=== PATIENT | female | born 1965 | race Caucasian/White ===

== ENCOUNTER → 2017-11-06 | Outpatient (CLI) | payer OTHER ==
[~2017-11-06] MED LIST: ASPI325 PO; ATOR10 PO; Aspirin EC325 MG PO; BASAGLAR K100 UNIT/1 SQ; BAYER CHEWABLE81 MG PO; BISA10S PR; BUSP10 PO; BUSP5 PO; Bactrim Ds Tab1 EACH PO; CARV3.125 PO; CLOP75 PO; CYCL10 PO; DOCU100 PO; DULO60; GABA600 PO; GLIP5 PO; HYDACE5 PO; IBUP800 PO; INSU100I6 SC; LEVSOD50 PO; LIDO5TO TOP; LISI20 PO; LISI5 PO; METF500 PO; METF500C PO; MIRALAX17 GM PO; Milk Of Ma400 MG/5 M PO; NAPR500 PO; Norco 5-325 Ta1 EACH PO; Novolog Fl100 UNIT/1 SC; Novolog100 UNIT/2; PANT40 PO; Plavix75 MG PO; Prinivil10 MG PO; Roxicodone15 MG PO; SIMV10 PO; SIMV40 PO; TOPI25 PO; TRAZ100 PO; TRAZ50 PO; Ventolin5 MG/1 ML INH
[2017-11-06 13:20] LABS: Source, Urine Catheter
[2017-11-06 13:55] LABS: Bilirubin, Urine Neg (Neg); Blood, Urine Neg (Neg); Glucose Qualitative, Urine Neg (Neg); Ketones, Urine Neg (Neg); Leukocyte Esterase, Urine 2+ (Neg); Nitrite, Urine Neg (Neg); Protein, Urine Neg (Neg); Specific Gravity, Urine 1.015 (1.003-1.022); Urobilinogen, Urine NORM (Normal)
[2017-11-06 13:57] LABS: Appearance, Urine Clear (Clear); Color, Urine Yellow (P-Yellow)
[2017-11-06 13:58] LABS: Bacteria Mod /hpf; Red Blood Cells, Urine 0-2 /hpf (0-2); Squamous Epithelial Cells Not Seen /hpf (Few)
== END | disposition home or self-care (01) ==
LOC: LAB UVN 13:19
PROVIDERS: Family Medicine
DX: N39.0 Urinary tract infection, site not specified (principal)
CPT/HCPCS: 81001; 87077; 87086; 87186

== ENCOUNTER 2018-07-02 18:00 | Emergency (ER) | payer OTHER ==
[~2018-07-02] VITALS: Ht 170.2 cm; Wt 99.0 kg
[~2018-07-02 18:00] MED LIST changes: -ATOR10 PO; -DULO60; -LEVSOD50 PO; -TOPI25 PO
[2018-07-02 18:35] LABS: Source, Urine Clean Catch
[2018-07-02 18:37] LABS: Appearance, Urine Clear (Clear); Bilirubin, Urine Neg (Neg); Blood, Urine 1+ (Neg); Color, Urine Yellow (P-Yellow); Glucose Qualitative, Urine 4+ (Neg); Ketones, Urine 3+ (Neg); Leukocyte Esterase, Urine 2+ (Neg); Nitrite, Urine Neg (Neg); Protein, Urine 2+ (Neg); Urobilinogen, Urine 1+ (Normal)
[2018-07-02 18:43] LABS: Bacteria Few /hpf; Squamous Epithelial Cells Few /hpf (Few)
[2018-07-02 18:47] LABS: U Amphetamine Screen Not Detected; U Barbituate Screen Not Detected; U Benzodiazapine Screen Not Detected; U Buprenorphine Screen Not Detected; U Cannabinoids Screen DETECTED; U Cocaine Screen Not Detected; U Methadone Screen Not Detected; U Methamphetamine Screen Not Detected; U Opiates Screen Not Detected; U Oxycodone Screen Not Detected; U Phencyclidine Screen Not Detected; U Propoxyphene Screen Not Detected
[2018-07-02 18:55] LABS: BASOPHILS ABSOLUTE AUTO 0.15 K/mm3 (0.00-0.23); BASOPHILS PERCENT AUTO 1 % (0-2); EOSINOPHILS ABSOLUTE AUTO 0.55 K/mm3 (0.00-0.68); EOSINOPHILS PERCENT AUTO 3 % (0-6); Hematocrit 48.9 % (33.0-51.0); Hemoglobin 17.1 g/dL (11.5-16.0); IMMATURE GRAN ABSOLUTE AUTO 0.09 K/mm3 (0.00-0.10); IMMATURE GRAN PERCENT AUTO 1 % (0-1); LYMPHOCYTES ABSOLUTE AUTO 2.88 K/mm3 (0.84-5.20); LYMPHOCYTES PERCENT AUTO 18 % (21-46); MONOCYTES ABSOLUTE AUTO 0.81 K/mm3 (0.16-1.47); MONOCYTES PERCENT AUTO 5 % (4-13); Mean Corpuscular HGB 27.9 pg (26.0-34.0); Mean Corpuscular Volume 80 fL (80-100); Mean Platelet Volume 10.3 fL (9.1-12.4); NEUTROPHILS ABSOLUTE AUTO 11.65 K/mm3 (1.96-9.15); NEUTROPHILS PERCENT AUTO 72 % (41-73); Platelet Count 268 K/mm3 (150-400); RDW Coefficient Variation 13.7 % (11.7-14.2); Red Blood Cell Count 6.13 M/mm3 (3.80-5.20); White Blood Cell Count 16.13 K/mm3 (4.00-11.30)
[2018-07-02 19:21] LABS: Alanine Aminotransfer (ALT/SGP 22 U/L (12-78); Albumin, Blood 3.7 g/dL (3.4-5.0); Albumin/Globulin Ratio 0.9 (0.8-1.8); Alk Phos 159 U/L (50-136); Anion Gap 10 mmol/L (6-16); Aspartate Aminotrans (AST/SGOT 22 U/L (12-37); Bilirubin, Total 0.5 mg/dL (0.1-1.0); Blood Urea Nitrogen 14 mg/dL (8-24); Bun/Creatinine Ratio 28.3 (12.0-20.0); CO2, Blood 23 mmol/L (21-32); Calcium, Blood 9.2 mg/dL (8.5-10.1); Chloride, Blood 98 mmol/L (98-108); Creatinine, Blood 0.49 mg/dL (0.40-1.00); Globulin, Blood 3.9 g/dL (2.2-4.0); Glomerular Filtration Rate >60 (60-); Glucose, Blood 364 mg/dL (70-99); Potassium, Blood 4.7 mmol/L (3.5-5.5); Sodium, Blood 131 mmol/L (136-145); Total Protein, Blood 7.6 g/dL (6.4-8.2)
[2018-07-02 23:17] LABS: International Normalized Ratio 0.95; Prothrombin Time Results 9.8 Sec (9.7-11.5)
== END 2018-07-03 00:04 | disposition short-term general hospital (02) ==
LOC: ER 18:00
PROVIDERS: Emergency Medicine
DX: I63.232 Cerebral infarction due to unspecified occlusion or stenosis of left carotid arteries (principal); E11.9 Type 2 diabetes mellitus without complications; I10 Essential (primary) hypertension; I25.2 Old myocardial infarction; Z79.899 Other long term (current) drug therapy; Z79.4 Long term (current) use of insulin; Z79.82 Long term (current) use of aspirin; Z87.891 Personal history of nicotine dependence
CPT/HCPCS: 70450; 70496; 70498; 80053; 81001; 85025; 85610; 85730; 87077; 87086; 87186; 93005; 93010; 96361; 96365; 96367; 96375; 96376; 99285-25; J0696; J1170; J1644; J1885; J2060; J3010; J7030; Q3014; Q9967

== ENCOUNTER 2018-10-21 14:03 | Inpatient (IN) | payer OTHER ==
[~2018-10-21] VITALS: Ht 170.2 cm; Wt 96.2 kg
[~2018-10-21 14:03] MED LIST changes: -BASAGLAR K100 UNIT/1 SQ; -CLOP75 PO; +DULO60; -GABA600 PO
[2018-10-21 15:12] LABS: BASOPHILS PERCENT AUTO 1 % (0-2); EOSINOPHILS ABSOLUTE AUTO 0.49 K/mm3 (0.00-0.68); EOSINOPHILS PERCENT AUTO 4 % (0-6); Hematocrit 46.5 % (33.0-51.0); Hemoglobin 14.8 g/dL (11.5-16.0); IMMATURE GRAN PERCENT AUTO 1 % (0-1); LYMPHOCYTES ABSOLUTE AUTO 3.15 K/mm3 (0.84-5.20); LYMPHOCYTES PERCENT AUTO 27 % (21-46); MONOCYTES ABSOLUTE AUTO 0.75 K/mm3 (0.16-1.47); MONOCYTES PERCENT AUTO 6 % (4-13); Mean Corpuscular HGB 25.5 pg (26.0-34.0); Mean Corpuscular HGB Conc 31.8 g/dL (31.5-36.5); NEUTROPHILS ABSOLUTE AUTO 7.11 K/mm3 (1.96-9.15); NEUTROPHILS PERCENT AUTO 61 % (41-73); Platelet Count 228 K/mm3 (150-400); RDW Coefficient Variation 15.6 % (11.7-14.2)
[2018-10-21 15:15] LABS: Mean Corpuscular Volume 80 fL (80-100)
[2018-10-21 15:30] LABS: Anion Gap 7 mmol/L (6-16); Blood Urea Nitrogen 21 mg/dL (8-24); Bun/Creatinine Ratio 30.6 (12.0-20.0); CO2, Blood 27 mmol/L (21-32); Calcium, Blood 8.8 mg/dL (8.5-10.1); Chloride, Blood 101 mmol/L (98-108); Creatinine, Blood 0.69 mg/dL (0.40-1.00); Glomerular Filtration Rate >60 (60-); Glucose, Blood 298 mg/dL (70-99); Potassium, Blood 4.5 mmol/L (3.5-5.5); Sodium, Blood 135 mmol/L (136-145)
[2018-10-21] MEDS ORDERED: FENTANYL1 EAC1 TD (15:43)
[2018-10-22 05:49] LABS: Hematocrit 43.9 % (33.0-51.0); Hemoglobin 13.7 g/dL (11.5-16.0); Mean Corpuscular HGB 25.3 pg (26.0-34.0); Mean Corpuscular HGB Conc 31.2 g/dL (31.5-36.5); Mean Corpuscular Volume 81 fL (80-100); Platelet Count 188 K/mm3 (150-400); RDW Coefficient Variation 15.8 % (11.7-14.2); RDW Standard Deviation 46.1 fL (35.1-46.3); Red Blood Cell Count 5.42 M/mm3 (3.80-5.20); White Blood Cell Count 9.77 K/mm3 (4.00-11.30)
[2018-10-22 06:09] LABS: Anion Gap 6 mmol/L (6-16); Blood Urea Nitrogen 24 mg/dL (8-24); Bun/Creatinine Ratio 35.6 (12.0-20.0); CO2, Blood 26 mmol/L (21-32); Calcium, Blood 8.4 mg/dL (8.5-10.1); Chloride, Blood 104 mmol/L (98-108); Creatinine, Blood 0.68 mg/dL (0.40-1.00); Glomerular Filtration Rate >60 (60-); Glucose, Blood 305 mg/dL (70-99); Potassium, Blood 4.3 mmol/L (3.5-5.5); Sodium, Blood 136 mmol/L (136-145)
== END 2018-10-24 12:21 | DRG 908 ==
LOC: ER 14:03 → SURS 16:55
PROVIDERS: Emergency Medicine; Nurse Practitioner Acute Care; Podiatrist; ADMIT Hospitalist
PROC: 0KBW0ZZ Excision of Left Foot Muscle, Open Approach (ICD-10-PCS; principal; 2018-10-23 13:45)
DX: T81.89XA Other complications of procedures, not elsewhere classified, initial encounter (principal); E11.52 Type 2 diabetes mellitus with diabetic peripheral angiopathy with gangrene; I96 Gangrene, not elsewhere classified; E11.621 Type 2 diabetes mellitus with foot ulcer; E03.9 Hypothyroidism, unspecified; Z95.5 Presence of coronary angioplasty implant and graft; Z86.73 Personal history of transient ischemic attack (TIA), and cerebral infarction without residual deficits; I25.10 Atherosclerotic heart disease of native coronary artery without angina pectoris; I10 Essential (primary) hypertension; E11.42 Type 2 diabetes mellitus with diabetic polyneuropathy; Z79.4 Long term (current) use of insulin; Z85.42 Personal history of malignant neoplasm of other parts of uterus; L97.523 Non-pressure chronic ulcer of other part of left foot with necrosis of muscle; F17.210 Nicotine dependence, cigarettes, uncomplicated; Z66 Do not resuscitate; E11.65 Type 2 diabetes mellitus with hyperglycemia
CPT/HCPCS: 36415; 73620; 80048; 82947; 83605; 85025; 85027; 85651; 87040; 87071; 87075; 87077; 87186; 87205; 93922; 96365; 96366; 96375; 99285-25; J1100; J1170; J2250; J2370; J2405; J3010; J3370; J7030; J7050; J7120; V2790

== ENCOUNTER 2018-11-24 14:34 | Inpatient (IN) | payer OTHER ==
[~2018-11-24] VITALS: Ht 170.2 cm; Wt 96.6 kg
[~2018-11-24 14:34] MED LIST changes: +FENTANYL1 EAC1 TD
[2018-11-24 15:02] LABS: BASOPHILS ABSOLUTE AUTO 0.05 K/mm3 (0.00-0.23); BASOPHILS PERCENT AUTO 1 % (0-2); EOSINOPHILS ABSOLUTE AUTO 0.32 K/mm3 (0.00-0.68); EOSINOPHILS PERCENT AUTO 4 % (0-6); Hematocrit 45.6 % (33.0-51.0); Hemoglobin 14.6 g/dL (11.5-16.0); IMMATURE GRAN ABSOLUTE AUTO 0.08 K/mm3 (0.00-0.10); IMMATURE GRAN PERCENT AUTO 1 % (0-1); LYMPHOCYTES ABSOLUTE AUTO 2.49 K/mm3 (0.84-5.20); LYMPHOCYTES PERCENT AUTO 34 % (21-46); MONOCYTES ABSOLUTE AUTO 0.47 K/mm3 (0.16-1.47); MONOCYTES PERCENT AUTO 6 % (4-13); Mean Corpuscular Volume 81 fL (80-100); Mean Platelet Volume 10.9 fL (9.1-12.4); NEUTROPHILS ABSOLUTE AUTO 3.97 K/mm3 (1.96-9.15); NEUTROPHILS PERCENT AUTO 54 % (41-73); Platelet Count 160 K/mm3 (150-400); RDW Coefficient Variation 15.4 % (11.7-14.2); RDW Standard Deviation 45.1 fL (35.1-46.3); Red Blood Cell Count 5.62 M/mm3 (3.80-5.20); White Blood Cell Count 7.38 K/mm3 (4.00-11.30)
[2018-11-24 15:30] LABS: Alanine Aminotransfer (ALT/SGP 121 U/L (12-78); Albumin/Globulin Ratio 0.8 (0.8-1.8); Alk Phos 480 U/L (50-136); Anion Gap 9 mmol/L (6-16); Aspartate Aminotrans (AST/SGOT 84 U/L (12-37); Bilirubin, Total 0.2 mg/dL (0.1-1.0); Blood Urea Nitrogen 10 mg/dL (8-24); Bun/Creatinine Ratio 15.4 (12.0-20.0); CO2, Blood 25 mmol/L (21-32); Calcium, Blood 8.3 mg/dL (8.5-10.1); Chloride, Blood 103 mmol/L (98-108); Creatinine, Blood 0.65 mg/dL (0.40-1.00); Globulin, Blood 3.8 g/dL (2.2-4.0); Glomerular Filtration Rate >60 (60-); Glucose, Blood 359 mg/dL (70-99); Potassium, Blood 4.1 mmol/L (3.5-5.5); Sodium, Blood 137 mmol/L (136-145); Total Protein, Blood 6.8 g/dL (6.4-8.2)
[2018-11-24] MEDS ORDERED: **INCOMPLETE MED REC (17:24)
[2018-11-24] MEDS ORDERED: LEVSOD50 PO (17:39)
[2018-11-24] MEDS ORDERED: ATOR80 PO (17:39)
[2018-11-24] MEDS ORDERED: CLOP75 PO (17:42)
[2018-11-24] MEDS ORDERED: TOPI50 PO (17:43)
[2018-11-24] MEDS ORDERED: TRAZ100 PO (17:44)
[2018-11-24] MEDS ORDERED: CARV3.125 PO (17:44)
[2018-11-24] MEDS ORDERED: GABA600 PO (17:46)
[2018-11-24] MEDS ORDERED: OXYCODONE HCL E10 MG PO (17:46)
[2018-11-24] MEDS ORDERED: PREVNAR 13 SYR0.5 ML IM (17:48)
[2018-11-24] MEDS ORDERED: Humalog100 UNIT/3 SC (17:49)
[2018-11-24] MEDS ORDERED: BASAGLAR K100 UNIT/1 SQ (17:51)
[2018-11-24] MEDS ORDERED: OXYC5 PO (17:52)
[2018-11-24] MEDS ORDERED: IBUP600 PO (17:54)
[2018-11-24] MEDS ORDERED: LACT10SY PO (17:55)
[2018-11-24] MEDS ORDERED: Milk Of Ma400 MG/5 M PO (17:56)
[2018-11-24] MEDS ORDERED: Enema133 M1 PR (17:58)
[2018-11-24] MEDS ORDERED: CVS DISPOSABLE399 ML PR (17:58)
[2018-11-24] MEDS ORDERED: GLYCPS PR (17:59)
[2018-11-25 04:21] LABS: Hematocrit 43.2 % (33.0-51.0); Hemoglobin 13.5 g/dL (11.5-16.0); Mean Corpuscular HGB 25.5 pg (26.0-34.0); Mean Corpuscular HGB Conc 31.3 g/dL (31.5-36.5); Mean Corpuscular Volume 82 fL (80-100); Mean Platelet Volume 10.9 fL (9.1-12.4); Platelet Count 136 K/mm3 (150-400); RDW Coefficient Variation 15.7 % (11.7-14.2); RDW Standard Deviation 46.1 fL (35.1-46.3); White Blood Cell Count 8.03 K/mm3 (4.00-11.30)
[2018-11-25 04:30] LABS: International Normalized Ratio 0.94
[2018-11-25 04:50] LABS: Alanine Aminotransfer (ALT/SGP 100 U/L (12-78); Albumin, Blood 2.6 g/dL (3.4-5.0); Albumin/Globulin Ratio 0.8 (0.8-1.8); Alk Phos 397 U/L (50-136); Anion Gap 6 mmol/L (6-16); Aspartate Aminotrans (AST/SGOT 57 U/L (12-37); Bilirubin, Total 0.5 mg/dL (0.1-1.0); Blood Urea Nitrogen 12 mg/dL (8-24); CO2, Blood 26 mmol/L (21-32); Calcium, Blood 8.2 mg/dL (8.5-10.1); Chloride, Blood 108 mmol/L (98-108); Creatinine, Blood 0.71 mg/dL (0.40-1.00); Globulin, Blood 3.3 g/dL (2.2-4.0); Glomerular Filtration Rate >60 (60-); Glucose, Blood 228 mg/dL (70-99); Potassium, Blood 4.3 mmol/L (3.5-5.5); Sodium, Blood 140 mmol/L (136-145); Total Protein, Blood 5.9 g/dL (6.4-8.2)
--- NOTE | 2018-11-25 07:47 | NUR ---
SHIFT SUMMARY PT A&O X4 T/O SHIFT. ADMITTED FROM ER; SEE PHOTOS OF WOUND D/T L GREAT TOE AMPUTAION SITE. GAUZE AND LOOSE PHILL WRAP FOR LIGHT SEROUS WEEPING AND PER PT REQUEST. LLE ELEVATED. PAIN IN LLE MANAGED PER EMAR. IV GTT PER EMAR. BLOOD SUGAR MANGED PER ORDERS AND PROTOCOL. RA; PT DENIES SOB AND CP. PT STAND PIVOT TO BSC X1 WITH ASSIT. PT BED MOBILE, ENCOURAGED TO REPOSITION WHEN AWAKE ON CARE ROUNDING AND WHEN PT AWAKE FOR OTHER CARE. CALL LIGHT IN REACH; PT DEMONSTRATES USE. SCD'S TO BLE'S. REPORT GIVEN TO DAY SHIFT RN; PT DECLINED BED SIDE REPORT IF SLEEPING.
[2018-11-25 15:32] LABS: Vancomycin, Trough 21.3 ug/mL (5.0-10.0)
--- NOTE | 2018-11-25 18:00 | NUR ---
SHIFT SUMMARY PT ANXIOUS FOR SURGERY TOMORROW. OUT TO SMOKE VIA W/C TWICE DURING MY SHIFT. C/O HIGH PAIN IN L FOOT. TOLERATING DIET, VOIDING, DISCUSSED BOWEL CARE.
--- NOTE | 2018-11-26 02:30 | NUR ---
PENDING OR TODAY.PT TO BE NPO AFTER 0300 AND REPORTS LONG ACTING OXYCONTIN INEFFECTIVE FOR PAIN.ALSO REPORTS FENTANYL MINIMALLY EFFECTIVE. PT REPORTS UNABLE TO SLEEP.I HAVE NOTED PT SLEEPING INTERMITTENTLY, BUT NOT SOLID AND AWAKENS EASILY. PT WISHES PO MEDS FOR PAIN OR SLEEP. I HAVE CALL OUT TO DR LOPEZ. WAITING RETURNED CALL..
[2018-11-26 04:12] LABS: BASOPHILS ABSOLUTE AUTO 0.04 K/mm3 (0.00-0.23); BASOPHILS PERCENT AUTO 1 % (0-2); EOSINOPHILS ABSOLUTE AUTO 0.38 K/mm3 (0.00-0.68); EOSINOPHILS PERCENT AUTO 5 % (0-6); Hematocrit 42.2 % (33.0-51.0); Hemoglobin 13.5 g/dL (11.5-16.0); IMMATURE GRAN ABSOLUTE AUTO 0.05 K/mm3 (0.00-0.10); IMMATURE GRAN PERCENT AUTO 1 % (0-1); LYMPHOCYTES PERCENT AUTO 28 % (21-46); MONOCYTES ABSOLUTE AUTO 0.43 K/mm3 (0.16-1.47); MONOCYTES PERCENT AUTO 6 % (4-13); Mean Corpuscular HGB 25.4 pg (26.0-34.0); Mean Platelet Volume 10.5 fL (9.1-12.4); NEUTROPHILS ABSOLUTE AUTO 4.48 K/mm3 (1.96-9.15); NEUTROPHILS PERCENT AUTO 60 % (41-73); Platelet Count 135 K/mm3 (150-400); RDW Coefficient Variation 15.6 % (11.7-14.2); RDW Standard Deviation 44.2 fL (35.1-46.3); Red Blood Cell Count 5.32 M/mm3 (3.80-5.20); White Blood Cell Count 7.48 K/mm3 (4.00-11.30)
[2018-11-26 04:17] LABS: Mean Corpuscular Volume 79 fL (80-100)
[2018-11-26 04:41] LABS: C-REACTIVE PROTEIN, EXT RANGE 0.618 mg/dL (0.000-0.300)
[2018-11-26 04:42] LABS: Alanine Aminotransfer (ALT/SGP 92 U/L (12-78); Albumin, Blood 2.6 g/dL (3.4-5.0); Albumin/Globulin Ratio 0.8 (0.8-1.8); Alk Phos 388 U/L (50-136); Anion Gap 9 mmol/L (6-16); Aspartate Aminotrans (AST/SGOT 48 U/L (12-37); Bilirubin, Total 0.5 mg/dL (0.1-1.0); Blood Urea Nitrogen 13 mg/dL (8-24); Bun/Creatinine Ratio 18.4 (12.0-20.0); CO2, Blood 25 mmol/L (21-32); Calcium, Blood 8.4 mg/dL (8.5-10.1); Chloride, Blood 104 mmol/L (98-108); Creatinine, Blood 0.71 mg/dL (0.40-1.00); Globulin, Blood 3.4 g/dL (2.2-4.0); Glomerular Filtration Rate >60 (60-); Glucose, Blood 299 mg/dL (70-99); Potassium, Blood 4.2 mmol/L (3.5-5.5); Sodium, Blood 138 mmol/L (136-145)
--- NOTE | 2018-11-26 06:10 | NUR ---
SUMMARY PT SLEEPING POST ATIVAN DOSE. REMAINS NPO PENDING POSSIBLE OR TODAY.
--- NOTE | 2018-11-26 09:10 | NUR ---
PT REFUSED PART OF ASSESSMENT. PT RIGHT FOOT PULSE PALPABLE, REFUSED ASSESSING L FOOT AT THIS TIME. PT REPORTS DOES NOT WANT TO MOVE AT THIS TIME FOR RN TO COMPLETE FULL ASSESSMENT. PT REPORTS "COCCYX IS SORE FROM LYING ON IT BUT I DO NOT HAVE ANY SORES ON IT." PT ALSO WISHES FOR RN TO NOT ASSESS OTHER SKIN, REPORTS NOT HAVING ANY REDNESS ANYWHERE (UNDER BREAST, GROIN, SKIN FOLDS). PT HAS DRESSING WITH PHILL WRAP TO LEFT FOOT. PT A/O. PT MEDS DISCUSSED WITH CLINICAL COORDINATOR PT IS NPO. SOME OF PO MEDS GIVEN WITH SIP OF WATER WITHOUT DIFFICULTY WITH HOB ELEVATED.
--- NOTE | 2018-11-26 10:58 | NUR ---
ISTRATE HERE TO SEE PT.
--- NOTE | 2018-11-26 17:00 | NUR ---
PT RECENTLY TO HAVE PROCEDURE WITH OTHER STAFF, DISCUSSED PT'S MEDS AND CBG LAST CHECKED AROUND NOON. PT WENT ON GURNEY. PT VOIDED BEFORE GOING TO HAVE PROCEDURE.
--- NOTE | 2018-11-26 17:22 | NUR ---
SHIFT SUMMARY PT BEEN NPO FOR PROCEDURE. PT BEEN ASSISTED WITH ADL'S PRN. PT BEEN MED PRN FOR PAIN. PT VOIDING. PT NOW OUT OF ROOM FOR PROCEDURE. PT BEEN EDUCATED ON SMOKING CESSATION.
--- NOTE | 2018-11-26 17:28 | NUR ---
1700- TO PACU FOR OR WAITING. C/O SEVERE PAIN IN BOTH FEET. PT UP TO VOID LARGE AMT.
--- NOTE | 2018-11-26 20:20 | NUR ---
PT RETURNED FROM PACU. REPORT FROM CHUN JIMENEZ. PT DROWSY, COOPERATIVE. SHE C/O PAIN AND DRY MOUTH. GIVEN WATER AND A YOGURT, MEDICATED FOR PAIN, MEDICATED WITH SCHEDULED MEDS PER EMAR.
[2018-11-26 21:01] LABS: Vancomycin, Trough 16.5 ug/mL (5.0-10.0)
--- NOTE | 2018-11-27 00:35 | NUR ---
CALLED DR. LOPEZ TO ASK FOR PAIN MEDICATION. PT STATES THE FENTANYL DOES NOT HELP THE PAIN. ORDERED DILAUDID 1-2 Q6H. WILL MEDICATE PT PER EMAR.
[2018-11-27 05:49] LABS: BASOPHILS ABSOLUTE AUTO 0.06 K/mm3 (0.00-0.23); BASOPHILS PERCENT AUTO 1 % (0-2); EOSINOPHILS PERCENT AUTO 4 % (0-6); Hematocrit 44.8 % (33.0-51.0); Hemoglobin 14.1 g/dL (11.5-16.0); IMMATURE GRAN ABSOLUTE AUTO 0.03 K/mm3 (0.00-0.10); IMMATURE GRAN PERCENT AUTO 0 % (0-1); LYMPHOCYTES ABSOLUTE AUTO 2.04 K/mm3 (0.84-5.20); LYMPHOCYTES PERCENT AUTO 20 % (21-46); MONOCYTES ABSOLUTE AUTO 0.55 K/mm3 (0.16-1.47); MONOCYTES PERCENT AUTO 5 % (4-13); Mean Corpuscular HGB 25.8 pg (26.0-34.0); Mean Corpuscular HGB Conc 31.5 g/dL (31.5-36.5); Mean Platelet Volume 10.9 fL (9.1-12.4); NEUTROPHILS ABSOLUTE AUTO 7.31 K/mm3 (1.96-9.15); NEUTROPHILS PERCENT AUTO 70 % (41-73); Platelet Count 148 K/mm3 (150-400); RDW Coefficient Variation 15.7 % (11.7-14.2); RDW Standard Deviation 46.8 fL (35.1-46.3); Red Blood Cell Count 5.46 M/mm3 (3.80-5.20); White Blood Cell Count 10.39 K/mm3 (4.00-11.30)
[2018-11-27 06:00] LABS: Mean Corpuscular Volume 82 fL (80-100)
[2018-11-27 06:10] LABS: Alanine Aminotransfer (ALT/SGP 88 U/L (12-78); Albumin, Blood 2.8 g/dL (3.4-5.0); Albumin/Globulin Ratio 0.8 (0.8-1.8); Alk Phos 377 U/L (50-136); Anion Gap 7 mmol/L (6-16); Aspartate Aminotrans (AST/SGOT 53 U/L (12-37); Bilirubin, Total 0.5 mg/dL (0.1-1.0); Blood Urea Nitrogen 13 mg/dL (8-24); Bun/Creatinine Ratio 17.6 (12.0-20.0); CO2, Blood 29 mmol/L (21-32); Calcium, Blood 8.6 mg/dL (8.5-10.1); Chloride, Blood 105 mmol/L (98-108); Creatinine, Blood 0.74 mg/dL (0.40-1.00); Globulin, Blood 3.3 g/dL (2.2-4.0); Glomerular Filtration Rate >60 (60-); Glucose, Blood 181 mg/dL (70-99); Potassium, Blood 4.1 mmol/L (3.5-5.5); Sodium, Blood 141 mmol/L (136-145); Total Protein, Blood 6.1 g/dL (6.4-8.2)
--- NOTE | 2018-11-27 07:31 | NUR ---
SHIFT SUMMARY PT IS POD 1 TRANSMETATARSAL AMPUTATION OF THE LEFT FOOT. SHE HAS HX OF CHRONIC PAIN, NONHEALING ULCERS, DIABETIC NEUROPATHY, AND DIFFICULT TO MANAGE PAIN. WE DID GET HER ADDITIONAL IV PAIN MEDICATION ORDERED LAST NIGHT SHE REPORTED THE FENTANYL WAS INEFFECTIVE AT MANAGING HER PAIN, BUT THE IV DILAUDID WAS NOT ESPECIALLY EFFECTIVE EITHER ACCORDING TO THE PATIENT. SHE IS 50% WT BEARING TO THE LLE BUT REFUSED TO GET UP LAST NIGHT. SHE USED THE BEDPAN. PT CRIES AND CUSSES R/T PAIN CONSTANTLY. REPORT PASSED TO ONCOMING SHIFT.
--- NOTE | 2018-11-27 18:15 | NUR ---
SUMMARY PATIENT DOZES AT TIME AND WHEN STAFF ENTERS ROOM MOANS AND THRASHES IN BEDS, PATIENT REQUESTS PAIN MEDICATION EACH TIME SHE IS AWAKENED AND TELLS ME THE LOWEST HER PAIN HAS BEEN THIS SHIFT IS 8. PATIENT REPORTS PAIN IN BILATERAL FEET WHICH IS WORSE IN SIRGICAL SITE. PATIENT REPOSITIONS SELF IN BED
--- NOTE | 2018-11-28 04:49 | NUR ---
SHIFT SUMMARY: PT S/P FOR PARTIAL L FOOT AMPUTATION. CONSISTANTLY RATING PAIN 8-9/10 DESPITE BEING MEDICATED. GETTING OXCONTIN BID, FENT PATCH AND DILAUDID 2-4 MG PRN FOR BREAKTHROUGH PAIN. GIVEN 3 MG OF DILAUDID AT APPROX 2150 LAST NIGHT- DECREASE IN BP AND HR AT APPROX 0000. BP AT 85/54 AND HR AT 50. FLUIDS INCREASED TO 125. BP INCREASED TO 98/66 AND HR TO 64 AN HOUR LATER. MORNING VS WNL. USING BEDPAN PRN. MEPILIX PLACED TO COCCYX.
[2018-11-28 05:10] LABS: BASOPHILS ABSOLUTE AUTO 0.05 K/mm3 (0.00-0.23); BASOPHILS PERCENT AUTO 1 % (0-2); EOSINOPHILS ABSOLUTE AUTO 0.43 K/mm3 (0.00-0.68); EOSINOPHILS PERCENT AUTO 4 % (0-6); Hematocrit 39.3 % (33.0-51.0); Hemoglobin 12.3 g/dL (11.5-16.0); IMMATURE GRAN ABSOLUTE AUTO 0.06 K/mm3 (0.00-0.10); IMMATURE GRAN PERCENT AUTO 1 % (0-1); LYMPHOCYTES ABSOLUTE AUTO 2.73 K/mm3 (0.84-5.20); LYMPHOCYTES PERCENT AUTO 25 % (21-46); MONOCYTES ABSOLUTE AUTO 0.97 K/mm3 (0.16-1.47); MONOCYTES PERCENT AUTO 9 % (4-13); Mean Corpuscular HGB 25.7 pg (26.0-34.0); Mean Corpuscular HGB Conc 31.3 g/dL (31.5-36.5); Mean Corpuscular Volume 82 fL (80-100); Mean Platelet Volume 10.3 fL (9.1-12.4); NEUTROPHILS ABSOLUTE AUTO 6.87 K/mm3 (1.96-9.15); NEUTROPHILS PERCENT AUTO 62 % (41-73); Platelet Count 130 K/mm3 (150-400); RDW Coefficient Variation 15.9 % (11.7-14.2); RDW Standard Deviation 47.1 fL (35.1-46.3); Red Blood Cell Count 4.78 M/mm3 (3.80-5.20); White Blood Cell Count 11.11 K/mm3 (4.00-11.30)
[2018-11-28 05:26] LABS: Anion Gap 8 mmol/L (6-16); Blood Urea Nitrogen 18 mg/dL (8-24); Bun/Creatinine Ratio 22.6 (12.0-20.0); CO2, Blood 25 mmol/L (21-32); Calcium, Blood 8.1 mg/dL (8.5-10.1); Chloride, Blood 102 mmol/L (98-108); Glomerular Filtration Rate >60 (60-); Glucose, Blood 207 mg/dL (70-99); Potassium, Blood 4.8 mmol/L (3.5-5.5); Sodium, Blood 135 mmol/L (136-145)
--- NOTE | 2018-11-28 18:17 | NUR ---
SHIFT SUMMARY PT HAS DONE WELL THIS SHIFT. C/O PAIN IN LLE R/T AMPUTATION. MEDICATED WITH 2MG DILAUDID Q4 AND SCHEDUALED OXYCONTIN. SBA TO BEDSIDE COMODE, PT TOLERATED WELL. PHILL WRAP ON LEFT FOOT C/D/I.
--- NOTE | 2018-11-29 04:34 | NUR ---
SHIFT SUMMARY: PT HAS DONE WELL THIS SHIFT. CONTINUES TO RATE PAIN 7-8/10 HOWEVER REPORTS DOING BETTER TODAY. MEDICATED WITH SCHED OXY 10 MG AND 2MG DILAUDID Q4 PER EMAR. OOB TO BSC WITH ONE SBA. 50% WB TO LL. PT REPORTS INCREASED PAIN DURING TRANFERS. CONTINUE TO ENCOURAGE GETTING OUT OF BED. MEPILEX DRESSING ON COCCYX FOR REDDENED AREA. PT EDUCATED AND ENCOURAGED TO USE IS, HOWEVER PT REFUSED. FLUIDS INFUSING WITH ABX. VOIDING AND PIPPA REG DIET.
[2018-11-29 09:06] LABS: BASOPHILS ABSOLUTE AUTO 0.08 K/mm3 (0.00-0.23); BASOPHILS PERCENT AUTO 1 % (0-2); EOSINOPHILS ABSOLUTE AUTO 0.33 K/mm3 (0.00-0.68); EOSINOPHILS PERCENT AUTO 4 % (0-6); Hematocrit 41.7 % (33.0-51.0); Hemoglobin 13.2 g/dL (11.5-16.0); IMMATURE GRAN ABSOLUTE AUTO 0.08 K/mm3 (0.00-0.10); IMMATURE GRAN PERCENT AUTO 1 % (0-1); LYMPHOCYTES PERCENT AUTO 17 % (21-46); MONOCYTES ABSOLUTE AUTO 0.62 K/mm3 (0.16-1.47); MONOCYTES PERCENT AUTO 7 % (4-13); Mean Corpuscular HGB 25.9 pg (26.0-34.0); Mean Corpuscular HGB Conc 31.7 g/dL (31.5-36.5); Mean Corpuscular Volume 82 fL (80-100); Mean Platelet Volume 10.1 fL (9.1-12.4); NEUTROPHILS PERCENT AUTO 71 % (41-73); Platelet Count 138 K/mm3 (150-400); RDW Coefficient Variation 15.8 % (11.7-14.2); RDW Standard Deviation 46.7 fL (35.1-46.3); Red Blood Cell Count 5.09 M/mm3 (3.80-5.20); White Blood Cell Count 8.91 K/mm3 (4.00-11.30)
[2018-11-29 09:17] LABS: Alanine Aminotransfer (ALT/SGP 88 U/L (12-78); Albumin, Blood 2.5 g/dL (3.4-5.0); Albumin/Globulin Ratio 0.7 (0.8-1.8); Alk Phos 486 U/L (50-136); Anion Gap 6 mmol/L (6-16); Aspartate Aminotrans (AST/SGOT 76 U/L (12-37); Bilirubin, Total 0.6 mg/dL (0.1-1.0); Blood Urea Nitrogen 17 mg/dL (8-24); Bun/Creatinine Ratio 24.1 (12.0-20.0); CO2, Blood 28 mmol/L (21-32); Calcium, Blood 8.4 mg/dL (8.5-10.1); Chloride, Blood 101 mmol/L (98-108); Creatinine, Blood 0.71 mg/dL (0.40-1.00); Globulin, Blood 3.7 g/dL (2.2-4.0); Glomerular Filtration Rate >60 (60-); Glucose, Blood 257 mg/dL (70-99); Potassium, Blood 4.5 mmol/L (3.5-5.5); Sodium, Blood 135 mmol/L (136-145); Total Protein, Blood 6.2 g/dL (6.4-8.2)
[2018-11-29 09:32] LABS: Vancomycin, Trough 22.5 ug/mL (5.0-10.0)
[2018-11-29 15:23] LABS: Vancomycin, Random 17.3 ug/mL
--- NOTE | 2018-11-29 18:00 | NUR ---
SUMMARY PATIENT WITH FREQUENT REQUESTS FOR PAIN MEDICATION, DOZING AND WATCHING MOVIES ON HER IPAD THROUGHOUT SHIFT. OOB TO COMMODE WITH STANDBY ASSIST. LEFT FOOT DRESSING DRY AND INTACT
[2018-11-30 04:41] LABS: BASOPHILS ABSOLUTE AUTO 0.06 K/mm3 (0.00-0.23); BASOPHILS PERCENT AUTO 1 % (0-2); EOSINOPHILS ABSOLUTE AUTO 0.39 K/mm3 (0.00-0.68); EOSINOPHILS PERCENT AUTO 5 % (0-6); Hematocrit 39.8 % (33.0-51.0); Hemoglobin 12.6 g/dL (11.5-16.0); IMMATURE GRAN ABSOLUTE AUTO 0.05 K/mm3 (0.00-0.10); IMMATURE GRAN PERCENT AUTO 1 % (0-1); LYMPHOCYTES ABSOLUTE AUTO 1.81 K/mm3 (0.84-5.20); LYMPHOCYTES PERCENT AUTO 23 % (21-46); MONOCYTES ABSOLUTE AUTO 0.56 K/mm3 (0.16-1.47); MONOCYTES PERCENT AUTO 7 % (4-13); Mean Corpuscular HGB 25.8 pg (26.0-34.0); Mean Corpuscular HGB Conc 31.7 g/dL (31.5-36.5); Mean Corpuscular Volume 82 fL (80-100); Mean Platelet Volume 10.4 fL (9.1-12.4); NEUTROPHILS ABSOLUTE AUTO 4.96 K/mm3 (1.96-9.15); NEUTROPHILS PERCENT AUTO 63 % (41-73); Platelet Count 158 K/mm3 (150-400); RDW Coefficient Variation 15.5 % (11.7-14.2); RDW Standard Deviation 45.9 fL (35.1-46.3); Red Blood Cell Count 4.88 M/mm3 (3.80-5.20); White Blood Cell Count 7.83 K/mm3 (4.00-11.30)
--- NOTE | 2018-11-30 04:54 | NUR ---
SHIFT SUMMARY: NO ACUTE CHANGES THIS SHIFT. MEDICATING WITH SCHED OXYCONTIN 10MG AND 2MG DILAUDID PRN. PT SHOWING SOME IMPROVEMENT WITH PAIN MANAGEMENT. RESTING MOST OF SHIFT. PIVOTING TO BSC WITH ONE SBA. PLAN FOR ULTRASOUND OF ABD THIS AM R/T ELEVATED LFT'S.
[2018-11-30 04:59] LABS: Alanine Aminotransfer (ALT/SGP 105 U/L (12-78); Albumin, Blood 2.5 g/dL (3.4-5.0); Albumin/Globulin Ratio 0.7 (0.8-1.8); Alk Phos 544 U/L (50-136); Anion Gap 8 mmol/L (6-16); Aspartate Aminotrans (AST/SGOT 94 U/L (12-37); Bilirubin, Total 0.3 mg/dL (0.1-1.0); Blood Urea Nitrogen 17 mg/dL (8-24); CO2, Blood 27 mmol/L (21-32); Calcium, Blood 8.6 mg/dL (8.5-10.1); Chloride, Blood 102 mmol/L (98-108); Creatinine, Blood 0.63 mg/dL (0.40-1.00); Globulin, Blood 3.7 g/dL (2.2-4.0); Glomerular Filtration Rate >60 (60-); Glucose, Blood 201 mg/dL (70-99); Potassium, Blood 4.2 mmol/L (3.5-5.5); Sodium, Blood 137 mmol/L (136-145); Total Protein, Blood 6.2 g/dL (6.4-8.2)
--- NOTE | 2018-11-30 08:10 | NUR ---
PT ASLEEP WAKES TO VERBAL STIMULI PT REPORTS PAIN 7/10 DRESSING CDI STUMP ELEV PT ALSO REPORTING ABD PAIN TO L LOWER SIDE NO NAUSEA BUT OFF AND ON DIARRHEA
[2018-11-30 09:47] LABS: Vancomycin, Trough 16.7 ug/mL (5.0-10.0)
--- NOTE | 2018-11-30 14:32 | NUR ---
pt visiting with family npo for us of abd
--- NOTE | 2018-11-30 16:13 | NUR ---
Initial Visit: Consult received for pain/symptom managment. Pt is well known to Palliative Care. She is alert, oriented, anxious at this time. She reports pain 10/10 to nursing, she does not share where the pain is. She is moaning and irritable, she seems afraid. Pt declines therapeutic hand massage. She declines scalp or hindu therapeutic massage. She does accept a lavender patch. She reports that she has used lavander in the past, denies sensitivity/allergy. Instructions were reviewed with pt and nurse. Patch to be removed at 8 hours. Pt and nursing verbalize understanding. Pt does not agree to guided imagery exercise. Instructed that she is declining therapies that are meant to promote overall wellness. She states that she does not want them at this time. Will remain available.
--- NOTE | 2018-11-30 17:31 | NUR ---
pt eating dinner meds given as sched
--- NOTE | 2018-11-30 18:51 | NUR ---
pt wanting to know if she can have pain meds next dose is due at 2000 for iv pain meds 2100 for oral pain meds
--- NOTE | 2018-12-01 06:46 | NUR ---
SUMMARY PT SLEPT OFF AND ON. NO ACUTE CHANGES. RATES PAIN LEVEL 7-8 WITH GOAL LEVEL BEING 6. PT APPEARS TO FALL SLEEP AFTER DILAUDID.
--- NOTE | 2018-12-01 08:00 | NUR ---
PT SITTING UP IN BED REPORTS PAIN / PAIN STATED SHE FEELS LIKE SHE MIGHT BE GETTING CONSTIPATED REQ MIRALAX ASSISTED PT TO BSC TO VOID ALSO TALKED WITH PT ABOUT STARTING PHYSICAL THEARPY PT DID HAVE ANXIETY RE THIS
--- NOTE | 2018-12-01 08:25 | NUR ---
MES GIVEN SCHED PT REQ A ICE PACK FOR HER FOOT AND SOME LOTION
[2018-12-01 09:04] LABS: Alanine Aminotransfer (ALT/SGP 110 U/L (12-78); Albumin, Blood 2.5 g/dL (3.4-5.0); Albumin/Globulin Ratio 0.6 (0.8-1.8); Alk Phos 570 U/L (50-136); Anion Gap 5 mmol/L (6-16); Aspartate Aminotrans (AST/SGOT 104 U/L (12-37); Bilirubin, Total 0.6 mg/dL (0.1-1.0); Blood Urea Nitrogen 19 mg/dL (8-24); CO2, Blood 29 mmol/L (21-32); Calcium, Blood 8.7 mg/dL (8.5-10.1); Chloride, Blood 101 mmol/L (98-108); Creatinine, Blood 0.83 mg/dL (0.40-1.00); Globulin, Blood 4.2 g/dL (2.2-4.0); Glomerular Filtration Rate >60 (60-); Glucose, Blood 153 mg/dL (70-99); Sodium, Blood 135 mmol/L (136-145); Total Protein, Blood 6.7 g/dL (6.4-8.2)
--- NOTE | 2018-12-01 09:22 | NUR ---
Pt gave consent for care to student nurse Shannon Barrera for 12/01/18.
--- NOTE | 2018-12-01 11:07 | NUR ---
DR BARRAGAN CALLED FOR GI CONSULT HEP PANEL ORDERED ALSO
--- NOTE | 2018-12-01 14:29 | NUR ---
NEW ICE PACK PLACED AND SCHED MEDS GIVEN PT ASKED WHEN PAIN MEDS ASR DUE NEXT 1600
--- NOTE | 2018-12-01 17:11 | NUR ---
miralax given with prune juice and butter heated given with sched meds pt stated still hving trouble going to the bathroom
--- NOTE | 2018-12-02 04:52 | NUR ---
CONTINUES TO IMPROVE, ABLE TO AMBULATE TO BSC WITHOUT SOB ON ROOM AIR. HAS ONLY REQUIRED PRN PAIN MED ONCE THIS SHIFT. DENIES PAIN, DISCOMFORT, OR FURTHER NEEDS AT THIS TIME. SAFETY MEASURES IN PLACE. WILL GIVE HAND OFF TO ONCOMING SHIFT USING SBAR DURING BEDSIDE REPORT.
[2018-12-02 06:15] LABS: HBSAG SCREEN Negative (Negative); HEP A AB, IGM Negative (Negative); HEP B CORE AB, IGM Negative (Negative); HEP C VIRUS AB <0.1 (0.0-0.9)
[2018-12-02 08:07] LABS: Alanine Aminotransfer (ALT/SGP 127 U/L (12-78); Albumin, Blood 2.7 g/dL (3.4-5.0); Albumin/Globulin Ratio 0.7 (0.8-1.8); Alk Phos 625 U/L (50-136); Anion Gap 6 mmol/L (6-16); Aspartate Aminotrans (AST/SGOT 114 U/L (12-37); Bilirubin, Total 0.4 mg/dL (0.1-1.0); Blood Urea Nitrogen 20 mg/dL (8-24); Bun/Creatinine Ratio 25.2 (12.0-20.0); CO2, Blood 30 mmol/L (21-32); Calcium, Blood 9.1 mg/dL (8.5-10.1); Chloride, Blood 102 mmol/L (98-108); Glomerular Filtration Rate >60 (60-); Glucose, Blood 178 mg/dL (70-99); Potassium, Blood 4.6 mmol/L (3.5-5.5); Sodium, Blood 138 mmol/L (136-145); Total Protein, Blood 6.7 g/dL (6.4-8.2)
--- NOTE | 2018-12-02 08:40 | NUR ---
PT PHILIP COOP. STATES PAIN IN NEW L STUMP ON FOOT. MOSTLY ON TOP. STATES HAS NERVE PAIN ALSO. A/O. SITTING UP IN BED. STATES PAIN WORSE SINCE SURG. H/R REG, NO MURMER NOTED. NO TELE. LUNGS CLEAR, RESP IS LABORED. STATES FROM PAIN. WILL MED PER EMAR. BT X4 LAST BM YEST. ABD LARGE. LOOSE SKIN. PT STATES NORM FOR HER. VOIDS PER BSC. 1 ASST. BED IN LOW POSITION, CALL LITE IN REACH, CALLS APPROP. WILL ASK DR MAYBERRY PAIN IN PROPORTION.
--- NOTE | 2018-12-02 09:29 | NUR ---
Spiritual care visit attempted. Patient declined having a spiritual care visit.
--- NOTE | 2018-12-02 11:21 | NUR ---
1000 PT IS MOANING IN PAIN. HAS BEEN RECEIVING 2 MG DILAUDID Q4. HS MORE AVAILABLE. GAVE 2MG 1030 PT STILL MOANING. IS AT 7 AND WANTING TO 6. IS MOANING, RESP HARD. WRITHING. GAVE ADDL 1 MG PER ORDER. 1130 PT STILL AWAKE TALKING, STATES PAIN NOW AT 6. IS TOLERABLE. NOT WRITHING . ABLE TO TALK SENTENCES. EYES HEAVY, PRESENTLY USING COMPUTER NOTEPAD.
--- NOTE | 2018-12-02 13:09 | NUR ---
SPOKE TO DR SENIOR, SHE STATES NOT SURE IF PAIN IS NORMAL. WILL ATTEMPT TO SEE FOOT SURGEON WHEN IN TODAY.
--- NOTE | 2018-12-02 14:16 | NUR ---
PT RESTING WATCHING COMP TABLET. RESP EASY UNLABORED FROM OUT SIDE DOOR. WENT TO ROOM. SHE STATES NEEDS PAIN MEDS. PAIN BACK TO AT LEAST 7. MED PER EMAR.
--- NOTE | 2018-12-02 14:43 | NUR ---
PT STATES FENTANYL DOES NEXT TO NOTHING. DILAUDID WORKS WELL FOR SHORT TIME. PAIN ALWAYS AT 7-8. PO MEDS DO OKAY, BUT NOT ENOUGH. PT REQUEST DROP FENTANYL AND CALL SANTANA GOOD DR, D.C FENTANYL AND DILAUDID. MOVE TO OXYCODONE AND OXYCONTIN. WILL WRITE ORDERS.
--- NOTE | 2018-12-02 14:48 | NUR ---
REMOVED FENTANYL PATCH. [id number]
--- NOTE | 2018-12-02 15:08 | NUR ---
CALLED DR NGUYEN, PT BP 181/105 P 91. ORDERS FOR HYDRAL Q6P 10MG IV. NYDIA UPSET, ORDERS FOR MAALOX ALSO.
--- NOTE | 2018-12-02 16:09 | NUR ---
PT 181/105, HYDRALAZINE ADMIN. NOW AT 155/88
--- NOTE | 2018-12-02 16:49 | NUR ---
PT C/O FENTANYL PATCH NOT HELLPFUL AND DILAUDID IV STOPS TOO SOON. SPOKE TO AND WAS ABLE TO GET MED CHANGES TO MORE PO AND OTHERS D/C'D. NO OTHER CONCERNS AT THIS TIME. BED IN LOW POSITION,C ALL LITE IN REACH, CALLS APROP
--- NOTE | 2018-12-02 18:42 | NUR ---
WRAP FOOT PER DR GEENA MELGOZA OIL EMULSION DRESSING OVER STITCHES. 1 ROLL GAUZE. LIGHT WRAP PHILL WRAP. DONE/
--- NOTE | 2018-12-03 06:46 | NUR ---
SUMMARY: PT IS POD6 FOR L TRANSMETATARSAL AMPUTATION. NO ACUTE CHANGE TONIGHT, VSS. SURGICAL SITE WNL. MEDICATED WITH SCHEDULED OXYCOTIN AND GIVEN ROXICODONE FOR BREAKTHROUGH PAIN X1, 5MG. PAIN SEEMS TO BE MANAGED, PT ABLE TO SLEEP. NO SAFETY CONCERNS AT THIS TIME.
[2018-12-03 08:03] LABS: Alanine Aminotransfer (ALT/SGP 114 U/L (12-78); Albumin, Blood 2.5 g/dL (3.4-5.0); Albumin/Globulin Ratio 0.6 (0.8-1.8); Alk Phos 519 U/L (50-136); Aspartate Aminotrans (AST/SGOT 101 U/L (12-37); Bilirubin, Direct <0.1 mg/dL (0.0-0.3); Bilirubin, Indirect Unable to Calculate mg/dL (0.1-0.7); Bilirubin, Total 0.6 mg/dL (0.1-1.0); Globulin, Blood 3.9 g/dL (2.2-4.0); Total Protein, Blood 6.4 g/dL (6.4-8.2)
[2018-12-03 08:22] LABS: International Normalized Ratio 0.98; Prothrombin Time Results 10.4 Sec (9.7-11.5)
== END 2018-12-03 16:40 | DRG 475 ==
LOC: ER 14:34 → SURS 17:54
PROVIDERS: Emergency Medicine; Internal Medicine; Nurse Practitioner Acute Care; Pharmacist; Podiatrist; ADMIT Family Medicine
PROC: 0Y6N0ZB Detachment at Left Foot, Partial 2nd Ray, Open Approach (ICD-10-PCS; 2018-11-26)
PROC: 0Y6N0ZC Detachment at Left Foot, Partial 3rd Ray, Open Approach (ICD-10-PCS; 2018-11-26)
PROC: 0Y6N0ZD Detachment at Left Foot, Partial 4th Ray, Open Approach (ICD-10-PCS; 2018-11-26)
PROC: 0Y6N0ZF Detachment at Left Foot, Partial 5th Ray, Open Approach (ICD-10-PCS; 2018-11-26)
PROC: 0Y6N0Z9 Detachment at Left Foot, Partial 1st Ray, Open Approach (ICD-10-PCS; principal; 2018-11-26 11:15)
DX: M86.9 Osteomyelitis, unspecified (principal); E11.52 Type 2 diabetes mellitus with diabetic peripheral angiopathy with gangrene; L03.90 Cellulitis, unspecified; E11.621 Type 2 diabetes mellitus with foot ulcer; F17.210 Nicotine dependence, cigarettes, uncomplicated; Z79.4 Long term (current) use of insulin; I25.10 Atherosclerotic heart disease of native coronary artery without angina pectoris; E11.42 Type 2 diabetes mellitus with diabetic polyneuropathy; E03.9 Hypothyroidism, unspecified; Z89.431 Acquired absence of right foot; R74.0 Nonspecific elevation of levels of transaminase and lactic acid dehydrogenase [LDH]; I10 Essential (primary) hypertension; E11.65 Type 2 diabetes mellitus with hyperglycemia; F41.9 Anxiety disorder, unspecified; L97.524 Non-pressure chronic ulcer of other part of left foot with necrosis of bone; S37.019D Minor contusion of unspecified kidney, subsequent encounter; G43.909 Migraine, unspecified, not intractable, without status migrainosus; I25.2 Old myocardial infarction; B95.61 Methicillin susceptible Staphylococcus aureus infection as the cause of diseases classified elsewhere; Z95.5 Presence of coronary angioplasty implant and graft
CPT/HCPCS: 36415; 76705; 80048; 80053; 80074; 80076; 80202; 82947; 85025; 85027; 85610; 85651; 86140; 87040; 87071; 87075; 87077; 87147; 87186; 88307; 88311; 96365; 96366; 96368; 96375; 99284-25; J0360; J0696; J1170; J2185; J2250; J2370; J2405; J3010; J3370; J7030; J7120

== ENCOUNTER 2019-04-26 11:49 | Day surgery (SDC) | payer OTHER ==
[~2019-04-26 11:49] MED LIST changes: +**INCOMPLETE MED REC; +ATOR80 PO; +BASAGLAR K100 UNIT/1 SQ; +CLOP75 PO; +CVS DISPOSABLE399 ML PR; +Enema133 M1 PR; +GABA600 PO; +GLYCPS PR; +Humalog100 UNIT/3 SC; +IBUP600 PO; +LACT10SY PO; +LEVSOD50 PO; +OXYC5 PO; +OXYCODONE HCL E10 MG PO; +PREVNAR 13 SYR0.5 ML IM; +TOPI50 PO
== END 2019-04-26 22:45 | disposition home or self-care (01) ==
LOC: WOUND 11:49
DX: E11.621 Type 2 diabetes mellitus with foot ulcer (principal); L97.522 Non-pressure chronic ulcer of other part of left foot with fat layer exposed; E11.51 Type 2 diabetes mellitus with diabetic peripheral angiopathy without gangrene; I73.9 Peripheral vascular disease, unspecified; I10 Essential (primary) hypertension; I25.10 Atherosclerotic heart disease of native coronary artery without angina pectoris; I25.2 Old myocardial infarction; G47.30 Sleep apnea, unspecified; F17.210 Nicotine dependence, cigarettes, uncomplicated; Z86.73 Personal history of transient ischemic attack (TIA), and cerebral infarction without residual deficits; Z95.5 Presence of coronary angioplasty implant and graft; Z89.422 Acquired absence of other left toe(s); Z89.412 Acquired absence of left great toe; Z88.0 Allergy status to penicillin

== ENCOUNTER 2019-05-10 13:32 | Day surgery (SDC) | payer OTHER | END 2019-05-10 23:03 | disposition home or self-care (01) | LOC: WOUND 13:32 | DX: E11.621 Type 2 diabetes mellitus with foot ulcer (principal); L97.512 Non-pressure chronic ulcer of other part of right foot with fat layer exposed | CPT/HCPCS: 36415; 83036; G0463 ==

== ENCOUNTER 2019-05-17 00:33 | Day surgery (SDC) | payer OTHER | END 2019-05-17 23:15 | disposition home or self-care (01) | LOC: WOUND | DX: T87.89 Other complications of amputation stump (principal); E11.621 Type 2 diabetes mellitus with foot ulcer; L97.521 Non-pressure chronic ulcer of other part of left foot limited to breakdown of skin; E11.51 Type 2 diabetes mellitus with diabetic peripheral angiopathy without gangrene; I73.9 Peripheral vascular disease, unspecified; I10 Essential (primary) hypertension; I25.10 Atherosclerotic heart disease of native coronary artery without angina pectoris; I25.2 Old myocardial infarction; Z86.73 Personal history of transient ischemic attack (TIA), and cerebral infarction without residual deficits; Z89.432 Acquired absence of left foot ==

== ENCOUNTER 2019-05-24 00:20 | Day surgery (SDC) | payer OTHER | END 2019-05-24 22:52 | disposition home or self-care (01) | LOC: WOUND 00:20 | DX: T87.89 Other complications of amputation stump (principal); E11.621 Type 2 diabetes mellitus with foot ulcer; L97.512 Non-pressure chronic ulcer of other part of right foot with fat layer exposed; I10 Essential (primary) hypertension; I25.2 Old myocardial infarction; I25.10 Atherosclerotic heart disease of native coronary artery without angina pectoris; Z95.5 Presence of coronary angioplasty implant and graft; Z86.73 Personal history of transient ischemic attack (TIA), and cerebral infarction without residual deficits; Z89.432 Acquired absence of left foot | CPT/HCPCS: 87070; 87075; 87077; 87147; 87186; 87205; G0463 ==

== ENCOUNTER 2019-05-31 00:28 | Day surgery (SDC) | payer OTHER | END 2019-05-31 22:54 | disposition home or self-care (01) | LOC: WOUND 00:28 | DX: T87.89 Other complications of amputation stump (principal); E11.621 Type 2 diabetes mellitus with foot ulcer; L97.512 Non-pressure chronic ulcer of other part of right foot with fat layer exposed; I10 Essential (primary) hypertension; Z86.73 Personal history of transient ischemic attack (TIA), and cerebral infarction without residual deficits; I25.10 Atherosclerotic heart disease of native coronary artery without angina pectoris; Z95.5 Presence of coronary angioplasty implant and graft | CPT/HCPCS: G0463 ==

== ENCOUNTER 2019-06-07 00:29 | Day surgery (SDC) | payer OTHER | END 2019-06-07 22:48 | disposition home or self-care (01) | LOC: WOUND 00:29 | DX: T87.89 Other complications of amputation stump (principal); E11.621 Type 2 diabetes mellitus with foot ulcer; L97.521 Non-pressure chronic ulcer of other part of left foot limited to breakdown of skin; E11.51 Type 2 diabetes mellitus with diabetic peripheral angiopathy without gangrene; I73.9 Peripheral vascular disease, unspecified; I10 Essential (primary) hypertension; I25.10 Atherosclerotic heart disease of native coronary artery without angina pectoris; Z86.73 Personal history of transient ischemic attack (TIA), and cerebral infarction without residual deficits; Z89.432 Acquired absence of left foot ==

== ENCOUNTER 2019-06-28 00:21 | Day surgery (SDC) | payer OTHER | END 2019-06-28 22:57 | disposition home or self-care (01) | LOC: WOUND 00:21 | DX: T87.89 Other complications of amputation stump (principal); E11.621 Type 2 diabetes mellitus with foot ulcer; L97.522 Non-pressure chronic ulcer of other part of left foot with fat layer exposed; L97.525 Non-pressure chronic ulcer of other part of left foot with muscle involvement without evidence of necrosis; L97.512 Non-pressure chronic ulcer of other part of right foot with fat layer exposed; I10 Essential (primary) hypertension; I25.10 Atherosclerotic heart disease of native coronary artery without angina pectoris; Z95.5 Presence of coronary angioplasty implant and graft; I25.2 Old myocardial infarction; Z86.73 Personal history of transient ischemic attack (TIA), and cerebral infarction without residual deficits | CPT/HCPCS: G0463 ==

== ENCOUNTER 2019-07-05 13:32 | Day surgery (SDC) | payer OTHER | END 2019-07-05 23:10 | disposition home or self-care (01) | LOC: WOUND 13:32 | DX: T87.89 Other complications of amputation stump (principal); E11.621 Type 2 diabetes mellitus with foot ulcer; L97.512 Non-pressure chronic ulcer of other part of right foot with fat layer exposed; L97.529 Non-pressure chronic ulcer of other part of left foot with unspecified severity; E11.51 Type 2 diabetes mellitus with diabetic peripheral angiopathy without gangrene; I73.9 Peripheral vascular disease, unspecified; I10 Essential (primary) hypertension; I25.10 Atherosclerotic heart disease of native coronary artery without angina pectoris; Z89.432 Acquired absence of left foot | CPT/HCPCS: G0463 ==

== ENCOUNTER 2019-07-12 00:30 | Day surgery (SDC) | payer OTHER | END 2019-07-12 23:08 | disposition home or self-care (01) | LOC: WOUND 00:30 | DX: T87.89 Other complications of amputation stump (principal); E11.621 Type 2 diabetes mellitus with foot ulcer; L97.522 Non-pressure chronic ulcer of other part of left foot with fat layer exposed; I10 Essential (primary) hypertension; G47.30 Sleep apnea, unspecified; I25.10 Atherosclerotic heart disease of native coronary artery without angina pectoris; E11.51 Type 2 diabetes mellitus with diabetic peripheral angiopathy without gangrene; Z86.73 Personal history of transient ischemic attack (TIA), and cerebral infarction without residual deficits | CPT/HCPCS: 82947; G0463 ==

== ENCOUNTER 2019-07-19 00:25 | Day surgery (SDC) | payer OTHER | END 2019-07-19 22:54 | disposition home or self-care (01) | LOC: WOUND 00:25 | DX: T81.89XA Other complications of procedures, not elsewhere classified, initial encounter (principal); E11.621 Type 2 diabetes mellitus with foot ulcer; L97.512 Non-pressure chronic ulcer of other part of right foot with fat layer exposed; E11.649 Type 2 diabetes mellitus with hypoglycemia without coma; I10 Essential (primary) hypertension; I25.2 Old myocardial infarction; I25.10 Atherosclerotic heart disease of native coronary artery without angina pectoris; Z95.5 Presence of coronary angioplasty implant and graft; Z86.73 Personal history of transient ischemic attack (TIA), and cerebral infarction without residual deficits | CPT/HCPCS: G0463 ==

== ENCOUNTER 2019-07-26 00:35 | Day surgery (SDC) | payer OTHER | END 2019-07-26 23:26 | disposition home or self-care (01) | LOC: WOUND 00:35 | DX: E11.621 Type 2 diabetes mellitus with foot ulcer (principal); L97.512 Non-pressure chronic ulcer of other part of right foot with fat layer exposed; E11.649 Type 2 diabetes mellitus with hypoglycemia without coma; E11.51 Type 2 diabetes mellitus with diabetic peripheral angiopathy without gangrene; I73.9 Peripheral vascular disease, unspecified; I10 Essential (primary) hypertension; Z89.422 Acquired absence of other left toe(s) | CPT/HCPCS: G0463 ==

== ENCOUNTER 2019-08-09 00:30 | Day surgery (SDC) | payer OTHER | END 2019-08-09 22:49 | disposition home or self-care (01) | LOC: WOUND 00:30 | DX: E11.621 Type 2 diabetes mellitus with foot ulcer (principal); E11.51 Type 2 diabetes mellitus with diabetic peripheral angiopathy without gangrene; E11.622 Type 2 diabetes mellitus with other skin ulcer; L97.529 Non-pressure chronic ulcer of other part of left foot with unspecified severity; E11.649 Type 2 diabetes mellitus with hypoglycemia without coma; L97.512 Non-pressure chronic ulcer of other part of right foot with fat layer exposed; I10 Essential (primary) hypertension; I25.10 Atherosclerotic heart disease of native coronary artery without angina pectoris; I25.2 Old myocardial infarction; Z86.73 Personal history of transient ischemic attack (TIA), and cerebral infarction without residual deficits; Z95.5 Presence of coronary angioplasty implant and graft; Z89.422 Acquired absence of other left toe(s); Z79.4 Long term (current) use of insulin; Z79.899 Other long term (current) drug therapy; Z79.02 Long term (current) use of antithrombotics/antiplatelets | CPT/HCPCS: G0463 ==

== ENCOUNTER 2019-08-23 13:36 | Day surgery (SDC) | payer OTHER | END 2019-08-23 22:43 | disposition home or self-care (01) | LOC: WOUND 13:36 | DX: E11.622 Type 2 diabetes mellitus with other skin ulcer (principal); L97.512 Non-pressure chronic ulcer of other part of right foot with fat layer exposed; E11.51 Type 2 diabetes mellitus with diabetic peripheral angiopathy without gangrene; E11.649 Type 2 diabetes mellitus with hypoglycemia without coma; I10 Essential (primary) hypertension; I25.10 Atherosclerotic heart disease of native coronary artery without angina pectoris; I25.2 Old myocardial infarction; Z95.5 Presence of coronary angioplasty implant and graft; Z79.4 Long term (current) use of insulin; Z79.899 Other long term (current) drug therapy | CPT/HCPCS: G0463 ==

== ENCOUNTER 2019-08-30 00:29 | Day surgery (SDC) | payer OTHER | END 2019-08-30 22:57 | disposition home or self-care (01) | LOC: WOUND 00:29 | DX: E11.621 Type 2 diabetes mellitus with foot ulcer (principal); L97.512 Non-pressure chronic ulcer of other part of right foot with fat layer exposed; I10 Essential (primary) hypertension; E11.649 Type 2 diabetes mellitus with hypoglycemia without coma; I25.2 Old myocardial infarction; Z86.73 Personal history of transient ischemic attack (TIA), and cerebral infarction without residual deficits; Z79.02 Long term (current) use of antithrombotics/antiplatelets; Z79.4 Long term (current) use of insulin ==

== ENCOUNTER 2019-10-26 00:10 | Day surgery (SDC) | payer OTHER | END 2019-10-26 23:02 | disposition home or self-care (01) | LOC: WOUND 00:10 | DX: E11.621 Type 2 diabetes mellitus with foot ulcer (principal); L97.522 Non-pressure chronic ulcer of other part of left foot with fat layer exposed; E11.51 Type 2 diabetes mellitus with diabetic peripheral angiopathy without gangrene; I10 Essential (primary) hypertension; I25.10 Atherosclerotic heart disease of native coronary artery without angina pectoris; I25.2 Old myocardial infarction; F17.210 Nicotine dependence, cigarettes, uncomplicated; G43.909 Migraine, unspecified, not intractable, without status migrainosus; E78.5 Hyperlipidemia, unspecified; E03.9 Hypothyroidism, unspecified; Z86.73 Personal history of transient ischemic attack (TIA), and cerebral infarction without residual deficits; Z95.5 Presence of coronary angioplasty implant and graft; Z88.1 Allergy status to other antibiotic agents; Z88.6 Allergy status to analgesic agent; Z79.4 Long term (current) use of insulin; Z79.899 Other long term (current) drug therapy | CPT/HCPCS: 87070; 87075; 87077; 87147; 87186; 87205; G0463 ==

== ENCOUNTER 2019-11-08 13:40 | Day surgery (SDC) | payer OTHER | END 2019-11-08 23:12 | disposition home or self-care (01) | LOC: WOUND 13:40 | DX: E11.621 Type 2 diabetes mellitus with foot ulcer (principal); L97.522 Non-pressure chronic ulcer of other part of left foot with fat layer exposed; I25.10 Atherosclerotic heart disease of native coronary artery without angina pectoris; F17.200 Nicotine dependence, unspecified, uncomplicated; I10 Essential (primary) hypertension; Z86.73 Personal history of transient ischemic attack (TIA), and cerebral infarction without residual deficits; Z95.5 Presence of coronary angioplasty implant and graft; Z79.4 Long term (current) use of insulin; Z79.02 Long term (current) use of antithrombotics/antiplatelets; Z79.899 Other long term (current) drug therapy ==

== ENCOUNTER 2019-11-16 00:20 | Day surgery (SDC) | payer OTHER | END 2019-11-16 22:58 | disposition home or self-care (01) | LOC: WOUND 00:20 | DX: E11.621 Type 2 diabetes mellitus with foot ulcer (principal); L97.522 Non-pressure chronic ulcer of other part of left foot with fat layer exposed; F17.200 Nicotine dependence, unspecified, uncomplicated; Z79.899 Other long term (current) drug therapy; Z79.02 Long term (current) use of antithrombotics/antiplatelets; Z79.4 Long term (current) use of insulin | CPT/HCPCS: G0463 ==

== ENCOUNTER → 2019-11-29 | Day surgery (SDC) | payer OTHER | LOC: WOUND 00:19 | DX: E11.621 Type 2 diabetes mellitus with foot ulcer (principal); L97.512 Non-pressure chronic ulcer of other part of right foot with fat layer exposed; L97.522 Non-pressure chronic ulcer of other part of left foot with fat layer exposed; E11.51 Type 2 diabetes mellitus with diabetic peripheral angiopathy without gangrene; I10 Essential (primary) hypertension; I25.10 Atherosclerotic heart disease of native coronary artery without angina pectoris; F17.200 Nicotine dependence, unspecified, uncomplicated; I25.2 Old myocardial infarction; Z95.5 Presence of coronary angioplasty implant and graft; Z79.899 Other long term (current) drug therapy; Z79.02 Long term (current) use of antithrombotics/antiplatelets; Z79.4 Long term (current) use of insulin ==

== ENCOUNTER 2019-12-08 17:40 | Emergency (ER) | payer OTHER ==
[~2019-12-08] VITALS: Ht 167.6 cm; Wt 99.8 kg
== END 2019-12-08 19:23 | disposition home or self-care (01) ==
LOC: ER 17:40
DX: E11.621 Type 2 diabetes mellitus with foot ulcer (principal); R58 Hemorrhage, not elsewhere classified; E11.51 Type 2 diabetes mellitus with diabetic peripheral angiopathy without gangrene; E11.42 Type 2 diabetes mellitus with diabetic polyneuropathy; I10 Essential (primary) hypertension; I25.10 Atherosclerotic heart disease of native coronary artery without angina pectoris; E03.9 Hypothyroidism, unspecified; Z86.73 Personal history of transient ischemic attack (TIA), and cerebral infarction without residual deficits; Z88.0 Allergy status to penicillin; Z88.8 Allergy status to other drugs, medicaments and biological substances; Z79.4 Long term (current) use of insulin; Z79.899 Other long term (current) drug therapy

== ENCOUNTER 2019-12-13 00:32 | Day surgery (SDC) | payer OTHER | END 2019-12-13 22:50 | disposition home or self-care (01) | LOC: WOUND 00:32 | DX: E11.621 Type 2 diabetes mellitus with foot ulcer (principal); L97.512 Non-pressure chronic ulcer of other part of right foot with fat layer exposed; L97.522 Non-pressure chronic ulcer of other part of left foot with fat layer exposed; I10 Essential (primary) hypertension; E11.51 Type 2 diabetes mellitus with diabetic peripheral angiopathy without gangrene; F17.200 Nicotine dependence, unspecified, uncomplicated; Z79.4 Long term (current) use of insulin; Z79.899 Other long term (current) drug therapy; Z79.02 Long term (current) use of antithrombotics/antiplatelets ==

== ENCOUNTER 2019-12-20 00:14 | Day surgery (SDC) | payer OTHER | END 2019-12-20 12:00 | disposition home or self-care (01) | LOC: WOUND 00:14 | DX: E11.621 Type 2 diabetes mellitus with foot ulcer (principal); E11.51 Type 2 diabetes mellitus with diabetic peripheral angiopathy without gangrene; L97.522 Non-pressure chronic ulcer of other part of left foot with fat layer exposed; L97.512 Non-pressure chronic ulcer of other part of right foot with fat layer exposed; F17.200 Nicotine dependence, unspecified, uncomplicated; I10 Essential (primary) hypertension; I25.10 Atherosclerotic heart disease of native coronary artery without angina pectoris; I25.2 Old myocardial infarction; Z95.5 Presence of coronary angioplasty implant and graft; Z86.73 Personal history of transient ischemic attack (TIA), and cerebral infarction without residual deficits; Z79.02 Long term (current) use of antithrombotics/antiplatelets; Z79.4 Long term (current) use of insulin ==

== ENCOUNTER 2019-12-27 00:20 | Day surgery (SDC) | payer OTHER | END 2019-12-27 23:04 | disposition home or self-care (01) | LOC: WOUND 00:20 | DX: E11.621 Type 2 diabetes mellitus with foot ulcer (principal); L97.525 Non-pressure chronic ulcer of other part of left foot with muscle involvement without evidence of necrosis; L97.512 Non-pressure chronic ulcer of other part of right foot with fat layer exposed; I10 Essential (primary) hypertension; I25.10 Atherosclerotic heart disease of native coronary artery without angina pectoris; Z95.5 Presence of coronary angioplasty implant and graft; Z72.0 Tobacco use ==

== ENCOUNTER 2020-01-03 01:30 | Day surgery (SDC) | payer OTHER ==
[~2020-01-03 01:30] MED LIST changes: -Humalog100 UNIT/3 SC; +NOVOLOG FL100 UNIT/1 SC
[2020-01-03] MEDS ORDERED: GLIP5 PO ×2 (17:19)
[2020-01-03] MEDS ORDERED: BUSP5 PO ×2 (17:20)
== END 2020-01-03 22:39 | disposition home or self-care (01) ==
LOC: WOUND 01:30
DX: E11.621 Type 2 diabetes mellitus with foot ulcer (principal); L97.522 Non-pressure chronic ulcer of other part of left foot with fat layer exposed; L97.512 Non-pressure chronic ulcer of other part of right foot with fat layer exposed; E11.51 Type 2 diabetes mellitus with diabetic peripheral angiopathy without gangrene; F17.200 Nicotine dependence, unspecified, uncomplicated; I10 Essential (primary) hypertension; Z89.432 Acquired absence of left foot; Z79.899 Other long term (current) drug therapy; Z79.4 Long term (current) use of insulin; Z79.02 Long term (current) use of antithrombotics/antiplatelets
CPT/HCPCS: 82947

== ENCOUNTER 2020-01-03 14:53 | Inpatient (IN) | payer OTHER ==
[~2020-01-03] VITALS: Ht 170.2 cm; Wt 103.0 kg
[2020-01-03 15:27] LABS: BASOPHILS PERCENT AUTO 1 % (0-2); EOSINOPHILS ABSOLUTE AUTO 0.23 K/mm3 (0.00-0.68); EOSINOPHILS PERCENT AUTO 2 % (0-6); Hematocrit 51.5 % (33.0-51.0); IMMATURE GRAN ABSOLUTE AUTO 0.12 K/mm3 (0.00-0.10); IMMATURE GRAN PERCENT AUTO 1 % (0-1); LYMPHOCYTES ABSOLUTE AUTO 1.32 K/mm3 (0.84-5.20); LYMPHOCYTES PERCENT AUTO 11 % (21-46); MONOCYTES ABSOLUTE AUTO 0.61 K/mm3 (0.16-1.47); MONOCYTES PERCENT AUTO 5 % (4-13); Mean Corpuscular HGB 27.6 pg (26.0-34.0); Mean Corpuscular Volume 84 fL (80-100); Mean Platelet Volume 9.5 fL (9.1-12.4); NEUTROPHILS ABSOLUTE AUTO 9.53 K/mm3 (1.96-9.15); NEUTROPHILS PERCENT AUTO 80 % (41-73); Platelet Count 206 K/mm3 (150-400); RDW Coefficient Variation 14.8 % (11.7-14.2); RDW Standard Deviation 44.4 fL (35.1-46.3); Red Blood Cell Count 6.17 M/mm3 (3.80-5.20); White Blood Cell Count 11.91 K/mm3 (4.00-11.30)
[2020-01-03 15:55] LABS: Alanine Aminotransfer (ALT/SGP 28 U/L (12-78); Albumin, Blood 3.5 g/dL (3.4-5.0); Albumin/Globulin Ratio 0.8 (0.8-1.8); Alk Phos 161 U/L (50-136); Anion Gap 7 mmol/L (6-16); Aspartate Aminotrans (AST/SGOT 15 U/L (12-37); Bilirubin, Total 0.2 mg/dL (0.1-1.0); Blood Urea Nitrogen 11 mg/dL (8-24); Bun/Creatinine Ratio 14.7 (12.0-20.0); CO2, Blood 29 mmol/L (21-32); Chloride, Blood 98 mmol/L (98-108); Creatinine, Blood 0.75 mg/dL (0.40-1.00); Globulin, Blood 4.3 g/dL (2.2-4.0); Glomerular Filtration Rate >60 (60-); Glucose, Blood 231 mg/dL (70-99); Potassium, Blood 4.4 mmol/L (3.5-5.5); Sodium, Blood 134 mmol/L (136-145); Total Protein, Blood 7.8 g/dL (6.4-8.2)
[2020-01-03 16:06] LABS: International Normalized Ratio 0.91; Prothrombin Time Results 9.8 Sec (9.7-11.5)
[2020-01-03] MEDS ORDERED: GLIP5 PO ×2 (17:19)
[2020-01-03] MEDS ORDERED: BUSP5 PO ×2 (17:20)
--- NOTE | 2020-01-04 04:04 | NUR ---
SHIFT SUMMARY ADMITTED FOR VASCULAR ULCER ON LEFT FOOT. FULL CODE. PLAN IS FOR CONSULT DR BROWN TO PERFORM AN INTERVENTION. PT HAS BEEN NPO SINCE MIDNIGHT. PT'S PAIN IS UNCONTROLLED. CONTACT PRECAUTIONS FOR ESBL IN WOUND, URINE, AND RECTAL. AC CHEMSTICKS - MED SS, RA, A&O X4, ALLERGIC TO TYLENOL & AMOXICILLIN. ALL TOES ARE MISSING ON BOTH FEET. SHE REFUSED TO ALLOW ME TO ASSESS HER FEET. HX: MT, STENTS, DM2, PVD.
[2020-01-04 05:10] LABS: BASOPHILS ABSOLUTE AUTO 0.05 K/mm3 (0.00-0.23); BASOPHILS PERCENT AUTO 1 % (0-2); EOSINOPHILS ABSOLUTE AUTO 0.19 K/mm3 (0.00-0.68); EOSINOPHILS PERCENT AUTO 2 % (0-6); Hematocrit 43.7 % (33.0-51.0); Hemoglobin 14.3 g/dL (11.5-16.0); IMMATURE GRAN PERCENT AUTO 1 % (0-1); LYMPHOCYTES ABSOLUTE AUTO 1.09 K/mm3 (0.84-5.20); LYMPHOCYTES PERCENT AUTO 12 % (21-46); MONOCYTES ABSOLUTE AUTO 0.63 K/mm3 (0.16-1.47); MONOCYTES PERCENT AUTO 7 % (4-13); Mean Corpuscular HGB 27.6 pg (26.0-34.0); Mean Corpuscular HGB Conc 32.7 g/dL (31.5-36.5); Mean Corpuscular Volume 84 fL (80-100); Mean Platelet Volume 9.9 fL (9.1-12.4); NEUTROPHILS ABSOLUTE AUTO 7.09 K/mm3 (1.96-9.15); NEUTROPHILS PERCENT AUTO 78 % (41-73); Platelet Count 152 K/mm3 (150-400); RDW Coefficient Variation 14.7 % (11.7-14.2); RDW Standard Deviation 45.1 fL (35.1-46.3); Red Blood Cell Count 5.18 M/mm3 (3.80-5.20); White Blood Cell Count 9.15 K/mm3 (4.00-11.30)
[2020-01-04 05:26] LABS: Anion Gap 5 mmol/L (6-16); Blood Urea Nitrogen 12 mg/dL (8-24); Bun/Creatinine Ratio 16.2 (12.0-20.0); CO2, Blood 29 mmol/L (21-32); Calcium, Blood 8.4 mg/dL (8.5-10.1); Chloride, Blood 100 mmol/L (98-108); Creatinine, Blood 0.74 mg/dL (0.40-1.00); Glomerular Filtration Rate >60 (60-); Glucose, Blood 217 mg/dL (70-99); Potassium, Blood 4.3 mmol/L (3.5-5.5); Sodium, Blood 134 mmol/L (136-145)
--- NOTE | 2020-01-04 13:19 | NUR ---
Spiritual care visit conducted. Patient is sitting on the bed and crying. I ask patient what is happening with her and she explains about the upcoming surgery and how maddening it is to try to stay psyched up for an amputation when you have no idea how long you will have to wait. Patient also tells about her smoking addiction, her anxiety issues and the difficulty in not being able to have family come and support her. Patient's RN comes in and brings meds for anxiety and nausea. Patient then asks if she can roam around the halls to get get out of the confined space of her room (which is code for sneaking outside for a cigarette). I listen empathically, normalize patient's experience and provide a calming presence, companionship and prayer. Patient responds well and displays eviednce of reduced stress. I will continue to remain available to patient and family.
--- NOTE | 2020-01-04 18:16 | NUR ---
PT ARRIVED FROM [facility] TEARFUL AND C/O PAIN. PT MEDICATED MULTIPLE TIMES BY DUAL RATE SUPERVISOR RN PRIOR TO ARRIVAL TO PCU. DR LEDEZMA NOTIFIED, ATTEMPTED CURRENT ORDERED PT REGIME FOR PAIN CONTROL AND PT HAS HAD NO RELIEF. MIRTA FROM PALLITIVE CARE ROUNDED ON PT AND WAS REACHING OUT TO DR LEDEZMA FOR POSSIBLE PHYSICAL AERODYNAMICIST. INSTRUCTED PT MULTIPLE TIMES TO MAINTAIN LYING FLAT. PT HAS BEEN FOUND SITTING UPRIGHT OR KEEPING LEGS BENT. RIGHT FEMORAL SITE HAS ANGIOSEAL IN PLACE, CURRENTLY IS SOFT/NONTENDER/NO SWELLING, SLIGHT BLOOD SPOT ON DRESSING. PT REFUSED PULSE ASSESSMENT R/T PAIN AND SENSITIVITY TO FEET.
--- NOTE | 2020-01-04 20:24 | NUR ---
review of prn meds with phsycian and nursing. Review of positioning after off immobilzation for post procedure care. pt risk for compartment symdrome.
--- NOTE | 2020-01-05 04:45 | NUR ---
SHIFT SUMMARY: PATIENT CRYING LOUDLY FOR FIRST 2 HOURS OF SHIFT, ADMINISTRATIVE UNDERWRITER INITIATED PER MD ORDERS AT APPROX 2000. AT APPROX 2200 PATIENT FELL ASLEEP. APPROX 2330 PATIENT O2 SATURATION STARTED EXIBITING SHARP DROPS FROM 90 TO 70% SATURATION. PATIENT HAD LONG PAUSES IN HER BREATHING AND VERY LETHARGIC/DIFFICULT TO ARROUSE. O2 NC PLACED AT 5L/MIN AND ADMINISTRATIVE UNDERWRITER DECREASED TO 1MG/HR FROM 1.4/HR. PATIENT O2 APPEARED TO STABALIZE AND STAYED ABOVE 90% SATURATION. ELIZABETH LAMBERT MADE AWARE AND ORDERS RECIEVED TO CHANGE CONTINUOUS RATE TO 0.7MG/HR. PATIENT MAINTAINED GOOD O2 SATURATION THE REST OF THE SHIFT WITH O2 ON. PATIENT ALSO NOW WAKING EASILY TO SPEECH. PATIENT VERY ACTIVE IN BED, TURNING FREQUENTLY. BED LOW AND LOCKED WITH EXIT AND TAB ALARM ON, ALL OTHER VSS STABLE, CALL LIGHT WITHIN REACH.
--- NOTE | 2020-01-05 07:39 | NUR ---
ASSUMED PATIENT CARE. PATIENT RESTING COMFORTABLY IN BED, NO NEW DISCHARGE NOTED AT GROIN SITE. CASE MANAGEMENT RN PUMP VERIFIED. NO SIGNS OF ACUTE DISTRESS, WCTM.
[2020-01-05 08:10] LABS: Hematocrit 45.6 % (33.0-51.0); Hemoglobin 14.9 g/dL (11.5-16.0); Mean Corpuscular HGB 27.6 pg (26.0-34.0); Mean Corpuscular HGB Conc 32.7 g/dL (31.5-36.5); Mean Corpuscular Volume 85 fL (80-100); Mean Platelet Volume 9.6 fL (9.1-12.4); Platelet Count 176 K/mm3 (150-400); RDW Coefficient Variation 14.9 % (11.7-14.2); RDW Standard Deviation 45.1 fL (35.1-46.3); Red Blood Cell Count 5.39 M/mm3 (3.80-5.20); White Blood Cell Count 11.03 K/mm3 (4.00-11.30)
[2020-01-05 08:26] LABS: Anion Gap 6 mmol/L (6-16); Blood Urea Nitrogen 12 mg/dL (8-24); Bun/Creatinine Ratio 16.3 (12.0-20.0); CO2, Blood 28 mmol/L (21-32); Calcium, Blood 8.8 mg/dL (8.5-10.1); Chloride, Blood 99 mmol/L (98-108); Creatinine, Blood 0.73 mg/dL (0.40-1.00); Glomerular Filtration Rate >60 (60-); Glucose, Blood 255 mg/dL (70-99); Potassium, Blood 4.9 mmol/L (3.5-5.5); Sodium, Blood 133 mmol/L (136-145)
--- NOTE | 2020-01-05 08:37 | NUR ---
Spoke with Marybeth Yañez regarding isolation
--- NOTE | 2020-01-05 09:40 | NUR ---
The pt's tack maker pump patient control wire was sheared clean off of its connection. Frayed wire completely disconnected from the machine. Pt states she didn't do it. States it must have been caught in the bed or something. [employer] called to report equipment in need of repair. Currently searching the hospital for another MERCHANDISER RETAIL REPRESENTATIVE pump. Pt is currently recieving the continuous infusion, but obviously unable to give herself the programmed self dosing. Phenergan given at this time, with good relief. She is watching TV, dozing on and off. NO groaning, moaning, restlessness nor agitation at this time. States she is in pain.
--- NOTE | 2020-01-05 12:17 | NUR ---
Spiritual care visit conducted. Patient tells me that she had a procedure yesterday and will have another today. She is quiet and pleasant. Patient tells me personal issues and fears. I listen empathically and provide companionship and prayer. Patient responds well and shows signs of an elevated mood. I will continue to remain available to patient and family.
--- NOTE | 2020-01-05 18:09 | NUR ---
PATIENT RETURNED FROM BEVERAGE SALES CONSULTANT. NO DISCHARGE NOTED AT GROIN SITE. HOUSEKEEPING/LAUNDRY PUMPED RESTARTED. WCTM.
--- NOTE | 2020-01-05 18:18 | NUR ---
PATIENT EXPERIENCED SEVERAL VOMITING EPISODES THIS MORNING, ZOFRAN AND PHENERGAN WERE EFFECTIVE. STEAM AND POWER SUPERVISOR PUMP RAN T/O SHIFT. ANGIO WAS PERFORMED THIS AFTERNOON ON RLE WITH ENTRY THROUGH L. GROIN SITE. NO DISCHARGE NOTED ON L. GROIN SITE, PATIENT STATES GROIN SITES ARE NON-TENDER. NO NEW DRAINAGE NOTED ON R. GROIN SITE FROM PREVIOUS ANGIO. CONSULT WITH ORTHO, POSSIBLE AMPUTATION OF LLE.
[2020-01-06 04:28] LABS: Hemoglobin 13.1 g/dL (11.5-16.0); Mean Corpuscular HGB 27.8 pg (26.0-34.0); Mean Corpuscular HGB Conc 32.8 g/dL (31.5-36.5); Mean Corpuscular Volume 85 fL (80-100); Mean Platelet Volume 9.9 fL (9.1-12.4); Platelet Count 160 K/mm3 (150-400); RDW Coefficient Variation 14.6 % (11.7-14.2); RDW Standard Deviation 45.4 fL (35.1-46.3); Red Blood Cell Count 4.71 M/mm3 (3.80-5.20); White Blood Cell Count 8.65 K/mm3 (4.00-11.30)
[2020-01-06 04:54] LABS: Anion Gap 5 mmol/L (6-16); Blood Urea Nitrogen 10 mg/dL (8-24); Bun/Creatinine Ratio 16.1 (12.0-20.0); CO2, Blood 29 mmol/L (21-32); Calcium, Blood 8.5 mg/dL (8.5-10.1); Chloride, Blood 99 mmol/L (98-108); Creatinine, Blood 0.62 mg/dL (0.40-1.00); Glomerular Filtration Rate >60 (60-); Glucose, Blood 133 mg/dL (70-99); Potassium, Blood 4.4 mmol/L (3.5-5.5); Sodium, Blood 133 mmol/L (136-145)
--- NOTE | 2020-01-06 05:23 | NUR ---
SHIFT SUMMARY PT SLEEPING IN ROOM COMFORTABLY AT THIS TIME. NO ACUTE CHANGES T/O NIGHT. PT HAS SLEPT ON AND OFF DURING SHIFT, OCCASIOALLY MOANS OUT IN PAIN. REPORTS PAIN TO BLE. DILAUDID MACHINE STAPLER PUMP IN PLACE INFUSING AT CONTINUOUS RATE, PT ALSO HAS CONTTROL FOR LOCKOUT RATE. RESP EVEN UNLABORED ON 4L NC D/T DESATING WHILE SLEEPING. W/ NC IN PLACE PT SATS >95%. PT FREQUENTLY TOOK O2 OUT OF NOSE T/O NIGHT, NC WAS PLACED IN MULTIPLE DIFFERENT WAYS TO MAKE PT COMFORTABLE. PT WAS EDUCATED ON NEED FOR O2 TO REMAIN IN PLACE FREQUENTLY. PT REPORTS "IT FALLS OFF". PER PT REQUEST NC WAS TAPED TO CHEEKS TO ASSIST IN KEEPING IN PLACE. TAPE WAS NOTED TO BE PULLED OFF AND THROWN ON GROUND WITH NC TWICE DURING SHIFT. PT CONTINUOUSLY REMINDED TO KEEP O2 IN PLACE. PT WAS MADE NPO AT MIDNIGHT FOR POSSIBLE PROCEDURE THIS AM W/ ORTHO. CALL LIGHT IN REACH.
--- NOTE | 2020-01-06 07:38 | NUR ---
ASSUMED PATIENT CARE. PATIENT RESTING COMFORTABLY IN BED, CONVERSING WITH NURSING STAFF WHEN PROMPTED. NO SIGNS OF ACUTE DISTRESS. ANGIO GROIN SITES NON-TENDER AND NO NEW DISCHARGE NOTED. WCTM.
--- NOTE | 2020-01-06 12:00 | NUR ---
NEW BRUISING NOTED ON PANNUS AND SURROUNDING L. GROIN SITE. NO BRUISING NOTED NEAR L. GROIN SITE ITSELF. PATIENT DENIES PAIN/TENDERNESS IN AREA. WCTM.
--- NOTE | 2020-01-06 16:50 | NUR ---
PATIENT TAKEN TO SURGERY FOR L. FOOT AMPUTATION. FREELANCE DISPLAYER PUMP PAUSED AND DISCONNECTED.
--- NOTE | 2020-01-06 17:52 | NUR ---
PATIENT ON SENIOR SQL SERVER DBA PUMP THIS SHIFT, UTILIZING BOLUS DOSES FOR BREAK THROUGH PAIN CONTROL. DR. PADILLA EVALUATED PATIENT'S LLE THIS MORNING, AGREED WITH DR. BROWN AND DR. WATKINS FOR PLAN TO AMPUTATE LLE BELOW THE KNEE. PATIENT TAKEN TO SURGERY THIS EVENING.
--- NOTE | 2020-01-06 18:38 | NUR ---
01/06/201837 Audrey Linares NO PAS ON DURING SURGERY, JOSEPH OK'D DUE TO PREVIOUS RECENT REVASCULARIZATION SURGERY
--- NOTE | 2020-01-07 00:15 | NUR ---
HIGH BP NOTED ON VITALS DONE BY MANAGER LOGISTIC. PT WAS THRASHING IN BED AT TIME OF VITALS D/T PAIN. WILL REEVALUATE VITALS AFTER PT HAS SETTLED IN AND RESTED.
--- NOTE | 2020-01-07 06:03 | NUR ---
SHIFT SUMARY PT RESTING IN ROOM COMFORTABLY AT THIS TIME. NO ACUTE CHANGES IN STATUS SINCE ARRIVAL FROM PACU. PT HAD L BKA THIS EVENING AND HAS RECOVERED WELL. PT WAS VERY PAINFUL UPON ARRIVAL. WAS MEDICATED FOR PAIN PRIOR TO LEAVING RECOVERY. PT WAS RECONNECTED TO DILAUDID AUTOMATIC MACHINE ATTENDANT UPON RETURNING TO ROOM. STUMP DRESSING IN PLACE C/D/I. STUMP ELEVATED ON PILLOW FOR COMFORT. RESP EVEN UNLABORED ON 2L NC W/ SATS >92%. PT DENIED CP, REPORTED ALL PAIN WAS IN L STUMP. PT VERY AGGITATED AND ANXIOUS AT TIMES IN ROOM. DENIED OTHER NEEDS. CALL LIGHT IN REACH OF PT.
[2020-01-07 08:54] LABS: Hematocrit 42.6 % (33.0-51.0); Hemoglobin 14.3 g/dL (11.5-16.0); Mean Corpuscular HGB 27.5 pg (26.0-34.0); Mean Corpuscular HGB Conc 33.6 g/dL (31.5-36.5); Platelet Count 182 K/mm3 (150-400); RDW Coefficient Variation 14.3 % (11.7-14.2); RDW Standard Deviation 41.7 fL (35.1-46.3)
[2020-01-07 08:55] LABS: Mean Corpuscular Volume 82 fL (80-100)
[2020-01-07 09:12] LABS: Anion Gap 9 mmol/L (6-16); Blood Urea Nitrogen 11 mg/dL (8-24); CO2, Blood 26 mmol/L (21-32); Calcium, Blood 8.8 mg/dL (8.5-10.1); Chloride, Blood 93 mmol/L (98-108); Creatinine, Blood 0.48 mg/dL (0.40-1.00); Glomerular Filtration Rate >60 (60-); Glucose, Blood 256 mg/dL (70-99); Potassium, Blood 4.4 mmol/L (3.5-5.5); Sodium, Blood 128 mmol/L (136-145)
--- NOTE | 2020-01-07 10:10 | NUR ---
PT WORKED W/ OCCUPATIONAL THERAPY EARLIER & WAS ASSISTED OOB TO CHAIR. ENTERED ROOM SHORTLY AFTER & FOUND THAT LEFT STUMP DRESSING & COMPRESSION SOCK WERE COMPLETELY OFF. PT STATES THAT SHE TOOK IF OFF BECAUSE SHE URINATED IN CHAIR & DRESSING WAS "SATURATED" WITH URINE. DR. PADILLA WAS NOTIFIED VIA TELEPHONE; RECEIVED ORDER TO REDRESS WOUND & DISCUSSED THAT HE WOULD BE IN LATER TO SEE PT. SCANT SEROSANGUINOUS DRAINAGE NOTED FROM LEFT BKA SITE, SUTURES INTACT. SURGICAL SITE CLEANSED W/ HYDROGEN PEROXIDE, DRESSED W/ GAUZE, ABD PAD, KERLEX, & COMPRESSION STUMP SOCK; STUMP ELEVATED ON PILLOW. EDUCATED PT ON IMPORTANCE OF KEEPING DRESSING ON & EMPHASIZED NOT TO REMOVE IT. PT VERY FRUSTRATED/EMOTIONAL & STATES "YEAH, YEAH." WILL CONTINUE TO REINFORCE EDUCATION W/ PT.
--- NOTE | 2020-01-07 17:30 | NUR ---
SHIFT SUMMARY/TRANSFER NOTE NO ACUTE CHANGES THROUGHOUT SHIFT SINCE PRIOR NOTE. PT REMAINED AWAKE & ALERT, ANXIOUS/FRUSTRATED ON & OFF DUE TO PAIN, MULTIPLE TUBES/WIRES, & CONDITION; EMOTIONAL SUPPORT RENDERED FREQUENTLY. PT POD #1 LEFT BKA, DRESSING WAS CHANGED ONCE BY THIS RN, THEN AGAIN BY DR. PADILLA; DRESSING TO BE CHANGED EVERY OTHER DAY & PRN; ORTHO SIGNED OFF FOR PT DISCHARGE. PT STILL W/ HTN AT BEGINNING OF SHIFT; SBP CAME DOWN TO BASELINE 150-160S. PT STILL W/ CONSTANT PAIN TO LEFT STUMP; AFTER SCHOOL COUNSELOR REMAINS IN PLACE. PER DR. LEDEZMA PLAN IS TO DISCHARGE PT ONCE PAIN IS BETTER CONTROLLED & PT ABLE TO COME OFF AFTER SCHOOL COUNSELOR PUMP/IV MEDS. PT WAS CHANGED TO SURGICAL STATUS W/ NO TELE. REPORT WAS CALLED TO CHUN BENDER. PT TRANSPORTED OFF UNIT IN STABLE CONDITION TO RM 210. ALL BELONGINGS SENT W/ PT. AFTER SCHOOL COUNSELOR PUMP WAS CLEARED PRIOR TO TRANSFER, VERIFIED W/ CHUN MONTIEL.
--- NOTE | 2020-01-07 17:38 | NUR ---
PT ARRIVED TO UNIT FROM PCU SITTING UP IN BED, DRINKING COFEE. CHORUS DANCER BUTTON IN REACH, PT DEMONSTRATED USE. CALL LIGHT IN REACH. DENIES ANY OTHER NEEDS AT THIS TIME.
--- NOTE | 2020-01-08 04:18 | NUR ---
SHIFT SUMMARY PT IS A/O X4. REPOSITIONS SELF IN BED AND HAS BEEN ASSISTED WITH REPOSITIONING PRN. PAIN MANAGED WITH PO PAIN MEDS AND SEARCH ENGINE OPTIMIZATION CONSULTANT DEMAND BOLUS PRN. PAIN MANAGEMENT HAS BEEN AN ISSUE WHILE PT IS AWAKE; HOSPITALIST WAS CALLED DURING THE SHIFT - FLEXERIL ORDERED & GIVEN. TOLERATING PO INTAKE. USES BEDPAN. ASSISTED WITH ADL'S PRN.
[2020-01-08 05:11] LABS: Anion Gap 8 mmol/L (6-16); Blood Urea Nitrogen 11 mg/dL (8-24); Bun/Creatinine Ratio 18.3 (12.0-20.0); CO2, Blood 27 mmol/L (21-32); Calcium, Blood 8.7 mg/dL (8.5-10.1); Chloride, Blood 95 mmol/L (98-108); Glomerular Filtration Rate >60 (60-); Glucose, Blood 194 mg/dL (70-99); Sodium, Blood 130 mmol/L (136-145)
--- NOTE | 2020-01-08 17:04 | NUR ---
SHIFT SUMMARY PT A&OX4, VSS, CBGS TX'D PER EMAR, BEDREST. POD2 L BKA, SUTURES CLEAN/DRY/INTACT, STUMP SOCK ON, NWB. REPOSITIONS SELF WELL. PAIN MANAGED PER EMAR AND TV HOST. NICOTINE PATCH L SHOULDER. PIPPA PO; LOW PO INTAKE; ENC'D T/O SHIFT. VOIDING USING BEDPAIN. WILL REPORT TO ONCOMING GRIS RN.
--- NOTE | 2020-01-09 03:57 | NUR ---
SHIFT SUMMARY PT A/O X4. NO ACUTE CHANGES OVERNIGHT. PT REPOSITIONS SELF IN BED AND HAS BEEN ASSISTED WITH REPOSITIONING PRN. TOLERATING PO INTAKE AND VOIDING. USES BEDPAN. PAIN MANAGED WITH PO PAIN MEDS AND OCCASIONAL IAP DISPLAYS ANALYST USE PER ORDERS. PT WAS ABLE TO GET REST DURING THE NIGHT. ASSISTED WITH ADL'S PRN.
[2020-01-09 05:11] LABS: BASOPHILS ABSOLUTE AUTO 0.05 K/mm3 (0.00-0.23); BASOPHILS PERCENT AUTO 1 % (0-2); EOSINOPHILS ABSOLUTE AUTO 0.16 K/mm3 (0.00-0.68); EOSINOPHILS PERCENT AUTO 2 % (0-6); Hematocrit 43.2 % (33.0-51.0); Hemoglobin 14.4 g/dL (11.5-16.0); IMMATURE GRAN ABSOLUTE AUTO 0.17 K/mm3 (0.00-0.10); IMMATURE GRAN PERCENT AUTO 2 % (0-1); LYMPHOCYTES ABSOLUTE AUTO 0.73 K/mm3 (0.84-5.20); LYMPHOCYTES PERCENT AUTO 9 % (21-46); MONOCYTES ABSOLUTE AUTO 0.61 K/mm3 (0.16-1.47); MONOCYTES PERCENT AUTO 8 % (4-13); Mean Corpuscular HGB 27.8 pg (26.0-34.0); Mean Corpuscular HGB Conc 33.3 g/dL (31.5-36.5); Mean Corpuscular Volume 83 fL (80-100); Mean Platelet Volume 9.8 fL (9.1-12.4); NEUTROPHILS ABSOLUTE AUTO 6.42 K/mm3 (1.96-9.15); NEUTROPHILS PERCENT AUTO 79 % (41-73); Platelet Count 192 K/mm3 (150-400); RDW Coefficient Variation 14.7 % (11.7-14.2); RDW Standard Deviation 44.4 fL (35.1-46.3); Red Blood Cell Count 5.18 M/mm3 (3.80-5.20); White Blood Cell Count 8.14 K/mm3 (4.00-11.30)
[2020-01-09 05:37] LABS: Anion Gap 5 mmol/L (6-16); Blood Urea Nitrogen 14 mg/dL (8-24); CO2, Blood 32 mmol/L (21-32); Calcium, Blood 9.1 mg/dL (8.5-10.1); Chloride, Blood 93 mmol/L (98-108); Creatinine, Blood 0.87 mg/dL (0.40-1.00); Glomerular Filtration Rate >60 (60-); Glucose, Blood 196 mg/dL (70-99); Potassium, Blood 4.5 mmol/L (3.5-5.5); Sodium, Blood 130 mmol/L (136-145)
--- NOTE | 2020-01-09 16:50 | NUR ---
SHIFT SUMMARY PT A&OX4, VSS, CBGS COVERED PER EMAR, POD2 L BKA, SUTURES & STUMP SOCK CDI, ELEVATED ON PILLOWS, NWB. PAIN MANAGED WITH ORAL PAIN MEDS. PIPPA PO; DENIES N&V. VOIDING WELL ON BEDPAIN. REPOSITIONS SELF WELL. NICOTINE PATCH R SHOULDER. PT'S WHEELCHAIR IN ROOM. WILL REPORT TO ONCOMING GRIS MCCOLLUM.
--- NOTE | 2020-01-10 04:25 | NUR ---
SHIFT SUMMARY PT IS A/O X4. REPOSITIONS SELF WELL IN BED. PAIN MANAGED WITH PO PAIN MEDS PER ORDERS. PT HAS BEEN RESTING QUIETLY WITH EYES CLOSED MOST OF THE NIGHT. NO ACUTE CHANGES OVERNIGHT. ASSISTED WTIH ADL'S PRN.
[2020-01-10] MEDS ORDERED: Prinivil10 MG PO ×2 (10:56)
[2020-01-10] MEDS ORDERED: NICO21TP TD ×2 (10:57)
[2020-01-10] MEDS ORDERED: MIRALAX17 GM PO ×2 (10:58)
[2020-01-10] MEDS ORDERED: OXYC30ER PO ×2 (10:58)
[2020-01-10] MEDS ORDERED: SENN187 PO ×2 (10:59)
[2020-01-10] MEDS ORDERED: OXYC10ER PO ×2 (11:01)
--- NOTE | 2020-01-10 14:35 | NUR ---
DISCHARGE PT DC'D VIA [facility] LIMJONES. REPORT CALLED. SCRIPTS SENT.
== END 2020-01-10 14:30 | disposition home or self-care (01) | DRG 617 ==
LOC: ER 14:53 → MEDS 14:54 → PCU 14:54 → MEDS 14:55 → ER 16:54 → MEDS 18:48 → PCU 01-04 15:51 → SURS 01-07 17:27
PROVIDERS: Emergency Medicine; Hospitalist; Orthopaedic Surgery; ADMIT Internal Medicine
PROC: B41G1ZZ Fluoroscopy of Left Lower Extremity Arteries using Low Osmolar Contrast (ICD-10-PCS; 2020-01-04)
PROC: 0Y6J0Z3 Detachment at Left Lower Leg, Low, Open Approach (ICD-10-PCS; principal; 2020-01-06 17:30)
DX: E11.69 Type 2 diabetes mellitus with other specified complication (principal); M86.9 Osteomyelitis, unspecified; E87.1 Hypo-osmolality and hyponatremia; E11.51 Type 2 diabetes mellitus with diabetic peripheral angiopathy without gangrene; Z79.4 Long term (current) use of insulin; E11.621 Type 2 diabetes mellitus with foot ulcer; L97.522 Non-pressure chronic ulcer of other part of left foot with fat layer exposed; J44.9 Chronic obstructive pulmonary disease, unspecified; Z86.73 Personal history of transient ischemic attack (TIA), and cerebral infarction without residual deficits; I25.10 Atherosclerotic heart disease of native coronary artery without angina pectoris; Z95.5 Presence of coronary angioplasty implant and graft; F17.210 Nicotine dependence, cigarettes, uncomplicated
CPT/HCPCS: 36415; 37224; 37228; 37229; 37232; 37233; 75625; 75710; 75716; 75774; 80048; 80053; 82947; 85025; 85027; 85347; 85610; 85730; 93005; 93010; 94762; 96374; 96375; 96376; 97110; 97162; 97166; 97530; 97535; 99152; 99153; 99284-25; A9270-GY; C1725; C1760; C1769; C1885; C1887; C1894; C2623; G0378; J0360; J1100; J1170; J1644; J1650; J1885; J2060; J2250; J2270; J2370; J2405; J2550; J2704; J2710; J3010; J3370; J7030; J7040; J7120; Q9967

== ENCOUNTER → 2020-01-26 | Outpatient (CLI) | payer OTHER ==
[~2020-01-26] MED LIST changes: +NICO21TP TD; +OXYC10ER PO; +OXYC30ER PO; +SENN187 PO
[2020-01-26 15:54] LABS: Alanine Aminotransfer (ALT/SGP 19 U/L (12-78); Albumin/Globulin Ratio 0.8 (0.8-1.8); Alk Phos 137 U/L (50-136); Anion Gap 6 mmol/L (6-16); Aspartate Aminotrans (AST/SGOT 17 U/L (12-37); Bilirubin, Total 0.4 mg/dL (0.1-1.0); Blood Urea Nitrogen 15 mg/dL (8-24); Bun/Creatinine Ratio 17.1 (12.0-20.0); CO2, Blood 26 mmol/L (21-32); Calcium, Blood 9.1 mg/dL (8.5-10.1); Chloride, Blood 99 mmol/L (98-108); Creatinine, Blood 0.88 mg/dL (0.40-1.00); Globulin, Blood 3.9 g/dL (2.2-4.0); Glomerular Filtration Rate >60 (60-); Glucose, Blood 84 mg/dL (70-99); Potassium, Blood 4.3 mmol/L (3.5-5.5); Sodium, Blood 131 mmol/L (136-145); Total Protein, Blood 6.9 g/dL (6.4-8.2)
== END | disposition home or self-care (01) ==
LOC: EDSTATUS 12:45 → LAB RH 12:47
PROVIDERS: Family Medicine
DX: Z47.89 Encounter for other orthopedic aftercare (principal); E11.9 Type 2 diabetes mellitus without complications; I73.9 Peripheral vascular disease, unspecified
CPT/HCPCS: 80053; 83880

== ENCOUNTER → 2020-02-09 | Outpatient (CLI) | payer OTHER ==
[~2020-02-09] MED LIST changes: +ABAT250V; +BACL10; +EUTHYROX50 MCG PO; +FURO20 PO; +LACT PO; -LEVSOD50 PO; +PERIDEX15 ML MM; +PERIDEX15 ML PO; +ROXICODONE5 MG PO; +VANCOMYCIN1.25 GM/12 IV
[2020-02-09 10:42] LABS: BASOPHILS ABSOLUTE AUTO 0.05 K/mm3 (0.00-0.23); BASOPHILS PERCENT AUTO 1 % (0-2); EOSINOPHILS ABSOLUTE AUTO 0.12 K/mm3 (0.00-0.68); EOSINOPHILS PERCENT AUTO 1 % (0-6); Hematocrit 47.8 % (33.0-51.0); Hemoglobin 15.2 g/dL (11.5-16.0); IMMATURE GRAN PERCENT AUTO 1 % (0-1); LYMPHOCYTES ABSOLUTE AUTO 0.86 K/mm3 (0.84-5.20); LYMPHOCYTES PERCENT AUTO 10 % (21-46); MONOCYTES ABSOLUTE AUTO 0.46 K/mm3 (0.16-1.47); MONOCYTES PERCENT AUTO 5 % (4-13); Mean Corpuscular HGB 26.9 pg (26.0-34.0); Mean Corpuscular HGB Conc 31.8 g/dL (31.5-36.5); Mean Corpuscular Volume 85 fL (80-100); Mean Platelet Volume 10.4 fL (9.1-12.4); NEUTROPHILS ABSOLUTE AUTO 6.88 K/mm3 (1.96-9.15); NEUTROPHILS PERCENT AUTO 81 % (41-73); Platelet Count 252 K/mm3 (150-400); RDW Coefficient Variation 14.6 % (11.7-14.2); RDW Standard Deviation 44.5 fL (35.1-46.3); Red Blood Cell Count 5.65 M/mm3 (3.80-5.20); White Blood Cell Count 8.47 K/mm3 (4.00-11.30)
== END | disposition home or self-care (01) ==
LOC: EDSTATUS 09:46 → LAB RH 10:36
PROVIDERS: Family Medicine
DX: E11.51 Type 2 diabetes mellitus with diabetic peripheral angiopathy without gangrene (principal)
CPT/HCPCS: 85025; 85651; 86140

== ENCOUNTER 2020-02-10 08:40 | Inpatient (IN) | payer OTHER ==
[~2020-02-10] VITALS: Ht 172.7 cm; Wt 94.3 kg
[~2020-02-10 08:40] MED LIST changes: -ABAT250V; -BACL10; -FURO20 PO; -LACT PO; -PERIDEX15 ML MM; -PERIDEX15 ML PO; -ROXICODONE5 MG PO; -VANCOMYCIN1.25 GM/12 IV
[2020-02-10 09:29] LABS: BASOPHILS ABSOLUTE AUTO 0.04 K/mm3 (0.00-0.23); BASOPHILS PERCENT AUTO 0 % (0-2); EOSINOPHILS PERCENT AUTO 1 % (0-6); Hematocrit 47.6 % (33.0-51.0); Hemoglobin 15.2 g/dL (11.5-16.0); IMMATURE GRAN PERCENT AUTO 1 % (0-1); LYMPHOCYTES ABSOLUTE AUTO 1.02 K/mm3 (0.84-5.20); LYMPHOCYTES PERCENT AUTO 11 % (21-46); MONOCYTES ABSOLUTE AUTO 0.53 K/mm3 (0.16-1.47); MONOCYTES PERCENT AUTO 6 % (4-13); Mean Corpuscular HGB 26.7 pg (26.0-34.0); Mean Corpuscular HGB Conc 31.9 g/dL (31.5-36.5); Mean Corpuscular Volume 84 fL (80-100); Mean Platelet Volume 10.1 fL (9.1-12.4); NEUTROPHILS ABSOLUTE AUTO 7.27 K/mm3 (1.96-9.15); NEUTROPHILS PERCENT AUTO 80 % (41-73); Platelet Count 213 K/mm3 (150-400); RDW Coefficient Variation 14.5 % (11.7-14.2); RDW Standard Deviation 43.5 fL (35.1-46.3); Red Blood Cell Count 5.69 M/mm3 (3.80-5.20); White Blood Cell Count 9.06 K/mm3 (4.00-11.30)
[2020-02-10 09:55] LABS: Alanine Aminotransfer (ALT/SGP 26 U/L (12-78); Albumin, Blood 3.2 g/dL (3.4-5.0); Albumin/Globulin Ratio 0.9 (0.8-1.8); Alk Phos 154 U/L (50-136); Anion Gap 5 mmol/L (6-16); Aspartate Aminotrans (AST/SGOT 22 U/L (12-37); Bilirubin, Total 0.3 mg/dL (0.1-1.0); Blood Urea Nitrogen 13 mg/dL (8-24); CO2, Blood 28 mmol/L (21-32); Calcium, Blood 8.9 mg/dL (8.5-10.1); Chloride, Blood 99 mmol/L (98-108); Creatinine, Blood 0.82 mg/dL (0.40-1.00); Globulin, Blood 3.7 g/dL (2.2-4.0); Glomerular Filtration Rate >60 (60-); Glucose, Blood 136 mg/dL (70-99); Potassium, Blood 4.7 mmol/L (3.5-5.5); Sodium, Blood 132 mmol/L (136-145); Total Protein, Blood 6.9 g/dL (6.4-8.2)
[2020-02-10] MEDS ORDERED: PERIDEX15 ML PO (13:26)
[2020-02-10] MEDS ORDERED: ROXICODONE5 MG PO (13:30)
[2020-02-10] MEDS ORDERED: FURO20 PO (13:48)
--- NOTE | 2020-02-10 15:47 | NUR ---
SHIFT SUMMARY PT A&OX4, VSS, DNR BAND L WRIST, CBGS CNI, IV RAC. S/P L BKA X 2 WKS, ADMITTED TODAY FOR CELLULITIS. PLAN: ABX, NPO MIDNIGHT, I&D TOMORROW. REPOSITIONS SELF, TRANSFERS WELL WITH 1 MIN ASSIST, WC BOUND BASELINE. PIPPA PO, DENIES N&V. WILL REPORT TO ONCOMING NOC RN.
--- NOTE | 2020-02-11 02:02 | NUR ---
PT EDUCATION PT EDUCATED ON IMPORTANCE OF ELEVATING BKA ON PILLOW AND RESTING IN BED. SHE WAS ALSO EDUCATED ON FALL PREVENTION R/T SLEEPING IN A DANGLE POSITION. PT STRONGLY ENCOURAGED TO REST IN FOWLERS POSITION WITH ELEVATED BKA. PT REFUSED EDUCATION AND REPOSITIONING, STATING "IM FUCKING COMFORTABLE AND I DONT CARE. I WILL SLEEP IN THIS POSITION IF I FUCKING WANT TO." CHARGE NURSE INFORMED. WILL CONT TO CLOSELY MONITOR AND REINFORCE/EDUCATE FOR REPOSITIONING. PT HAS CALL LIGHT IN REACH.
--- NOTE | 2020-02-11 04:06 | NUR ---
SHIFT SUMMARY ASSUMED CARE OF PT AT 1900. PT IS A/OX4. PT IS IN 7/10 PAIN UPPON EACH ASSESSMENT, PT WRITHES AROUND IN BED AND MOANS AND CURSES. WHEN CHECKING ON THE PT T/O THE NIGHT, PT SLEPT WITH HER FACE AND BODY IN A RELAX POSITION. HEART SOUNDS REGULAR, LUNG SOUNDS DIMINISHED, DENIES CP/SOB AT THIS TIME. PT IS NPO OF MIDINIGHT FOR I&D THIS AM. L BKA WOUND IS RED AND SWOLLEN AND WARM TO TOUCH, CLEAR SCANT DISCHARGE FROM THE WOUND. PT IS A 1P SBA TO COMMODE. PT IS CONTINENT. PT SLEPT MOST OF THE NIGHT. CALL LIGHT IN REACH, BED IN LOWEST POSTION, WILL CONTINUE TO MONITOR UNTIL DAYSHIFT NURSE ARRIVES.
[2020-02-11 04:40] LABS: BASOPHILS ABSOLUTE AUTO 0.03 K/mm3 (0.00-0.23); BASOPHILS PERCENT AUTO 0 % (0-2); EOSINOPHILS ABSOLUTE AUTO 0.21 K/mm3 (0.00-0.68); EOSINOPHILS PERCENT AUTO 3 % (0-6); Hematocrit 37.9 % (33.0-51.0); Hemoglobin 12.2 g/dL (11.5-16.0); IMMATURE GRAN ABSOLUTE AUTO 0.05 K/mm3 (0.00-0.10); IMMATURE GRAN PERCENT AUTO 1 % (0-1); LYMPHOCYTES ABSOLUTE AUTO 0.99 K/mm3 (0.84-5.20); LYMPHOCYTES PERCENT AUTO 14 % (21-46); MONOCYTES PERCENT AUTO 7 % (4-13); Mean Corpuscular HGB 26.8 pg (26.0-34.0); Mean Corpuscular HGB Conc 32.2 g/dL (31.5-36.5); Mean Corpuscular Volume 83 fL (80-100); Mean Platelet Volume 10.5 fL (9.1-12.4); NEUTROPHILS ABSOLUTE AUTO 5.36 K/mm3 (1.96-9.15); NEUTROPHILS PERCENT AUTO 75 % (41-73); Platelet Count 175 K/mm3 (150-400); RDW Coefficient Variation 14.6 % (11.7-14.2); Red Blood Cell Count 4.55 M/mm3 (3.80-5.20); White Blood Cell Count 7.14 K/mm3 (4.00-11.30)
[2020-02-11 04:55] LABS: Anion Gap 7 mmol/L (6-16); Blood Urea Nitrogen 14 mg/dL (8-24); Bun/Creatinine Ratio 17.3 (12.0-20.0); CO2, Blood 28 mmol/L (21-32); Calcium, Blood 8.2 mg/dL (8.5-10.1); Chloride, Blood 101 mmol/L (98-108); Creatinine, Blood 0.81 mg/dL (0.40-1.00); Glomerular Filtration Rate >60 (60-); Glucose, Blood 91 mg/dL (70-99); Potassium, Blood 4.2 mmol/L (3.5-5.5); Sodium, Blood 136 mmol/L (136-145)
--- NOTE | 2020-02-11 15:36 | NUR ---
PATIENT HAS BEEN VERY ANXIOUS AND CRYING THE MAJORITY OF THE SHIFT. SHE IS CONTINUOUSLY COMPLAINING OF PAIN DESPITE PAIN MEDICATIONS GIVEN ATC. PATIENT HAD AN I&D TODAY ON HER L BKA SITE AND RETURNED WITH A WOUND VAC. BP WAS ELEVATED AT RETURN, LIKELY D/T PAIN. CHECKED BP A FEW TIMES TO MONITOR AND IT LOWERED. PATIENT IS NOT CONSOLABLE, INFACT WHEN GIVEN ATTENTION HER MOOD BEGINS TO WORSEN AND THE CRYING INTENSIFIES. PATIENT CONTINUES ON IV ABX WITHOUT S/SX OF ADVERSE REACTIONS NOTED OR REPORTED. WILL CONTINUE TO MONITOR AND PROVIDE CARE NEEDED.
--- NOTE | 2020-02-11 20:35 | NUR ---
WOUND VAC SPOKE WITH DR. SELF R/T BLEEDING AROUND WOUND VAC DRESSING. ORDERS TO REINFORCE DRESSING OBTAINED. WILL IMPLEMENT DRESSING CARE ORDERS.
[2020-02-12 05:16] LABS: BASOPHILS ABSOLUTE AUTO 0.03 K/mm3 (0.00-0.23); BASOPHILS PERCENT AUTO 0 % (0-2); EOSINOPHILS ABSOLUTE AUTO 0.08 K/mm3 (0.00-0.68); EOSINOPHILS PERCENT AUTO 1 % (0-6); Hematocrit 36.3 % (33.0-51.0); Hemoglobin 11.6 g/dL (11.5-16.0); IMMATURE GRAN ABSOLUTE AUTO 0.06 K/mm3 (0.00-0.10); IMMATURE GRAN PERCENT AUTO 1 % (0-1); LYMPHOCYTES ABSOLUTE AUTO 1.02 K/mm3 (0.84-5.20); LYMPHOCYTES PERCENT AUTO 12 % (21-46); MONOCYTES ABSOLUTE AUTO 0.49 K/mm3 (0.16-1.47); MONOCYTES PERCENT AUTO 6 % (4-13); Mean Corpuscular HGB 26.8 pg (26.0-34.0); Mean Corpuscular Volume 84 fL (80-100); Mean Platelet Volume 10.3 fL (9.1-12.4); NEUTROPHILS PERCENT AUTO 80 % (41-73); Platelet Count 193 K/mm3 (150-400); RDW Coefficient Variation 14.4 % (11.7-14.2); Red Blood Cell Count 4.33 M/mm3 (3.80-5.20); White Blood Cell Count 8.38 K/mm3 (4.00-11.30)
[2020-02-12 05:37] LABS: Anion Gap 5 mmol/L (6-16); Blood Urea Nitrogen 16 mg/dL (8-24); Bun/Creatinine Ratio 19.2 (12.0-20.0); CO2, Blood 28 mmol/L (21-32); Calcium, Blood 8.3 mg/dL (8.5-10.1); Chloride, Blood 100 mmol/L (98-108); Creatinine, Blood 0.83 mg/dL (0.40-1.00); Glomerular Filtration Rate >60 (60-); Glucose, Blood 154 mg/dL (70-99); Potassium, Blood 4.5 mmol/L (3.5-5.5); Sodium, Blood 133 mmol/L (136-145)
--- NOTE | 2020-02-12 06:26 | NUR ---
DR. SELF CALLED TO CHECK ON PATIENT. UPDATED PROVIDER ON PT STATUS, ONLY HAVING TO REINFORCE DRESSING 1X DURING SHIFT. NO NEW ORDERS AT THIS TIME.
--- NOTE | 2020-02-12 06:27 | NUR ---
SHIFT SUMMARY POD 1 S/P I&d OF LEFT BKA. PT A/OX4 WITH VSS. PT VERY ANXIOUS, IRRITABLE, AND TEARFUL AT TIMES T/O SHIFT; ZOE THE LONGER STAFF WAS IN ROOM. DR. SELF IN TO SEE PT, SEE PREVIOUS NOTES. DRESSING INFORCED X1 SINCE DRESSING CHANGE AND WOUND VAC REMOVAL WITH DOCTOR AROUND 2300. PT REFUSED TO ELEVATE BKA ON PILLOW AND REST IN BED; INSTISTED ON FREQUENTLY DANGLING ON SIDE OF BED DESPITE CONT EDUCATION AND ENCOURAGEMENT. PT STATES PO MEDICATION PROVIDED POOR PAIN CONTROL, ALTHOUGH PT ABLE TO SLEEP FOR HRS AFTER ADMINISTRATION W/VSS. NEW ORDER OF IV PAIN MED FOR BREAKTHROUGH OBTAINED. ABX AND IVF RUNNING PER ORDERS. PT VOIDING. TOLERATING PO INTAKE, AND DENIES N/V. IS ABLE TO ASSIST WITH REPOSITIONING SELF. APPEARS TO BE CURRENTLY SLEEPING WITH CALL LIGHT IN REACH AND BED IN LOWEST POSITION. WILL CONT TO MONITOR AND GIVE REPORT TO ONCOMING RN.
[2020-02-12 15:43] LABS: Vancomycin, Trough 14.4 ug/mL (5.0-10.0)
--- NOTE | 2020-02-12 17:24 | NUR ---
SHIFT SUMMARY. PT INTERMITTENTLY ANXIOUS AND TEARFUL THROUGHOUT SHIFT. PAIN MANAGED TILL THIS AFTERNOON, PT WAS ASSISTED TO BSC, AFTERWARDS PAIN WAS INTOLERABLE, PT REPORTS IV FENTANYL NOT EFFECTIVE IN TREATING PAIN AFTER FIRST DOSE. DR. DINH NOTIFIED RECIEVED NEW ORDERS FOR IV DILAUDID, PAIN MANAGED WELL POST ADMINISTRATION. PT REFUSED DRESSING CHANGE AFTER FIRST DOSE OF IV DILAUDID GIVEN EVEN THOUGH BLODDY DRAINAGE HAD SOAKED THROUGH POSTERIOR PROXIMAL PORTION OF BANDAGE. PT REQUESTS THAT DRESSING BE CHANGED PRIOR TO NEXT AVAILABLE DOSE OF DILAUDID. SHE REPORTED THAT IF THIS RN WAS TO CHANGE THE DRESSING AFTER THE FIRST DOSE OF IV DILAUDID IT WOULD, "TAKE THE MEDICATION AWAY AND IT WOULD JUST HURT AGAIN." PT CONTIUES WITH IV FLUIDS AND ANTIBIOTICS.
--- NOTE | 2020-02-13 05:27 | NUR ---
DIVISION MANAGER SUMMARY PT STILL VERY EMOTIONAL AND ANXIOUS AT TIMES. COMPLAINS OF PAIN TO L STUMP, MEDICATED WITH OXYCODONE ALONG WITH DILAUDID PER EMAR THROUGH THE NIGHT. DR OLSON IN TO SEE PT AT START OF SHIFT, STATED DRESSING ON L LEG LOOKED GOOD AND THAT HE WOULD CHANGE THE DRESSING LATER TODAY. PT REFUSING TO GET TO BSC SO SHE IS ASSISTED WITH USE OF THE BEDPAN. BARIATRIC BEDPAN USED BY PT REQUEST REGULAR CAVANAUGH IS TOO SMALL. CONTINUED ON IV FLUIDS AND ABX. VSS, WILL CONTINUE TO MONITOR.
--- NOTE | 2020-02-13 18:18 | NUR ---
SHIFT SUMMARY. PT STARTED ON MUSCLE RELAXER THIS MORNING, PAIN MANAGEMENT IMPROVED. PT DENIES N/V, SOB. GOOD MEAL INTAKE. DRAINAGE TO L BKA SURGICAL SITE HAS REDUCED WHEN COMPARED TO YESTERDAY. DRESSINGS CHANGED TO R FOOT, R BUTTOCK, AND R FA NO OTHER CHANGES OR CONCERNS.
--- NOTE | 2020-02-14 04:40 | NUR ---
TOWEL SEWER SUMMARY WOUND VAC REPLACED BY DR OLSON JUST BEFORE START OF SHIFT. PT RECIEVED ADDITIONAL DOSE OF IV DILAUDID 1 MG AFTER DRESSING CHANGE FOR BREAKTHROUGH PAIN. SINCE DRESSING CHANGE, PT PAIN HAS BEEN BETTER MANAGED COMPARED TO YESTERDAY. PT HAS ONLY RECIEVED SCHEDULED 30 MG OXYCONTIN AT HS AND HAS BEEN ABLE TO SLEEP THROUGH MOST OF THE NIGHT. WOUND VAC DRAINING MINIMAL AMOUNTS OF RED FLUID. VSS, WILL CONTINUE TO MONITOR.
--- NOTE | 2020-02-14 17:50 | NUR ---
02/14/20 1750 Thiago Hughes VERIFICATION:CHART STAFF
--- NOTE | 2020-02-14 18:28 | NUR ---
SHIFT SUMMARY. PT CONTINUES WITH CONSTANT PAIN TO L STUMP, PAIN MANAGED WELL WITH CURRENT ORDERS. DR. OLSON REDRESSED WOUND VAC THIS AFTERNOON, DRAINAINGE HAS BEEN MINIMAL. NO N/V, SOB. PT USING SLIDER BOARD WITH ASSIST TO TRANSFER TO PERSONAL W/C. ORDERS PLACED FOR PICC LINE PLACEMENT IN ANTICIPATION FOR D/C TO [facility] POSSIBLY TOMORROW, CN AWARE. NO OTHER CHANGES OR CONCERNS.
[2020-02-14 21:49] LABS: Creatinine, Blood 0.85 mg/dL (0.40-1.00); Vancomycin, Trough 16.2 ug/mL (5.0-10.0)
--- NOTE | 2020-02-15 05:14 | NUR ---
SUPERVISOR HEAVY EQUIPMENT SUMMARY NO ACUTE CHANGES THIS SHIFT. PT AAOX4 AND FAIRLY PLEASANT. STILL EMOTIONAL AT TIMES. MEDICATED FOR PAIN WITH SCHEDULED OXYCONTIN AND ONE DOSE OF OXYCODONE PRN PER EMAR. PT WOUND VAC HAD A LEAK THAT HAD TO BE REINFORCED WITH ADDITIONAL DRAPE. PT REQUESTED IV DILAUDID AFTER FIXING THE WOUND VAC LEAK AREA IS VERY SENSITIVE TO TOUCH. VSS, WILL CONTINUE TO MONITOR.
[2020-02-15 06:09] LABS: Anion Gap 6 mmol/L (6-16); Blood Urea Nitrogen 14 mg/dL (8-24); Bun/Creatinine Ratio 17.9 (12.0-20.0); CO2, Blood 28 mmol/L (21-32); Calcium, Blood 8.4 mg/dL (8.5-10.1); Chloride, Blood 105 mmol/L (98-108); Creatinine, Blood 0.78 mg/dL (0.40-1.00); Glomerular Filtration Rate >60 (60-); Glucose, Blood 145 mg/dL (70-99); Potassium, Blood 4.2 mmol/L (3.5-5.5); Sodium, Blood 139 mmol/L (136-145)
[2020-02-15] MEDS ORDERED: VANCOMYCIN1.25 GM/12 IV (10:11)
[2020-02-15] MEDS ORDERED: LACT PO (10:12)
[2020-02-15] MEDS ORDERED: PERIDEX15 ML MM (10:14)
[2020-02-15] MEDS ORDERED: ABAT250V (10:15)
[2020-02-15] MEDS ORDERED: BACL10 (10:27)
[2020-02-15] MEDS ORDERED: DOCU100 PO ×2 (10:27→10:28)
--- NOTE | 2020-02-15 13:08 | NUR ---
DISCHARGE PATIENT DISCHARGED BACK TO [facility]. DISCHARGE PACKET WITH PATIENT. HARD COPY PRESCRIPTIONS INSIDE. PATIENT TRANSFERED TO WHEELCHAIR TRANSPORT VAN VIA WHEELCHAIR. REPORT CALLED TO RECEIVING NURSE KAREN.
== END 2020-02-15 13:00 | DRG 465 ==
LOC: ER 08:40 → MEDS 08:41
PROVIDERS: Emergency Medicine; Internal Medicine; Orthopaedic Surgery; ADMIT Internal Medicine
PROC: 0QBH0ZZ Excision of Left Tibia, Open Approach (ICD-10-PCS; 2020-02-11)
PROC: 0HXLXZZ Transfer Left Lower Leg Skin, External Approach (ICD-10-PCS; principal; 2020-02-11 10:15)
DX: T87.44 Infection of amputation stump, left lower extremity (principal); E11.22 Type 2 diabetes mellitus with diabetic chronic kidney disease; E11.51 Type 2 diabetes mellitus with diabetic peripheral angiopathy without gangrene; I12.9 Hypertensive chronic kidney disease with stage 1 through stage 4 chronic kidney disease, or unspecified chronic kidney disease; N18.3 Chronic kidney disease, stage 3 (moderate); Z79.4 Long term (current) use of insulin; I25.10 Atherosclerotic heart disease of native coronary artery without angina pectoris; J44.9 Chronic obstructive pulmonary disease, unspecified; G89.4 Chronic pain syndrome; E78.5 Hyperlipidemia, unspecified; F41.8 Other specified anxiety disorders; M79.7 Fibromyalgia; F17.210 Nicotine dependence, cigarettes, uncomplicated
CPT/HCPCS: 36415; 36569; 73701; 80048; 80053; 80202; 82565; 82947; 83605; 85025; 87040; 87070; 87071; 87075; 87077; 87186; 87205; 96374; 96375; 97162; 97165; 97530; 99284-25; A9270-GY; C1751; J0690; J1100; J1170; J1885; J2250; J2405; J2704; J3010; J3370; J7030; J7042; J7050; J7120; Q9967

== ENCOUNTER → 2020-02-10 | Outpatient (CLI) | payer OTHER | END | disposition home or self-care (01) | LOC: LAB 09:54 → LAB SHORT 09:54 | DX: T81.31XA Disruption of external operation (surgical) wound, not elsewhere classified, initial encounter (principal) | CPT/HCPCS: 87070; 87077; 87147; 87186; 87205 ==

== ENCOUNTER → 2020-02-21 | Outpatient (CLI) | payer OTHER ==
[~2020-02-21] MED LIST changes: +ABAT250V; +BACL10; +FURO20 PO; +LACT PO; +PERIDEX15 ML MM; +PERIDEX15 ML PO; +ROXICODONE5 MG PO; +VANCOMYCIN1.25 GM/12 IV
[2020-02-21 22:45] LABS: Vancomycin, Trough 19.3 ug/mL (5.0-10.0)
== END | disposition home or self-care (01) ==
LOC: EDSTATUS 11:58 → LAB RH 22:29
PROVIDERS: Family Medicine
DX: Z51.81 Encounter for therapeutic drug level monitoring (principal); Z79.899 Other long term (current) drug therapy
CPT/HCPCS: 80202

== ENCOUNTER → 2020-02-24 | Outpatient (CLI) | payer OTHER ==
[2020-02-24 10:21] LABS: Anion Gap 4 mmol/L (6-16); Blood Urea Nitrogen 11 mg/dL (8-24); Bun/Creatinine Ratio 14.4 (12.0-20.0); CO2, Blood 29 mmol/L (21-32); Calcium, Blood 8.8 mg/dL (8.5-10.1); Chloride, Blood 102 mmol/L (98-108); Creatinine, Blood 0.76 mg/dL (0.40-1.00); Glomerular Filtration Rate >60 (60-); Glucose, Blood 112 mg/dL (70-99); Potassium, Blood 4.6 mmol/L (3.5-5.5); Sodium, Blood 135 mmol/L (136-145)
[2020-02-24 10:26] LABS: Vancomycin, Trough 25.1 ug/mL (5.0-10.0)
== END | disposition home or self-care (01) ==
LOC: LAB RH 09:12 → EDSTATUS 11:59
PROVIDERS: Family Medicine
DX: Z16.12 Extended spectrum beta lactamase (ESBL) resistance (principal); B95.62 Methicillin resistant Staphylococcus aureus infection as the cause of diseases classified elsewhere
CPT/HCPCS: 80048; 80202

== ENCOUNTER → 2020-03-11 | Outpatient (CLI) | payer OTHER ==
[2020-03-11 12:31] LABS: Anion Gap 9 mmol/L (6-16); Blood Urea Nitrogen 18 mg/dL (8-24); Bun/Creatinine Ratio 27.2 (12.0-20.0); CO2, Blood 23 mmol/L (21-32); Calcium, Blood 8.6 mg/dL (8.5-10.1); Chloride, Blood 103 mmol/L (98-108); Creatinine, Blood 0.66 mg/dL (0.40-1.00); Glomerular Filtration Rate >60 (60-); Glucose, Blood 119 mg/dL (70-99); Potassium, Blood 4.3 mmol/L (3.5-5.5); Sodium, Blood 135 mmol/L (136-145); Vancomycin, Trough 18.7 ug/mL (5.0-10.0)
== END | disposition home or self-care (01) ==
LOC: OLS 08:34 → LAB SHORT 08:34
PROVIDERS: Family Medicine
DX: L03.90 Cellulitis, unspecified (principal); B95.62 Methicillin resistant Staphylococcus aureus infection as the cause of diseases classified elsewhere; Z16.12 Extended spectrum beta lactamase (ESBL) resistance
CPT/HCPCS: 80048; 80202

== ENCOUNTER → 2020-03-15 | Outpatient (CLI) | payer OTHER | END | disposition home or self-care (01) | LOC: EDSTATUS 11:04 → LAB RH 19:40 | DX: T87.44 Infection of amputation stump, left lower extremity (principal) | CPT/HCPCS: 86140 ==

== ENCOUNTER → 2020-03-16 | Outpatient (CLI) | payer OTHER | END | disposition home or self-care (01) | LOC: EDSTATUS 11:12 → LAB RH 23:00 | DX: L03.90 Cellulitis, unspecified (principal) | CPT/HCPCS: 85651 ==

== ENCOUNTER → 2020-03-20 | Outpatient (CLI) | payer OTHER ==
[2020-03-20 09:25] LABS: Anion Gap 8 mmol/L (6-16); Blood Urea Nitrogen 16 mg/dL (8-24); Bun/Creatinine Ratio 22.4 (12.0-20.0); CO2, Blood 23 mmol/L (21-32); Calcium, Blood 8.7 mg/dL (8.5-10.1); Chloride, Blood 103 mmol/L (98-108); Creatinine, Blood 0.72 mg/dL (0.40-1.00); Glomerular Filtration Rate >60 (60-); Glucose, Blood 131 mg/dL (70-99); Potassium, Blood 4.5 mmol/L (3.5-5.5); Sodium, Blood 134 mmol/L (136-145)
[2020-03-20 09:28] LABS: Vancomycin, Trough 20.6 ug/mL (5.0-10.0)
== END | disposition home or self-care (01) ==
LOC: LAB RH 07:59 → EDSTATUS 11:13
PROVIDERS: Internal Medicine Infectious Disease
DX: Z16.12 Extended spectrum beta lactamase (ESBL) resistance (principal); B95.62 Methicillin resistant Staphylococcus aureus infection as the cause of diseases classified elsewhere
CPT/HCPCS: 80048; 80202

== ENCOUNTER → 2020-03-23 | Outpatient (CLI) | payer OTHER ==
[2020-03-23 10:26] LABS: Anion Gap 7 mmol/L (6-16); Blood Urea Nitrogen 15 mg/dL (8-24); Bun/Creatinine Ratio 22.7 (12.0-20.0); CO2, Blood 25 mmol/L (21-32); Chloride, Blood 102 mmol/L (98-108); Creatinine, Blood 0.66 mg/dL (0.40-1.00); Glomerular Filtration Rate >60 (60-); Glucose, Blood 176 mg/dL (70-99); Potassium, Blood 4.3 mmol/L (3.5-5.5); Sodium, Blood 134 mmol/L (136-145)
== END | disposition home or self-care (01) ==
LOC: LAB RH 08:54 → EDSTATUS 11:14
PROVIDERS: Internal Medicine Infectious Disease
DX: Z16.12 Extended spectrum beta lactamase (ESBL) resistance (principal); B95.62 Methicillin resistant Staphylococcus aureus infection as the cause of diseases classified elsewhere
CPT/HCPCS: 80048; 80202

== ENCOUNTER 2020-07-02 18:35 | Inpatient (IN) | payer OTHER ==
[~2020-07-02] VITALS: Ht 172.7 cm; Wt 94.8 kg
[~2020-07-02 18:35] MED LIST changes: -BACL10; +BACL10 PO; -NOVOLOG FL100 UNIT/1 SC; +NOVOLOG FL100 UNIT/3 SC
[2020-07-02 19:27] LABS: BASOPHILS ABSOLUTE AUTO 0.04 K/mm3 (0.00-0.23); BASOPHILS PERCENT AUTO 0 % (0-2); EOSINOPHILS ABSOLUTE AUTO 0.08 K/mm3 (0.00-0.68); EOSINOPHILS PERCENT AUTO 1 % (0-6); Hematocrit 50.6 % (33.0-51.0); Hemoglobin 16.5 g/dL (11.5-16.0); IMMATURE GRAN ABSOLUTE AUTO 0.18 K/mm3 (0.00-0.10); IMMATURE GRAN PERCENT AUTO 2 % (0-1); LYMPHOCYTES ABSOLUTE AUTO 1.37 K/mm3 (0.84-5.20); LYMPHOCYTES PERCENT AUTO 12 % (21-46); MONOCYTES ABSOLUTE AUTO 0.52 K/mm3 (0.16-1.47); MONOCYTES PERCENT AUTO 5 % (4-13); Mean Corpuscular HGB 25.3 pg (26.0-34.0); Mean Corpuscular HGB Conc 32.6 g/dL (31.5-36.5); Mean Corpuscular Volume 78 fL (80-100); Mean Platelet Volume 10.2 fL (9.1-12.4); NEUTROPHILS ABSOLUTE AUTO 9.36 K/mm3 (1.96-9.15); NEUTROPHILS PERCENT AUTO 81 % (41-73); Platelet Count 145 K/mm3 (150-400); RDW Standard Deviation 41.9 fL (35.1-46.3); Red Blood Cell Count 6.53 M/mm3 (3.80-5.20); White Blood Cell Count 11.55 K/mm3 (4.00-11.30)
[2020-07-02] MEDS ORDERED: MORP15ER PO (19:39)
[2020-07-02] MEDS ORDERED: MORP30ER PO (19:39)
[2020-07-02] MEDS ORDERED: OXYC10TA19 PO (19:39)
[2020-07-02 19:49] LABS: Anion Gap 9 mmol/L (6-16); Blood Urea Nitrogen 10 mg/dL (8-24); Bun/Creatinine Ratio 20.2 (12.0-20.0); CO2, Blood 26 mmol/L (21-32); Chloride, Blood 99 mmol/L (98-108); Ethanol (Alcohol), Blood, Med <3 mg/dL; Glomerular Filtration Rate >60 (60-); Glucose, Blood 86 mg/dL (70-99); Potassium, Blood 2.7 mmol/L (3.5-5.5); Salicylate 6.2 mg/dL (2.8-20.0); Sodium, Blood 134 mmol/L (136-145)
[2020-07-02 19:50] LABS: Alanine Aminotransfer (ALT/SGP 25 U/L (12-78); Albumin, Blood 3.3 g/dL (3.4-5.0); Albumin/Globulin Ratio 0.6 (0.8-1.8); Alk Phos 176 U/L (50-136); Aspartate Aminotrans (AST/SGOT 26 U/L (12-37); Bilirubin, Total 0.4 mg/dL (0.1-1.0); Globulin, Blood 5.1 g/dL (2.2-4.0); Total Protein, Blood 8.4 g/dL (6.4-8.2)
[2020-07-02 19:53] LABS: Acetaminophen, Random <2.0 ug/mL (10.0-30.0)
[2020-07-02 23:09] LABS: Source, Urine Catheter
[2020-07-02 23:15] LABS: Bilirubin, Urine Neg (Neg); Blood, Urine 1+ (Neg); Glucose Qualitative, Urine Neg (Neg); Ketones, Urine Neg (Neg); Leukocyte Esterase, Urine 1+ (Neg); Nitrite, Urine Neg (Neg); Protein, Urine Neg (Neg); Specific Gravity, Urine 1.005 (1.003-1.022); Urobilinogen, Urine NORM (Normal)
[2020-07-02 23:16] LABS: Appearance, Urine Clear (Clear); Color, Urine Yellow (P-Yellow)
[2020-07-02 23:22] LABS: Bacteria Mod /hpf; Red Blood Cells, Urine 0-2 /hpf (0-2); Squamous Epithelial Cells Few /hpf (Few); White Blood Cells, Urine 0-2 /hpf (0-5)
[2020-07-02 23:25] LABS: U Amphetamine Screen Not Detected; U Barbituate Screen Not Detected; U Benzodiazapine Screen Not Detected; U Buprenorphine Screen Not Detected; U Cannabinoids Screen Not Detected; U Cocaine Screen Not Detected; U Methadone Screen Not Detected; U Methamphetamine Screen Not Detected; U Opiates Screen Not Detected; U Oxycodone Screen Not Detected; U Phencyclidine Screen Not Detected; U Propoxyphene Screen Not Detected
--- NOTE | 2020-07-03 | NUR ---
INITAL SHIFT ASSESSMENT PT ARRIVED TO ICU VIA GURNEY. PT WAS SLID OVER TO ICU BED WITH NO ISSUES. SHE DID MOAN AND REQUESTED TO NOT BE MOVED ABOUT SO MUCH BECAUSE EVERYTHING HURTS. PT WAS GIVEN THE BED CAVANAUGH PER REQUEST AND WAS ABLE TO URINATE 500CC OF CLEAR YELLOW URINE. PT HAD PICTURES OF ALL HER WOUNDS TAKEN AND PLACED IN CHART. FOAM DRESSING WAS APPLIED TO COCCYX WOUND. PT WAS ABLE TO HELP WITH TURNS WITH HER ARMS, BUT HER LEGS ARE PAINFUL AND WEAK SHE STATES. PT IS ON RA WITH NO S/S OF RESPIRATORY DISTRESS UNLESS SHE IS TURNING AND MOVING ABOUT IN BED. PT IS ALERT AND ORIENTED SOMETIMES SLOW TO ANSWER THIS RN'S QUESTIONS. PT WAS GIVEN PAIN MEDS AND WILL HAVE WOUND VAC DRESSING RE APPLIED BY THIS RN LATER IN SHIFT. D10 IS RUNNING ORDERED AT 125ML/HR. BLOOD SUGAR WAS CHECKED UPON PT'S ARRIVAL AND WNL. WILL CON'T TO CHECK BLOOD SUGARS T/O SHIFT. PT HAS TWO PERIPHERAL IV'S BOTH ARE PATENT AND CDI DRESSINGS. PT DOES HAVE SOME YEAST IN HER PANNUS FOLDS. CLEANED AND BABY POWDER APPLIED. PT HAS WOUNDS TO HER RIGHT FOOT/ ALL TOES MISSING. PT REFUSING TO HAVE DRESSINGS APPLIED TO RIGHT FOOT. PT OVERALL APPEARS TO HAVE VERY MINIMAL COPING SKILLS. SHE STATES SHE STILL WANTS TO HURT HERSELF. DISCUSSED WITH PT HER BEING A FULL CODE AND SHE STATES SHE HAS A POLST ON FILE AND WANTS TO BE A DNR. FOUND PT'S POLST AND REVIEWED WITH DR LOPEZ AND IT WAS DECIDED TO MAKE HER A DRN PER HER WISHES. PT STATES SHE IS UNABLE TO GIVE AN ACCURATE MEDICATION HISTORY AND THUS HER CAREGIVER ILL BE CALLED TO CONFIRM MEDS TOMORROW. CALL LIGHT REVIEWED WITH PT AND WITHIN REACH. WILL CON'T TO MONITOR AND KEEP PT SAFE.
--- NOTE | 2020-07-03 02:26 | NUR ---
SHIFT UPDATE THIS RN PLACED WOUND VAC AND THE PT CRIED OUT IN PAIN AND WAS SCREAMING THAT IT HURTS TO BAD. SHE WAS STATING THAT THIS IS WHY SHE WANTED TO KILL HERSELF IN THE FIRST PLACE BC OF THE WOUND VAC. WOUND VAC WAS REMOVED AND EVEN THE DRESSING PT WAS UNABLE TO TOLERATE. THIS RN PLACED A FOAM DRESSING LIGHTLY OVER PT'S LEFT BKA STUMP. PT STATES SHE CAN TOLERATE THIS. BLOOD SUGARS CON'T TO BE STABLE AT THIS TIME. PT WAS ALSO GIVEN SOME YOGURT PER HER REQUEST BC SHE WAS HUNGRY. WILL CON'T TO MONITOR AND KEEP PT SAFE.
[2020-07-03 03:30] LABS: Anion Gap 7 mmol/L (6-16); Blood Urea Nitrogen 7 mg/dL (8-24); Bun/Creatinine Ratio 13.9 (12.0-20.0); CO2, Blood 26 mmol/L (21-32); Calcium, Blood 8.3 mg/dL (8.5-10.1); Chloride, Blood 100 mmol/L (98-108); Glomerular Filtration Rate >60 (60-); Glucose, Blood 99 mg/dL (70-99); Potassium, Blood 3.1 mmol/L (3.5-5.5); Sodium, Blood 133 mmol/L (136-145)
--- NOTE | 2020-07-03 05:43 | NUR ---
SHIFT SUMMARY PT CON'T TO BE STABLE WITH NO CHANGES FROM BASELINE. SHE HAS RESTED WELL T/O SHIFT WITH THE AIDE OF PAIN MEDS AND HELPING HER POSISTION HERSELF TO BE COMFORTABLE. SHE DOES HAVE A FAIR AMOUNT OF PAIN TO HER STUMP. STATING THAT IT HURTS SO BAD SHE JUST WANTS TO . PT IS ABLE TO USE BED CAVANAUGH WITH NO ISSUES. SHE IS ABLE TO ROLL HERSELF IN BED WITH NO ISSUES. PT CON'T TO HAVE BLOOD SUGARS CHECKED. SHE CON'T TO HAVE D10 RUNNING ORDERED AT 125ML/HR. PT IS RESTING AT THIS TIME WITH CALL LIGHT IN LAP. WILL CON'T TO MONITOR AND KEEP PT SAFE TILL REPORT TO ONCOMING RN.
--- NOTE | 2020-07-03 08:37 | NUR ---
BEDSIDE REPORT TAKEN AT 0700. PT AWAKE AND WHIMPERING,CRYING. PT C/O SEVERAL IDEMS INCLUDING PAIN TO LEFT STUMP AND COCCYX. PT STATES PAIN IS 9/10. MS CONTIN GIVEN. PT WHEELCHAIR BOUND AT HOME AND RELIES ON CARE GIVEN. PT C/O GROIN/RASH HURTING WORSE AFTER AREA WAS CLEANED. AREA'S UNDER FOLDS ARE RED AND YEASTY, NYSTATIN POWER MAY BE HELPFUL. PT IS IRRITABLE AND SOMEWHAT PASSIVE AGGRESSIVE. PT REFUSES TO WEAR ORDERED WOUNDVAC SHE STATES IT CAUSES INTOLERABLE PAIN. MEPILEX AND COBAN TO STUMP END. D10 AT 125CC/HR, BS TRENDING UP AND PT ATE 100% OF MEAL. PT INSIST ON EATING NON ADA DIET W REGULAR SUGAR. PT IS ALSO AN EVERYDAY SMOKER. HOSPITALIST WILL CALL REGARDING D10 RATE BS'S ARE INCREASING AND PT IS EATING REG DIET. PT'S SKIN IS FLUSHED AND SLIGHTLY DIAPHORETIC BUT VSS REMAIN SATBLE. PT IS AWARE THAT HER ORTHO DR HAS RECOMMENDING TAKING HER BKA HIGHER TO REMOVE INFECTED BONE AND MAY BE STARTING TO BE OPEN TO THE IDEA D/T THE SEVERE AMT OF PAIN SHE IS EXPERIENCING. PT STATES SHE TOOK MORE THAN PRESCRIBED AMT OF PAIN MEDS AT HOME D/T SEVERE PAIN. PT STATES SHE WOULD NOT ATTEMPT SUICIDE IF HER PAIN WAS UNDE CONTROL. SHE IS UNAWARE OF WHAT TYPE OF INSULIN SHE OVERDOSED ON. SHE CALLED THE EMS BECAUSE SHE EXPECTED TO FAST AND BECAME FEARFUL WHEN SHE DID NOT BUT RATHER EXPERIENCED UNCOMFORTABLE/FEARFUL SYMPTOMS; WEAKNESS, DIZZINESS. SHE THOUGHT THAT THE INSULIN OVERDOSE WOULD CAUSE HER TO QUICKLY. AND PAINLESSLY.
--- NOTE | 2020-07-03 09:07 | NUR ---
DR MOSES CALLED AND GIVEN UPDATE; D10 DC'D, WILL CONT TO MONITOR BS CLOSELY. PT ON BEDPAN UNABLE TO VOID; WILL CHECK W BLADDER SCAN.
--- NOTE | 2020-07-03 09:42 | NUR ---
PT C/O TO CRY/WHIMPER. REPOSITIONED X 4 FROM 0700 THIS AM. ABLE TO VOID TO BEDPAN. D10 DC'D. MS CONTIN 45MG AND OXY 10MG GIVEN. PT SATES SHE HAD BEEN TAKING 20-30MG OF OXY FOR PAIN AT HOME AND THAT IS WHY SHE RAN OUT EARLY. PT STATES SHE WOULD LIKE TO HAVE THE SURGERY FOR HER INFECTED STUMP NOW.
--- NOTE | 2020-07-03 10:41 | NUR ---
Safety Plan interview attempted. Pt weeping and stated "in pain" Refused at this time
--- NOTE | 2020-07-03 10:43 | NUR ---
DR MOSES CALLED R/G PT'S C/O UNCONTROLLED PAIN. PT'S HOME NEURONTIN TO BE RESTARTED. ONE TIME DOSE OF TORADOL ORDERED.
--- NOTE | 2020-07-03 11:05 | NUR ---
TORADOL AND NEURONTIN GIVEN. DR MOSES AT BEDSIDE. DRSG TO STUMP REMOVED; ORTHO CONSULT FOR POTENTIAL AKA TO BE MADE. PLATER APPRENTICE TO BE ORDERED WELL FOR PAIN MANAGMENT.
--- NOTE | 2020-07-03 12:33 | NUR ---
DILAUDID BUSINESS CONSULT STARTED FOR PT W 2MG LOADING DOSE; 4MG LOADING DOSE ORDERED; THIS DISCUSED W DR MOSES; OKAY TO START WITH 2MG LOADING DOSE. VANCO STARTED. PT MORE CALM AND QUIET WHEN LEFT ALONE IN ROOM (1:1) WATCHING AT ALL TIMES. WHEN AT BEDSIDE PT MORE RESTLESS AND VOCAL(MOANING, CRYING) WHEN OUT OF ROOM WATCHIMG PT, PT MORE QUITE CALM AND WATCHING TV. PT REPOSITIONED EVERY HR FOR COMFORT.
--- NOTE | 2020-07-03 13:25 | NUR ---
DR PADILLA IN TO SEE PT. DRSG TO RIGHT STUMP CHANGED BY MD Dunham ABD PAD AND PHILL WRAP. STUMP HAS BEEN ELEVATED ON PILLOWS T/O SHIFT. PT NPO AFTER MD FOR Yessica ASHBY TOMORROW. LOVENOX AND PLAVIX TO BE HELD. PT STATES PAIN IS NOW 7/10; APPEARS MUCH MORE COMFORTABLE IN BED. PT ABLE TO EAT LUNCH AND IS ACTIVELY WATCHING TV.
--- NOTE | 2020-07-03 13:49 | NUR ---
Safety Plan interview attempted 2nd time. Pt nurse present. Pt attention was on poistioning in bed and out of breath. Checked with nurse to come back another time. Nurse agree. Pt just received new pain meds Ana Bone M.Ed., HP-C
--- NOTE | 2020-07-03 16:24 | NUR ---
DR CRUZ IN TO EVALUATE PT. HOSP MD HOLD DROPPED, PT CHANGED TO MODERATE PRECAUTIONS. DR MOSES UPDATED BY DR CRUZ
--- NOTE | 2020-07-03 17:18 | NUR ---
UPDATE GIVEN TO DR MOSES. PT NOW SURGICAL FLOOR STATUS W TELE AND CONT PULSE OX. NOVOLOG AND LANTUS ORDERED. BLUEPRINT REPRODUCER APPEARS TO BE WORKING WELL FOR PAIN CONTROL. PT CALM, NO LONGER RESTLESS IN BED.
--- NOTE | 2020-07-03 20:00 | NUR ---
ASSUMED CARE: A&O. COOPERATIVE. MAIN COMPLAINT IS PAIN BUT THAT IS BEING WELL MANAGED WITH DILAUDID PUBLIC POLICY MANAGER. LUNG SOUNDS ARE CLEAR ON RA. IN SR. HR IN THE 80S. PT WILL BE NPO AFTER MIDNIGHT FOR AKA SURG IN AM. OTHERWISE, SHE IS ON ADA DIET. PT USES BEDPAN FOR VOIDS. PT HAS MULTIPLE SKIN ISSUES. R FOOT IS MISSING THE MAJORITY OF TOES. PT CURRENTLY HAS A BKA TO L LEG, BUT IS GOING FOR AN AKA IN THE AM. 18G TO ODIN-SL. 20G IN LAC. PT HAS DILAUDID PUBLIC POLICY MANAGER INFUSING-RATE IS 0.5MG/HR WITH 1MG Q 30MIN WITH A MAX OF 10MG Q 4. WILL CONTINUE TO MONITOR
[2020-07-04 03:46] LABS: BASOPHILS ABSOLUTE AUTO 0.06 K/mm3 (0.00-0.23); BASOPHILS PERCENT AUTO 1 % (0-2); EOSINOPHILS ABSOLUTE AUTO 0.38 K/mm3 (0.00-0.68); EOSINOPHILS PERCENT AUTO 3 % (0-6); Hematocrit 40.3 % (33.0-51.0); Hemoglobin 12.9 g/dL (11.5-16.0); IMMATURE GRAN ABSOLUTE AUTO 0.09 K/mm3 (0.00-0.10); IMMATURE GRAN PERCENT AUTO 1 % (0-1); LYMPHOCYTES ABSOLUTE AUTO 1.59 K/mm3 (0.84-5.20); LYMPHOCYTES PERCENT AUTO 12 % (21-46); MONOCYTES PERCENT AUTO 6 % (4-13); Mean Corpuscular HGB 24.7 pg (26.0-34.0); Mean Corpuscular Volume 77 fL (80-100); Mean Platelet Volume 11.5 fL (9.1-12.4); NEUTROPHILS ABSOLUTE AUTO 10.29 K/mm3 (1.96-9.15); NEUTROPHILS PERCENT AUTO 78 % (41-73); Platelet Count 126 K/mm3 (150-400); RDW Coefficient Variation 15.7 % (11.7-14.2); RDW Standard Deviation 43.2 fL (35.1-46.3); Red Blood Cell Count 5.22 M/mm3 (3.80-5.20); White Blood Cell Count 13.21 K/mm3 (4.00-11.30)
[2020-07-04 04:25] LABS: Bun/Creatinine Ratio 15.5 (12.0-20.0); Calcium, Blood 8.2 mg/dL (8.5-10.1); Creatinine, Blood 1.16 mg/dL (0.40-1.00); Potassium, Blood 5.6 mmol/L (3.5-5.5)
--- NOTE | 2020-07-04 06:32 | NUR ---
SHIFT SUMMARY: NO ACUTE CHANGES. VSS. GLUCOSE THIS AM IS 161. SHE ATE 100% OF DINNER. ON RA. LUNG SOUNDS ARE CLEAR. USES BED CAVANAUGH AND HELPS WITH TURNS. IN SR. 20G IN ODIN, 20G IN LFA. IS HAVING AKA IN THE AM. HOLD LOVENOX. POTASSIUM THIS AM 5.6. HAS BEEN NPO SINCE MIDNIGHT EXCEPT FOR SIPS OF WATER TO KEEP HER MOUTH MOIST. DRESSING ON COCCXY CHANGED. WEB PAGE DESIGNER PUMP WITH DILAUDID STILL IN PLACE
--- NOTE | 2020-07-04 08:40 | NUR ---
INITIAL ASSESSMENT PATIENT ALERT AND ORIENTED X 4, AFEBRILE. PATIENT ANXIOUS AT TIMES. PATIENT DENYING SI. PATIENT REPORTS N/T TO EXTREMTIES; PATIENT STATES THIS IS NORMAL FOR HER. PATIENT WEAK; DIFFICULTY WITH LOWER EXTREMITIES; INFECTED L BKA. PATIENT BEING ASSISTED WITH BEDPAN. PATIENT REPORTS PAIN IN L STUMP. PATIENT ON DILAUDID SKEIN DYER PUMP TO HELP WITH PAIN. PATIENT SATTING 90% AND GREATER ON RA. PATIENT IN SR, HR 80S TO 90S. BP STABLE. GI WNL. WNL. R FOOT ULCER NOTED. COCCYX WOUND NOTED. RASH TO GROINS. SCABS TO NOSE AND ARMS. WOUND TO L STUMP. BRUISES TO BUES. NS TKO. BED LOW, CALL LIGHT IN REACH. WILL CONTINUE TO MONITOR PATIENT FREQUENTLY THROUGHOUT SHIFT.
--- NOTE | 2020-07-04 08:57 | NUR ---
DR. MOSES HERE TO SEE PATIENT. DOCTOR INFORMED OF AM SODIUM OF 124, POTASSIUM OF 5.6, INCREASING WBCS. DOCTOR STATES HE WILL PLACE ORDERS.
--- NOTE | 2020-07-04 11:50 | NUR ---
PATIENT TAKEN FOR AKA PROCEDURE.
--- NOTE | 2020-07-04 12:10 | NUR ---
History, Chart, Medications and Allergies reviewed before start of procedure.Patient confirms NPO status and agrees with scheduled surgery. Pre-Op teaching done. Pt verbalizes understanding. Lungs clear T/O to Auscultation.
--- NOTE | 2020-07-04 13:06 | NUR ---
PATIENT'S GLASSES WERE BROKEN UPON ARRIVAL TO D/S.
--- NOTE | 2020-07-04 14:20 | NUR ---
LEFT MESSAGE AT CONSULT LINE FOR DR. SWANSON. GAVE MESSAGE TO DR. PADILLA'S OFFICE TO INFORM HIM THAT DR. SWANSON WILL NOT BE AVAILABLE UNTIL THE .
--- NOTE | 2020-07-04 16:33 | NUR ---
CONFIRMED WITH DR. MOSES THAT HE WANTED TO CONTINUE DILAUDID TREE TAPPING LABORER PUMP. STATED TO BEGIN AGAIN WITHOUT LOADING DOSE. TREE TAPPING LABORER RESTARTED.
--- NOTE | 2020-07-04 17:11 | NUR ---
PATIENT ARRIVED BACK TO UNIT FROM OR AT 1550. SLEEVE IN PLACE TO LEFT AKA; CLEAN, DRY AND INTACT.
--- NOTE | 2020-07-04 18:00 | NUR ---
SHIFT SUMMARY PATIENT REMAINED ALERT AND ORIENTED X 4, AFEBRILE. PATIENT CONTINUED TO HAVE COMPLAINTS OF PAIN IN L STUMP. DILAUDID PUMP HAS BEEN HELPING QUITE A BIT WITH THAT PAIN. PATIENT CONTINUES TO DENY SI TODAY. PATIENT HAS REMAINED SATTING 90% AND GREATER ON RA. CONTINUOUS PULSE OXIMETRY IN PLACE. PATIENT HAS REMAINED IN SR TO ST, HR 80S TO LOW 100S. HR MOSTLY OVER 100 WITH AGITATION/ PAIN/ ANXIETY. BP REMAINED STABLE. PATIENT DID NOT HAVE BM THIS SHIFT. PATIENT NPO UNTIL LEFT BKA TO AKA PROCEDURE. PATIENT EATING DINNER AT THIS TIME WITHOUT DIFFICULTY. WNL; GOOD URINE OUTPUT THIS SHIFT. SLEEVE TO LEFT AKA; CLEAN, DRY AND INTACT. NYSTATIN ORDERED THIS SHIFT FOR REDDENED GROIN FOLDS. NO OTHER CHANGES TO SKIN. PATIENT SHIFTING OWN HIPS IN BED; DID NEED NURSE ASSISTANCE OCCASIONALLY. NS INFUSING AT 100 MLS/ HOUR. NEW ANTIBIOTICS ORDERED THIS SHIFT. PATIENT POSITIVE FOR VRE IN URINE. BLOOD SUGARS 177, 152, 160. BED LOW, CALL LIGHT IN REACH. NO COMPLAINTS AT THIS TIME. WILL CONTINUE TO MONITOR.
--- NOTE | 2020-07-04 19:00 | NUR ---
ASSUMED CARE ASSUMED CARE OF PATIENT. AWAKE AND ALERT. ORIENTED AND COOPERATIVE. PT IS IRRITABLE AT TIMES AND OCCASIONALLY CRIES FROM PAIN. DISCUSSED USE OF INFORMATICS DEVELOPER AND PT DOES STATE THAT THE INFORMATICS DEVELOPER IS HELPING. OCCASIONAL PERIODS OF ANXIOUSNESS, BUT CALMS WITH REASSURANCE. DENIES DESIRE/INTENT TO HARM HERSELF OR OTHERS. ASSISTS WITH REPOSITIONING IN BED. ENCOURAGED FREQUENT REPOSITIONING. LEFT AKA NOTED- DRSG C/D/I. VSS. RA SATS 99-100%. RESPIRATIONS EVEN AND UNLABORED. NS INFUSING @ 100CC/HR PER ORDER. REMAINS IN CONTACT ISOLATION PER ORDER. SEE SHIFT ASSESSMENT FOR FULL ASSESSMENT.
[2020-07-05 03:48] LABS: BASOPHILS ABSOLUTE AUTO 0.03 K/mm3 (0.00-0.23); BASOPHILS PERCENT AUTO 0 % (0-2); EOSINOPHILS ABSOLUTE AUTO 0.19 K/mm3 (0.00-0.68); EOSINOPHILS PERCENT AUTO 2 % (0-6); Hematocrit 37.7 % (33.0-51.0); Hemoglobin 12.1 g/dL (11.5-16.0); IMMATURE GRAN ABSOLUTE AUTO 0.07 K/mm3 (0.00-0.10); IMMATURE GRAN PERCENT AUTO 1 % (0-1); LYMPHOCYTES ABSOLUTE AUTO 0.72 K/mm3 (0.84-5.20); LYMPHOCYTES PERCENT AUTO 7 % (21-46); MONOCYTES ABSOLUTE AUTO 0.43 K/mm3 (0.16-1.47); MONOCYTES PERCENT AUTO 4 % (4-13); Mean Corpuscular HGB 25.1 pg (26.0-34.0); Mean Corpuscular HGB Conc 32.1 g/dL (31.5-36.5); Mean Corpuscular Volume 78 fL (80-100); Mean Platelet Volume 11.9 fL (9.1-12.4); NEUTROPHILS ABSOLUTE AUTO 9.28 K/mm3 (1.96-9.15); NEUTROPHILS PERCENT AUTO 87 % (41-73); Platelet Count 173 K/mm3 (150-400); RDW Coefficient Variation 15.7 % (11.7-14.2); RDW Standard Deviation 44.3 fL (35.1-46.3); Red Blood Cell Count 4.82 M/mm3 (3.80-5.20); White Blood Cell Count 10.72 K/mm3 (4.00-11.30)
[2020-07-05 04:00] LABS: International Normalized Ratio 0.96; Prothrombin Time Results 10.3 Sec (9.7-11.5)
[2020-07-05 04:03] LABS: Alanine Aminotransfer (ALT/SGP 17 U/L (12-78); Albumin, Blood 2.5 g/dL (3.4-5.0); Albumin/Globulin Ratio 0.7 (0.8-1.8); Alk Phos 135 U/L (50-136); Anion Gap 4 mmol/L (6-16); Aspartate Aminotrans (AST/SGOT 21 U/L (12-37); Bilirubin, Total 0.4 mg/dL (0.1-1.0); Blood Urea Nitrogen 18 mg/dL (8-24); Bun/Creatinine Ratio 23.2 (12.0-20.0); CO2, Blood 23 mmol/L (21-32); Chloride, Blood 103 mmol/L (98-108); Creatinine, Blood 0.78 mg/dL (0.40-1.00); Globulin, Blood 3.4 g/dL (2.2-4.0); Glomerular Filtration Rate >60 (60-); Glucose, Blood 163 mg/dL (70-99); Potassium, Blood 4.6 mmol/L (3.5-5.5); Sodium, Blood 130 mmol/L (136-145); Total Protein, Blood 5.9 g/dL (6.4-8.2)
[2020-07-05 04:30] LABS: Percent Saturation 14.4 % (15.0-50.0)
--- NOTE | 2020-07-05 06:31 | NUR ---
SHIFT SUMMARY NO ACUTE CHANGES. CONTINUES WITH C/O 6-8/10 PAIN IN LEFT STUMP. STATES THAT DILAUDID CIRCULATION ANALYST IS HELPING, BUT HAS BREAKTHROUGH PAIN. OCCASIONAL EPISODES OF CRYING AND MOANING. VSS, ALTHOUGH BP IS OCCASIONALLY LOW. HR 70-0s. REMAINS ON RA WITH SATS 96-100%. RESPIRATIONS EVEN AND UNLABORED. ENCOURAGED REPOSITIONING BUT PT TENDS TO MOVE BACK TO HER BACK FREQUENTLY. LEFT AKA DRSG D/I. COCCYX DRSG INTACT. VOIDING WITHOUT DIFFICULTY. TOLERATING DIET. DENIES C/O NAUSEA. NS INFUSING AT 100CC/HR PER ORDER. PT ONLY HAS ONE IV AT THIS TIME- BECAME UPSET WHEN TOLD THAT ANOTHER IV WAS NEEDED. ALL IV MEDS ARE COMPATIBLE, SO WILL CONTINUE WITH 1 IV FOR NOW. WILL REPORT TO ONCOMING RN WHEN AVAILABLE.
--- NOTE | 2020-07-05 08:31 | NUR ---
ASSUMED CARE RECEIVED REPORT FROM CHUN RODRIGUES. PT IS ALERT AND ORIENTED X 4. STABLE VITALS, ROOM AIR, SINUS RHYTHM. PT ON DILAUDID AUTO SERVICE REPRESENTATIVE @ 0.5 MG/HR, WITH A AUTO SERVICE REPRESENTATIVE DOSE OF 1 MG ALLOWED EVERY 30 MINs. NS INFUSING AT 100 ML/HR. BED LOW AND LOCKED. CALL LIGHT WITHIN REACH. AUTO SERVICE REPRESENTATIVE WITHIN REACH.
--- NOTE | 2020-07-05 15:44 | NUR ---
pt anxious and cries out at times. Pt alert and oriented but drifts off and displays some mild delirium and aggitation. Reviewed symptoms with pt. She denies headaches or ringing in ears. she is having some back and rib soreness. She denines nausea, gerd or abdominal pain. She sattes her appetiete has been awfula nd trouble eating. She has been chronically constipated. Shas chronic low back pain and p[evlic pain her pain today is waved of acute pain to the stump. She was evasive about question on if she is feeling withdrawls. Advised her we went up on her neurontin and we need to be carfule with sedatives. Last time she was here she reponded well to adjuctive therapy. Gave her spearmint and lavender patches put them on a tab on her table so she could hold them up. She was mimicing smoking and it soother her. Revied nursing con coaching her when she get anxious. we went through channels on tv til we found one that was comforting. She states she is living on her own and likes it. She is fearful of the future and her needs. Will follow up with plan of care and repeat assessments.
--- NOTE | 2020-07-05 15:55 | NUR ---
Spiritual care visit conducted. Patient is lying in bed and crying in pain. I try to talk with patient but the pain is too distracting. Patient does allow for prayer which she is quiet for and verbalizes appreciation for. I talk with Palliative Care RN Ronda Hughes about the surgery and pain management. I listen in as she and patient's RN discuss that she has been given all that has been ordered. I will continue to remain available to patient and family.
--- NOTE | 2020-07-06 05:56 | NUR ---
LYING IN SEMI FOWLERS WITH EYES OPEN WHILE WATCHING TV. AAO X3 WITH INTERMITTENT CONFUSION NOTED. PT BECOMES ANXIOUS WHEN SHE IS UNABLE TO IMMEDIATELY FIND PAIN BUTTON FOR CLINICAL TRAINING COORDINATOR PAIN MANAGEMENT. NURSING ABLE TO REDIRECT PT EACH TIME. LLE ELEVATED ON PILLOWS FOR COMFORT. PT DID REMOVED STUMP SOCK AGAIN. AREA CLEANED AND NEW DRESSINGS PLACED, C/O SEVER PAIN BUT WAS ABLE TO MANAGE IT WITH CLINICAL TRAINING COORDINATOR. DENEIS FURTHER NEEDS OR WANTS AT THIS TIME. SAFETY MEASURES IN PLACE. WILL CONTINUE TO MONITOR AND GIVE HAND OFF TO ONCOMING SHIFT USING SBAR.
--- NOTE | 2020-07-06 15:54 | NUR ---
DR. MOSES NOTIFIED AT THIS TIME OF PT HTN, SEE NEW ORDER
--- NOTE | 2020-07-06 18:44 | NUR ---
SUMMARY: NO CHANGE TODAY. PT IS POD2 L AKA. STUMP SOCK CDI, PT REPORTS LEG IS MOST COMFORTABLE ELEVATED. ABLE TO WORK WITH PT/OT TODAY. VSS, A/O. DR. MOSES IS AWARE OF HTN, SEE NEW ORDER. PT ASYMPTOMATIC. LEGAL AID DC'D AND PT STARTED ON PO PAIN MANAGEMENT. PAIN SEEMS MANAGED WHEN PT AT REST, BUT INCREASES WITH MOVEMENT AND USING BEDPAN. BLOOD SUGARS STABLE. NO ACUTE SAFETY CONCERNS AT THIS TIME.
--- NOTE | 2020-07-07 07:28 | NUR ---
SUMMARY PT SLEEPING IN BETWEEN PAIN MEDS. EASILY DISTRACTABLE.CBG 253 TONIGHT.
--- NOTE | 2020-07-07 08:03 | NUR ---
07/07/20 0803 Kelsea Casas VERIFICATION, AUDITS.
--- NOTE | 2020-07-07 12:51 | NUR ---
SPOKE WITH SARAH ORTIZ RN AT ABOUT 1130. PLAN TO TRANSFER PT TO [facility] AT ABOUT 1345.
--- NOTE | 2020-07-07 14:33 | NUR ---
PT TRANSFER: REPORT CALLED TO [facility] AT ABOUT 1212. TRANSPORT HERE AT 1345. PT TRANSFERED [facility] GIVEN PACKET.
== END 2020-07-07 13:56 | DRG 907 ==
LOC: ER 18:35 → ICUE 18:36 → ICUW 18:36 → ICUE 23:29 → SURS 07-05 18:01
PROVIDERS: Emergency Medicine; Internal Medicine; Orthopaedic Surgery; ADMIT Internal Medicine
PROC: 0Y6D0Z3 Detachment at Left Upper Leg, Low, Open Approach (ICD-10-PCS; principal; 2020-07-04 12:30)
DX: T38.3X2A Poisoning by insulin and oral hypoglycemic [antidiabetic] drugs, intentional self-harm, initial encounter (principal); A41.02 Sepsis due to Methicillin resistant Staphylococcus aureus; G92 Toxic encephalopathy; M86.9 Osteomyelitis, unspecified; E11.52 Type 2 diabetes mellitus with diabetic peripheral angiopathy with gangrene; N17.9 Acute kidney failure, unspecified; E87.1 Hypo-osmolality and hyponatremia; T87.44 Infection of amputation stump, left lower extremity; I25.2 Old myocardial infarction; F17.210 Nicotine dependence, cigarettes, uncomplicated; Z89.512 Acquired absence of left leg below knee; I25.10 Atherosclerotic heart disease of native coronary artery without angina pectoris; E78.5 Hyperlipidemia, unspecified; Z89.421 Acquired absence of other right toe(s); Z95.5 Presence of coronary angioplasty implant and graft; E87.6 Hypokalemia; G89.4 Chronic pain syndrome; G43.909 Migraine, unspecified, not intractable, without status migrainosus; F32.9 Major depressive disorder, single episode, unspecified; F41.9 Anxiety disorder, unspecified; Z85.42 Personal history of malignant neoplasm of other parts of uterus; E87.5 Hyperkalemia; G89.18 Other acute postprocedural pain; N18.3 Chronic kidney disease, stage 3 (moderate); E11.22 Type 2 diabetes mellitus with diabetic chronic kidney disease; E11.40 Type 2 diabetes mellitus with diabetic neuropathy, unspecified; E16.0 Drug-induced hypoglycemia without coma; I12.9 Hypertensive chronic kidney disease with stage 1 through stage 4 chronic kidney disease, or unspecified chronic kidney disease; Z79.4 Long term (current) use of insulin
CPT/HCPCS: 36415; 80048; 80053; 80202; 81001; 81025; 82550; 82728; 82947; 83540; 83550; 84443; 85025; 85610; 85651; 86140; 87071; 87075; 87077; 87086; 87186; 87205; 88305; 88307; 88311; 93005; 93010; 96361; 96372; 96374; 96375; 96376; 97110; 97162; 97166; 97535; 99285-25; A9270; A9270-GY; G0378; G0480; J0696; J1170; J1650; J1885; J2020; J2250; J2370; J2405; J2704; J3010; J3370; J3480; J7030; J7040; J7050; J7120; U0002

== ENCOUNTER 2020-10-09 16:13 | Emergency (ER) | payer OTHER ==
[~2020-10-09] VITALS: Ht 170.2 cm; Wt 93.9 kg
[~2020-10-09 16:13] MED LIST changes: +MORP15ER PO; +MORP30ER PO; +OXYC10TA19 PO
[2020-10-09 17:33] LABS: BASOPHILS ABSOLUTE AUTO 0.06 K/mm3 (0.00-0.23); BASOPHILS PERCENT AUTO 1 % (0-2); EOSINOPHILS ABSOLUTE AUTO 0.29 K/mm3 (0.00-0.68); EOSINOPHILS PERCENT AUTO 4 % (0-6); Hematocrit 49.2 % (33.0-51.0); Hemoglobin 15.8 g/dL (11.5-16.0); IMMATURE GRAN ABSOLUTE AUTO 0.13 K/mm3 (0.00-0.10); IMMATURE GRAN PERCENT AUTO 2 % (0-1); LYMPHOCYTES ABSOLUTE AUTO 1.05 K/mm3 (0.84-5.20); LYMPHOCYTES PERCENT AUTO 16 % (21-46); MONOCYTES ABSOLUTE AUTO 0.32 K/mm3 (0.16-1.47); MONOCYTES PERCENT AUTO 5 % (4-13); Mean Corpuscular HGB 25.8 pg (26.0-34.0); Mean Corpuscular HGB Conc 32.1 g/dL (31.5-36.5); Mean Corpuscular Volume 80 fL (80-100); Mean Platelet Volume 11.4 fL (9.1-12.4); NEUTROPHILS ABSOLUTE AUTO 4.73 K/mm3 (1.96-9.15); NEUTROPHILS PERCENT AUTO 72 % (41-73); Platelet Count 175 K/mm3 (150-400); Red Blood Cell Count 6.13 M/mm3 (3.80-5.20); White Blood Cell Count 6.58 K/mm3 (4.00-11.30)
[2020-10-09 18:05] LABS: Alanine Aminotransfer (ALT/SGP 32 U/L (12-78); Albumin, Blood 3.4 g/dL (3.4-5.0); Albumin/Globulin Ratio 0.8 (0.8-1.8); Alk Phos 173 U/L (50-136); Anion Gap 8 mmol/L (6-16); Aspartate Aminotrans (AST/SGOT 25 U/L (12-37); Bilirubin, Total 0.3 mg/dL (0.1-1.0); Blood Urea Nitrogen 13 mg/dL (8-24); Bun/Creatinine Ratio 19.6 (12.0-20.0); CO2, Blood 25 mmol/L (21-32); Calcium, Blood 9.2 mg/dL (8.5-10.1); Chloride, Blood 99 mmol/L (98-108); Creatinine, Blood 0.66 mg/dL (0.40-1.00); Globulin, Blood 4.3 g/dL (2.2-4.0); Glomerular Filtration Rate >60 (60-); Glucose, Blood 257 mg/dL (70-99); Potassium, Blood 4.5 mmol/L (3.5-5.5); Sodium, Blood 132 mmol/L (136-145); Total Protein, Blood 7.7 g/dL (6.4-8.2)
[2020-10-09] MEDS ORDERED: CEPH500 PO (18:27)
[2020-10-09] MEDS ORDERED: Bactrim Ds Tab1 EACH PO (18:27)
== END 2020-10-09 20:25 | disposition home or self-care (01) ==
LOC: ER 16:13
PROVIDERS: Physician Assistant
DX: E11.621 Type 2 diabetes mellitus with foot ulcer (principal); L97.519 Non-pressure chronic ulcer of other part of right foot with unspecified severity; I10 Essential (primary) hypertension; I25.2 Old myocardial infarction; F17.200 Nicotine dependence, unspecified, uncomplicated; Z95.5 Presence of coronary angioplasty implant and graft
CPT/HCPCS: 36415; 73620; 80053; 83605; 85025; 85651; 86140; 87070; 87077; 87186; 87205; 93926; 99284-25

== ENCOUNTER 2020-10-20 01:47 | Day surgery (SDC) | payer OTHER ==
[~2020-10-20 01:47] MED LIST changes: -BACL10 PO; -BASAGLAR K100 UNIT/1 SQ; +CEPH500 PO; -CLOP75 PO; -EUTHYROX50 MCG PO; -FURO20 PO; -GABA600 PO; +KEFLEX500 MG PO; -NOVOLOG FL100 UNIT/3 SC; -SENN187 PO; -TOPI50 PO
== END 2020-10-20 23:25 | disposition home or self-care (01) ==
LOC: WOUND 01:47
DX: E11.621 Type 2 diabetes mellitus with foot ulcer (principal); L97.512 Non-pressure chronic ulcer of other part of right foot with fat layer exposed; S91.301D Unspecified open wound, right foot, subsequent encounter; I73.9 Peripheral vascular disease, unspecified; F17.210 Nicotine dependence, cigarettes, uncomplicated; I10 Essential (primary) hypertension; X58.XXXD Exposure to other specified factors, subsequent encounter; Z79.4 Long term (current) use of insulin
CPT/HCPCS: A9270; G0463

== ENCOUNTER 2020-10-27 02:06 | Day surgery (SDC) | payer OTHER | END 2020-10-27 23:55 | disposition home or self-care (01) | LOC: WOUND 02:06 | DX: E11.621 Type 2 diabetes mellitus with foot ulcer (principal); L97.512 Non-pressure chronic ulcer of other part of right foot with fat layer exposed; E11.51 Type 2 diabetes mellitus with diabetic peripheral angiopathy without gangrene; S91.301D Unspecified open wound, right foot, subsequent encounter; I10 Essential (primary) hypertension; I25.10 Atherosclerotic heart disease of native coronary artery without angina pectoris; I25.2 Old myocardial infarction; Z95.5 Presence of coronary angioplasty implant and graft; Z86.73 Personal history of transient ischemic attack (TIA), and cerebral infarction without residual deficits; Z72.0 Tobacco use | CPT/HCPCS: A9270 ==

== ENCOUNTER 2020-11-17 02:20 | Day surgery (SDC) | payer OTHER | END 2020-11-17 23:45 | disposition home or self-care (01) | LOC: WOUND 02:20 | DX: E11.621 Type 2 diabetes mellitus with foot ulcer (principal); L97.512 Non-pressure chronic ulcer of other part of right foot with fat layer exposed; E11.51 Type 2 diabetes mellitus with diabetic peripheral angiopathy without gangrene; Z72.0 Tobacco use; Z86.73 Personal history of transient ischemic attack (TIA), and cerebral infarction without residual deficits; I25.10 Atherosclerotic heart disease of native coronary artery without angina pectoris | CPT/HCPCS: A9270 ==

== ENCOUNTER 2020-12-01 00:49 | Day surgery (SDC) | payer OTHER | END 2020-12-01 23:50 | disposition home or self-care (01) | LOC: WOUND 00:49 | DX: E11.621 Type 2 diabetes mellitus with foot ulcer (principal); L97.512 Non-pressure chronic ulcer of other part of right foot with fat layer exposed; E11.51 Type 2 diabetes mellitus with diabetic peripheral angiopathy without gangrene; I25.2 Old myocardial infarction; I10 Essential (primary) hypertension; I25.10 Atherosclerotic heart disease of native coronary artery without angina pectoris; Z72.0 Tobacco use; Z86.73 Personal history of transient ischemic attack (TIA), and cerebral infarction without residual deficits; Z95.5 Presence of coronary angioplasty implant and graft | CPT/HCPCS: A9270 ==

== ENCOUNTER 2020-12-15 01:08 | Day surgery (SDC) | payer OTHER | END 2020-12-15 22:47 | disposition home or self-care (01) | LOC: WOUND 01:08 | DX: E11.621 Type 2 diabetes mellitus with foot ulcer (principal); L97.512 Non-pressure chronic ulcer of other part of right foot with fat layer exposed; I73.9 Peripheral vascular disease, unspecified; I10 Essential (primary) hypertension; I25.2 Old myocardial infarction; Z72.0 Tobacco use; Z86.73 Personal history of transient ischemic attack (TIA), and cerebral infarction without residual deficits ==

== ENCOUNTER 2020-12-22 00:53 | Day surgery (SDC) | payer OTHER | END 2020-12-22 23:09 | disposition home or self-care (01) | LOC: WOUND 00:53 | DX: E11.621 Type 2 diabetes mellitus with foot ulcer (principal); L97.512 Non-pressure chronic ulcer of other part of right foot with fat layer exposed; I25.10 Atherosclerotic heart disease of native coronary artery without angina pectoris; I10 Essential (primary) hypertension; Z95.5 Presence of coronary angioplasty implant and graft; Z99.3 Dependence on wheelchair; Z86.73 Personal history of transient ischemic attack (TIA), and cerebral infarction without residual deficits; Z89.421 Acquired absence of other right toe(s) | CPT/HCPCS: A9270 ==

== ENCOUNTER 2021-01-12 00:34 | Day surgery (SDC) | payer OTHER | END 2021-01-12 22:52 | disposition home or self-care (01) | LOC: WOUND 00:34 | DX: E11.621 Type 2 diabetes mellitus with foot ulcer (principal); L97.512 Non-pressure chronic ulcer of other part of right foot with fat layer exposed; L97.418 Non-pressure chronic ulcer of right heel and midfoot with other specified severity; L89.322 Pressure ulcer of left buttock, stage 2; E11.51 Type 2 diabetes mellitus with diabetic peripheral angiopathy without gangrene; I25.2 Old myocardial infarction; I25.10 Atherosclerotic heart disease of native coronary artery without angina pectoris; S90.31XA Contusion of right foot, initial encounter; W22.8XXA Striking against or struck by other objects, initial encounter; Z86.73 Personal history of transient ischemic attack (TIA), and cerebral infarction without residual deficits; Z95.5 Presence of coronary angioplasty implant and graft; Z89.431 Acquired absence of right foot; Z72.0 Tobacco use | CPT/HCPCS: A9270 ==

== ENCOUNTER 2021-02-02 00:47 | Day surgery (SDC) | payer OTHER ==
[~2021-02-02 00:47] MED LIST changes: +BACL10 PO; +BASAGLAR K100 UNIT/1 SQ; +CLOP75 PO; +EUTHYROX50 MCG PO; +FURO20 PO; +GABA600 PO; +NOVOLOG FL100 UNIT/3 SC; +SENN187 PO; +TOPI50 PO
== END 2021-02-02 23:28 | disposition home or self-care (01) ==
LOC: WOUND 00:47
DX: E11.621 Type 2 diabetes mellitus with foot ulcer (principal); L97.512 Non-pressure chronic ulcer of other part of right foot with fat layer exposed; L97.519 Non-pressure chronic ulcer of other part of right foot with unspecified severity; L89.322 Pressure ulcer of left buttock, stage 2; I73.9 Peripheral vascular disease, unspecified; Z72.0 Tobacco use; I10 Essential (primary) hypertension; Z86.73 Personal history of transient ischemic attack (TIA), and cerebral infarction without residual deficits; I25.10 Atherosclerotic heart disease of native coronary artery without angina pectoris; I25.2 Old myocardial infarction; Z95.5 Presence of coronary angioplasty implant and graft
CPT/HCPCS: A9270

== ENCOUNTER 2021-03-02 00:22 | Day surgery (SDC) | payer OTHER ==
[~2021-03-02 00:22] MED LIST changes: -BACL10 PO; -BASAGLAR K100 UNIT/1 SQ; -CLOP75 PO; -EUTHYROX50 MCG PO; -FURO20 PO; -GABA600 PO; -NOVOLOG FL100 UNIT/3 SC; -SENN187 PO; -TOPI50 PO
== END 2021-03-02 22:49 | disposition home or self-care (01) ==
LOC: WOUND 00:22
DX: E11.621 Type 2 diabetes mellitus with foot ulcer (principal); L97.512 Non-pressure chronic ulcer of other part of right foot with fat layer exposed; L97.519 Non-pressure chronic ulcer of other part of right foot with unspecified severity; L89.322 Pressure ulcer of left buttock, stage 2; I73.9 Peripheral vascular disease, unspecified; Z72.0 Tobacco use; I10 Essential (primary) hypertension; I25.10 Atherosclerotic heart disease of native coronary artery without angina pectoris; Z95.5 Presence of coronary angioplasty implant and graft; I25.2 Old myocardial infarction; Z86.73 Personal history of transient ischemic attack (TIA), and cerebral infarction without residual deficits; Z88.0 Allergy status to penicillin
CPT/HCPCS: A9270; G0463

== ENCOUNTER 2021-03-09 22:03 | Emergency (ER) | payer OTHER ==
[~2021-03-09] VITALS: Ht 170.2 cm; Wt 96.6 kg
[2021-03-09] MEDS ORDERED: Norco 5-325 Ta1 EACH PO (23:50)
== END 2021-03-10 01:22 | disposition home or self-care (01) ==
LOC: ER 22:03
DX: M79.605 Pain in left leg (principal); E11.9 Type 2 diabetes mellitus without complications; I10 Essential (primary) hypertension; I25.2 Old myocardial infarction; Z86.73 Personal history of transient ischemic attack (TIA), and cerebral infarction without residual deficits; Z79.899 Other long term (current) drug therapy; Z79.4 Long term (current) use of insulin; W01.0XXA Fall on same level from slipping, tripping and stumbling without subsequent striking against object, initial encounter; Y93.89 Activity, other specified; Y92.009 Unspecified place in unspecified non-institutional (private) residence as the place of occurrence of the external cause
CPT/HCPCS: 73552; 96374; 96375; 96376; 99284-25; J1170; J1885

== ENCOUNTER 2021-03-28 18:28 | Inpatient (IN) | payer OTHER ==
[~2021-03-28] VITALS: Ht 162.6 cm; Wt 96.9 kg
[2021-03-28 20:56] LABS: Hematocrit 41.4 % (33.0-51.0); Mean Corpuscular HGB 26.8 pg (26.0-34.0); Mean Corpuscular HGB Conc 33.8 g/dL (31.5-36.5); Mean Corpuscular Volume 79 fL (80-100); Mean Platelet Volume 10.6 fL (9.1-12.4); Platelet Count 224 K/mm3 (150-400); RDW Coefficient Variation 14.6 % (11.7-14.2); RDW Standard Deviation 42.3 fL (35.1-46.3); Red Blood Cell Count 5.22 M/mm3 (3.80-5.20)
[2021-03-28 21:12] LABS: Anion Gap 9 mmol/L (6-16); Blood Urea Nitrogen 27 mg/dL (8-24); Bun/Creatinine Ratio 34.6 (12.0-20.0); CO2, Blood 28 mmol/L (21-32); Calcium, Blood 8.9 mg/dL (8.5-10.1); Chloride, Blood 87 mmol/L (98-108); Creatinine, Blood 0.78 mg/dL (0.40-1.00); Glomerular Filtration Rate >60 (60-); Glucose, Blood 312 mg/dL (70-99); Potassium, Blood 3.9 mmol/L (3.5-5.5); Sodium, Blood 124 mmol/L (136-145)
[2021-03-28 21:15] LABS: BAND PERCENT MAN 25 % (0-8); BASOPHILS PERCENT MAN 0 % (0-2); EOSINOPHILS PERCENT MAN 0 % (0-6); LYMPHOCYTES PERCENT MAN 3 % (21-46); MONOCYTES PERCENT MAN 3 % (4-13); NEUTROPHILS ABSOLUTE MAN 22.18 K/mm3 (1.96-9.15); SEG NEUTROPHILS PERCENT MAN 69 % (41-73); TOTAL CELLS COUNTED 100
[2021-03-28] MEDS ORDERED: BASAGLAR K100 UNIT/1 SQ (22:34)
[2021-03-28] MEDS ORDERED: CLOP75 PO (22:34)
[2021-03-28] MEDS ORDERED: GABA600 PO (22:34)
[2021-03-28] MEDS ORDERED: CARV3.125 PO (22:34)
[2021-03-28] MEDS ORDERED: FURO20 PO (22:35)
[2021-03-28] MEDS ORDERED: BACL10 PO (22:35)
[2021-03-28] MEDS ORDERED: NOVOLOG FL100 UNIT/3 SC (22:35)
[2021-03-28] MEDS ORDERED: BUSP5 PO (22:35)
[2021-03-28] MEDS ORDERED: SENN187 PO (22:35)
[2021-03-28] MEDS ORDERED: GLIP5 PO (22:35)
[2021-03-28] MEDS ORDERED: TOPI50 PO (22:35)
[2021-03-28] MEDS ORDERED: Prinivil10 MG PO (22:35)
[2021-03-28] MEDS ORDERED: MIRALAX17 GM PO (22:35)
[2021-03-28] MEDS ORDERED: EUTHYROX50 MCG PO (22:35)
[2021-03-28] MEDS ORDERED: DOCU100 PO (22:35)
[2021-03-29 02:50] LABS: Hematocrit 37.1 % (33.0-51.0); Hemoglobin 12.7 g/dL (11.5-16.0); Mean Corpuscular HGB 26.5 pg (26.0-34.0); Mean Corpuscular HGB Conc 34.2 g/dL (31.5-36.5); Mean Corpuscular Volume 78 fL (80-100); Mean Platelet Volume 10.1 fL (9.1-12.4); Platelet Count 198 K/mm3 (150-400); RDW Coefficient Variation 14.5 % (11.7-14.2); RDW Standard Deviation 40.5 fL (35.1-46.3); Red Blood Cell Count 4.79 M/mm3 (3.80-5.20); White Blood Cell Count 21.55 K/mm3 (4.00-11.30)
[2021-03-29 03:08] LABS: Alanine Aminotransfer (ALT/SGP 42 U/L (12-78); Albumin, Blood 2.4 g/dL (3.4-5.0); Albumin/Globulin Ratio 0.6 (0.8-1.8); Alk Phos 171 U/L (50-136); Anion Gap 10 mmol/L (6-16); Aspartate Aminotrans (AST/SGOT 62 U/L (12-37); BAND PERCENT MAN 12 % (0-8); BASOPHILS PERCENT MAN 0 % (0-2); Bilirubin, Total 1.3 mg/dL (0.1-1.0); Blood Urea Nitrogen 29 mg/dL (8-24); Bun/Creatinine Ratio 37.1 (12.0-20.0); CO2, Blood 25 mmol/L (21-32); Calcium, Blood 8.5 mg/dL (8.5-10.1); Chloride, Blood 89 mmol/L (98-108); Creatinine, Blood 0.78 mg/dL (0.40-1.00); EOSINOPHILS PERCENT MAN 0 % (0-6); Glomerular Filtration Rate >60 (60-); Glucose, Blood 392 mg/dL (70-99); LYMPHOCYTES ABSOLUTE MAN 0.43 K/mm3 (0.84-5.20); LYMPHOCYTES PERCENT MAN 2 % (21-46); MONOCYTES ABSOLUTE MAN 0.64 K/mm3 (0.16-1.47); MONOCYTES PERCENT MAN 3 % (4-13); NEUTROPHILS ABSOLUTE MAN 20.47 K/mm3 (1.96-9.15); Potassium, Blood 4.3 mmol/L (3.5-5.5); SEG NEUTROPHILS PERCENT MAN 83 % (41-73); Sodium, Blood 124 mmol/L (136-145); TOTAL CELLS COUNTED 100; Total Protein, Blood 6.4 g/dL (6.4-8.2)
--- NOTE | 2021-03-29 06:37 | NUR ---
SUMMARY PTS CBG 403 AND PT REQUESTING CHANGE OF PAIN MED.BUSPAR X1 PER NEW ORDER, HAS BEEN INEFFECTIVE FOR SLEEP AND ANXIETY.ALSO CONTINUES ALMOST CONSTANT PULLING AT GOWN,WRAPPING IV TUBING MULTIPLE TIMES AROUND ARM, UNABLE TO OBTAIN UTOX DUE TO INCONT VOID.PT TRIED BEDPAIN, BUT NO VOID.I PLACED CALL OUT TO DR LOPEZ AND HE ARRIVED AT BEDSIDE.SEE ORDERS RECEIVED.
--- NOTE | 2021-03-29 11:01 | NUR ---
POSITIVE BLOOD CX GRAM + COCCI IN CHAINS. NOTIFIED DR WELLS; WILL REVIEW ORDERS/CHART.
--- NOTE | 2021-03-29 11:03 | NUR ---
HALLUCINATING PT REPORTING SEEING SPIDER ON CEILING. RN AND ANIMAL CARETAKER PRESENT AND NOT SPIDER NOTED.
[2021-03-29 12:24] LABS: SARS-Cov-2 (COVID-19) PCR, MMC NEGATIVE (NEGATIVE)
--- NOTE | 2021-03-29 13:34 | NUR ---
PT'S CBG [address] AT [address] PEREZ, NO NEW ORDERS. ADMINISTERED 10 UNITS HUMALOG PER SS ORDERS. PT WOKE TO VOICE AND THEN RETURNED TO SLEEP. CALL LIGHT IN REACH.
--- NOTE | 2021-03-29 15:01 | NUR ---
SLEEPING DR LYNN IN TO SEE PT. PT BARELY WOKE, COULD NOT CONVERSE W/DR LYNN. BREATHING E/U. HAS BEEN SLEEPING SINCE CAREGIVER IN TO SEE HER THIS AM AT APPROXIMATELY 1130. CALL LIGHT IN REACH.
--- NOTE | 2021-03-29 15:56 | NUR ---
PT LETHARGIC WILL WAKE BRIEFLY AND ANSWER YES/NO QUESTIONS AND RETURN TO SLEEP. HYPOTENSIVE AT 84/56 AND TACHY IN 110S. 02 SATS 94% ON RA. CBG 260. CALLED DR PEREZ, ORDERS OBTAINED FOR FLUID BOLUS AND VBG. LAB IN TO DRAW. FLUID BOLUS RUNNING.
[2021-03-29 16:00] LABS: Base Excess Venous 2.3 mmol/L; Bicarbonate Venous 25.6 mmol/L (24.0-30.0); PCO2 Venous 41.4 mmHg (38-42); PO2 Venous 34.2 mmHg (38-42); pH Blood Venous 7.42 (7.34-7.37)
--- NOTE | 2021-03-29 16:40 | NUR ---
VBG AND BOLUS FLUID BOLUS COMPLETE. DISCUSSED VBG RESULTS W/DR PEREZ. NO NEW ORDERS AT THIS TIME. PT WAKES TO VOICE AND ANSWERS YES/NO QUESTIONS AND THEN RETURNS TO SLEEP. CALL LIGHT IN REACH.
--- NOTE | 2021-03-29 18:33 | NUR ---
DR PEREZ IN TO SEE PT PT BARELY WOKE WHEN DR PEREZ IN. PUPILS SLUGGISH TO LIGHT. ADMINSTERED TWO DOSES NARCAN PER ORDERS. PT MORE ALERT BUT NOT AT BASELINE. DOES NOT FOCUS ON LIGHT OR FINGER. LUE FLACCID, WAS MOVING THIS AM. TONGUE MIDLINE, GRIN EQUAL. NOTIFIED DR PEREZ. ORDERS FOR STAT HEAD CT W/O CONTRAST OBTAINED. NOTIFIED SANITIZER. PT NOW STATING FEELS SOME NUMBNESS TO R SIDE MOUTH, POINTS TO AREA WITH R HAND. PT RESTLESS IN BED. AWAITING CT. CALL LIGHT IN REACH.
--- NOTE | 2021-03-29 19:35 | NUR ---
DR PEREZ AT BEDSIDE ORDERED THIRD DOSE OF 0.4MG IV NARCAN WHICH WAS GIVEN PER ORDERS. PT SLOWLY BECOMING MORE INTERACTIVE WITH STAFF. CT COMPLETED. STAT BMP ORDERED, LAB CALLED AND NOTIFIED. ORDERS TO PLACE LUCIO CATH AND GIVE FLUID BOLUS OBTAINED. FLUID BOLUS INFUSING NOW. ORDERS OBTAINED TO TRANSFER TO PCU. AWAITING BED ASSIGNMENT.
[2021-03-29 20:09] LABS: Anion Gap 7 mmol/L (6-16); Blood Urea Nitrogen 36 mg/dL (8-24); Bun/Creatinine Ratio 38.9 (12.0-20.0); CO2, Blood 27 mmol/L (21-32); Calcium, Blood 8.8 mg/dL (8.5-10.1); Chloride, Blood 95 mmol/L (98-108); Creatinine, Blood 0.93 mg/dL (0.40-1.00); Glomerular Filtration Rate >60 (60-); Glucose, Blood 186 mg/dL (70-99); Potassium, Blood 3.7 mmol/L (3.5-5.5); Sodium, Blood 129 mmol/L (136-145)
--- NOTE | 2021-03-29 20:10 | NUR ---
AT SHIFT CHANGE, DR PINK @ BEDSIDE WITH PT AND DAY RN. PT LETHARGIC,OCC ANSWERS ? ABLE TO LIFT R ARM WITH PURPOSE WITHOUT DIFFICULTY.UNABLE TO LIFT L ARM,BUT WHEN L ARM RAISED BY AND ALLOWED TO DROP, PT ABLE TO SLOW ARM TO BED. L ARM IS NOT COMPLETELY FLACCID. HOWEVER,IS NOT ABLE TO USE L HAND AND ARM SHE WAS LAST NIGHT.PUPILS SLUGGISH TONIGHT,AND PT NOT TRACKING WHICH IS ALSO DECLINE SINCE LAST NIGHT.LUCIO PLACED FOR RETENTION AND UTOX /UA OBTAINED.PCU CHARGE PLACING NEW IV SITE PRIOR R FA IV SITE STARTING TO BECOME FIRM WITH SLIGHT SWELLLING. DCD CATH INTACT.PT TO BE TRANSFERRED TO PCU AFTER CTA COMPLETED.
[2021-03-29 20:19] LABS: Source, Urine Catheter
[2021-03-29 20:23] LABS: Appearance, Urine Clear (Clear); Bilirubin, Urine Neg (Neg); Blood, Urine 4+ (Neg); Color, Urine Amber (P-Yellow); Glucose Qualitative, Urine 3+ (Neg); Ketones, Urine 2+ (Neg); Leukocyte Esterase, Urine 1+ (Neg); Nitrite, Urine Neg (Neg); Protein, Urine 3+ (Neg); Urobilinogen, Urine 1+ (Normal); pH, Urine 6.5 (5.0-8.0)
[2021-03-29 20:37] LABS: Bacteria Mod /hpf; Red Blood Cells, Urine 0-2 /hpf (0-2); Squamous Epithelial Cells Few /hpf (Few); Yeast/Fungi Urine Mod /hpf
[2021-03-29 20:43] LABS: U Amphetamine Screen Not Detected; U Barbituate Screen Not Detected; U Benzodiazapine Screen Not Detected; U Buprenorphine Screen Not Detected; U Cannabinoids Screen DETECTED; U Cocaine Screen Not Detected; U Methadone Screen Not Detected; U Methamphetamine Screen Not Detected; U Opiates Screen DETECTED; U Oxycodone Screen Not Detected; U Phencyclidine Screen Not Detected; U Propoxyphene Screen Not Detected
--- NOTE | 2021-03-29 21:15 | NUR ---
PT OUT TO IMAGING THEN TO PCU 7
--- NOTE | 2021-03-29 21:56 | NUR ---
SUMMARY REPORT GIVEN TO CARLOS MCCOLLUM ASSUMING CARE FOR PT IN PCU.
--- NOTE | 2021-03-30 06:35 | NUR ---
SHIFT SUMMARY BEDSIDE REPORT RECIEVED FROM CITLALLI RN, PT TO ROOM @2130. PATIENT IS ALERT AND ORIENTED X3, DOES NOT KNOW MONTH. UNABLE TO MOVE LUE. NPO. FACE APPEARS SYMMETRICAL. WOUNDS DRESSED AND MEPALEX IN PLACE ON COCCYX AND RIGHT FOOT WRAPPED, PICTURES IN CHART. REDNESS IN GROIN AREA. Q2 HOUR NEURO CHECKS, UNCHANGED ALL SHIFT. HOSPITALIST FAUSTO TALKED WITH PATIENT AND PATIENTS MOM ABOUT PATIENTS CONDITION, FAMILY AT BEDSIDE FOR A COUPLE HOURS DURING THE NIGHT AND UPDATED ON THE PHONE IN THIS AM. 02 SATS 94% ON RA. MOUTH SWABS PROVIDED. BLOOD PRESSURE SOFT AT 84/52 WITH MAP OF 63, HOSPITALIST AWARE OF LOW BP WHEN PATIENT WAS FIRST TRANSFERRED. CALL LIGHT IN REACH.
[2021-03-30 07:14] LABS: Hematocrit 31.7 % (33.0-51.0); Hemoglobin 10.8 g/dL (11.5-16.0); Mean Corpuscular HGB 26.6 pg (26.0-34.0); Mean Corpuscular HGB Conc 34.1 g/dL (31.5-36.5); Mean Corpuscular Volume 78 fL (80-100); Mean Platelet Volume 10.3 fL (9.1-12.4); Platelet Count 218 K/mm3 (150-400); RDW Coefficient Variation 14.6 % (11.7-14.2); RDW Standard Deviation 41.6 fL (35.1-46.3); Red Blood Cell Count 4.06 M/mm3 (3.80-5.20); White Blood Cell Count 15.52 K/mm3 (4.00-11.30)
[2021-03-30 07:32] LABS: Anion Gap 7 mmol/L (6-16); Blood Urea Nitrogen 36 mg/dL (8-24); Bun/Creatinine Ratio 49.7 (12.0-20.0); CO2, Blood 22 mmol/L (21-32); Chloride, Blood 101 mmol/L (98-108); Creatinine, Blood 0.72 mg/dL (0.40-1.00); Glomerular Filtration Rate >60 (60-); Glucose, Blood 177 mg/dL (70-99); Potassium, Blood 3.3 mmol/L (3.5-5.5); Sodium, Blood 130 mmol/L (136-145)
[2021-03-30 07:58] LABS: BAND PERCENT MAN 17 % (0-8); BASOPHILS PERCENT MAN 0 % (0-2); EOSINOPHILS PERCENT MAN 0 % (0-6); LYMPHOCYTES ABSOLUTE MAN 0.77 K/mm3 (0.84-5.20); LYMPHOCYTES PERCENT MAN 5 % (21-46); MONOCYTES ABSOLUTE MAN 0.15 K/mm3 (0.16-1.47); MONOCYTES PERCENT MAN 1 % (4-13); NEUTROPHILS ABSOLUTE MAN 14.58 K/mm3 (1.96-9.15); SEG NEUTROPHILS PERCENT MAN 77 % (41-73); TOTAL CELLS COUNTED 100
--- NOTE | 2021-03-30 10:07 | NUR ---
Pt resting in bed with her eyes closed. Pt appears comfortable with no S/S of distress at this time. This RN did not disturb Pt at this time. Spoke with Pt's mother Mariza out in the [address]. Mariza tearful and this RN offered emotional support. Listened as Mariza reports Pt would want to focus on comfort in her current condition. Mariza confirms Pt's brother Sammy as healthcare decision maker. Continued therapeutic listening. Mariza is heading home at this time. Mariza's caregiver is escorting her out. Spoke with Primary RN Thea, Dr Tena, and discussed case. Relayed mother's thoughts regarding Pt's wishes. Dr Tena reports Pt's prognosis will be more clear over the next 24 hours and comfort care would be appropriate if no improvement. Called and spoke with Pt's brother Sammy. Provided update and relayed discussion with Dr Tena. Relayed mother's discussion as well. Sammy reports being in agreement with focusing on comfort if no significant improvement in the next 24 hours. Gentle education given on comfort care and hospice philosophy with V/U made by Sammy. Sammy expresses appreciation of conversation. Palliative Care will remain available.
--- NOTE | 2021-03-30 11:24 | NUR ---
UPDATE; TELEPHONE CALL TO DR. WELLS REGARDING SOFT BP AND PATIENTS PAIN LEVEL. DR. WELLS TO DISCUSS WITH DR. PEREZ BLOOD PRESSURE [employer] AND PAIN MEDICATION OPTIONS, WILL CONTINUE TO MONITOR.
--- NOTE | 2021-03-30 18:24 | NUR ---
SHIFT SUMMARY; ASSUMED CARE AT 0700, REPORT FROM CHUN CALHOUN. AWAKES TO VERBAL STIMULI, STATES NAME AND WHEN ASKED. LUCIO CATH INPLACE, LEFT LEG AKA. 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 REPOSITIONED Q2 THROUGHOUT SHIFT. MEPILEX ON COCCYX FOR SKIN BREAKDOWN, SEE CHART FOR PHOTOS. PALLATIVE CARE MET WITH MOTHER AND SPOKE WITH BROTHER ON PHONE WHO IS DECISION MAKER. PER FAMILY WILL EVALUATE OVER THE NEXT 24 HOURS TO DECIDE IF COMFORT CARE IS APPROPRIATE. SOFT BP THROUHOUGHT SHIFT. SPOKE WITH PROVIDER REGARDING PAIN LEVEL. ATTEMPTED RECTAL TYL PER DR. PEREZ. TELEPHONE CALL IN EVENING REGARDING REQUESTS FOR PAIN MEDS. AWAKE AND ORIENTED DURING DISCUSSION REGARDING RISKS OF NARCOTICS DECREASING BP. PT STATES SHE WANTS COMFORT AND IS OK WITH THE RISKS, DR. PEREZ NOTIFIED, 25MCG IV FENTANYL GIVEN PER DR. PEREZ. LEFT SIDE REMAINS FLACCID. PUPILS EQUAL AND SLUGGISH. HOB MAINTAINED AT 30 DEGREES DURING SHIFT. REMAINS NPO DUE TO NEUROLOGICAL STATUS, WILL CONTINUE TO MONITOR AND TREAT UNTIL CHANGE OF SHIFT.
--- NOTE | 2021-03-30 20:00 | NUR ---
CALL PLACED TO TUBE LASER OPERATOR FAUSTO REGARDING PT'S REQUEST TO BE COMFORT CARE. PT IS STATING THAT "CONTROLLING PAIN IS MOST IMPORTANT RIGHT NOW." DURING BEDSIDE REPORT, PT STATES SHE SPOKE TO HER MOTHER ON THE PHONE AND THAT MOM UNDERSTANDS COMFORT CARE. PT STATES THAT HER PAIN IS 6/10, IN HER CHEST. SHE IS REQUESTING SOMETHING TO EAT AND DRINK AT THIS TIME, ALTHOUGH SHE IS NPO PER ORDER. THIS RN PLACED CALL TO FAUSTO TO DISCUSS PT'S REQUESTS FOR PAIN CONTROL AND DIETARY ORDER. PER TELEPHONE ORDER, TUBE LASER OPERATOR STATES OK TO GIVE ICE CHIPS. WILL ADD PAIN MEDICATION TO EMAR. RN WILL CONTINUE TO MONITOR.
--- NOTE | 2021-03-30 20:52 | NUR ---
gave pt dilaudid, pt became drowsy, closed eyes. reported that she was in pain, in right leg and chest. VSS remain unchanged.
--- NOTE | 2021-03-31 04:53 | NUR ---
SHIFT SUMMARY PT C/O PAIN THROUGH OUT SHIFT. SHE MADE MULTIPLE STATEMENTS, "I WANT TO BE COMFORT CARE, MY FAMILY AND MY DOCTOR KNOW THAT." TREATED REPORTED PAIN IN BUTTOCKS AND LEG WITH PAIN MEDICATION PER MAR. PT ABLE TO TOLERATE ICE CHIPS, ONE AT A TIME, WITH HOB AT 90 DEGREES. PT DECLINED HEAT OR COLD THERAPY FOR PAIN. PT STATES SHE WANTS TO EAT AND TO HAVE COMFORT MEASURES TO REDUCE HER PAIN. VSS. PT IS ABLE TO CALL AND COMMUNICATE HER NEEDS, A & O X4. PT IS ABLE TO MOVE HER LEFT ARM AT TIMES. THIS IS A NEW FINDING. WILL CONTINUE TO MONITOR.
[2021-03-31 05:39] LABS: BASOPHILS ABSOLUTE AUTO 0.03 K/mm3 (0.00-0.23); BASOPHILS PERCENT AUTO 0 % (0-2); EOSINOPHILS ABSOLUTE AUTO 0.03 K/mm3 (0.00-0.68); EOSINOPHILS PERCENT AUTO 0 % (0-6); Hematocrit 29.8 % (33.0-51.0); IMMATURE GRAN ABSOLUTE AUTO 0.28 K/mm3 (0.00-0.10); IMMATURE GRAN PERCENT AUTO 2 % (0-1); LYMPHOCYTES ABSOLUTE AUTO 0.84 K/mm3 (0.84-5.20); LYMPHOCYTES PERCENT AUTO 6 % (21-46); MONOCYTES PERCENT AUTO 4 % (4-13); Mean Corpuscular HGB 26.8 pg (26.0-34.0); Mean Corpuscular HGB Conc 33.6 g/dL (31.5-36.5); Mean Corpuscular Volume 80 fL (80-100); Mean Platelet Volume 10.3 fL (9.1-12.4); NEUTROPHILS ABSOLUTE AUTO 11.76 K/mm3 (1.96-9.15); NEUTROPHILS PERCENT AUTO 87 % (41-73); Platelet Count 217 K/mm3 (150-400); RDW Standard Deviation 43.5 fL (35.1-46.3); Red Blood Cell Count 3.73 M/mm3 (3.80-5.20); White Blood Cell Count 13.54 K/mm3 (4.00-11.30)
[2021-03-31 06:20] LABS: Anion Gap 8 mmol/L (6-16); Blood Urea Nitrogen 30 mg/dL (8-24); Bun/Creatinine Ratio 53.4 (12.0-20.0); CO2, Blood 18 mmol/L (21-32); Calcium, Blood 7.8 mg/dL (8.5-10.1); Chloride, Blood 109 mmol/L (98-108); Creatinine, Blood 0.56 mg/dL (0.40-1.00); Glomerular Filtration Rate >60 (60-); Glucose, Blood 171 mg/dL (70-99); Potassium, Blood 3.7 mmol/L (3.5-5.5); Sodium, Blood 135 mmol/L (136-145)
--- NOTE | 2021-03-31 13:24 | NUR ---
PT ARRIVED FROM PCU, TRANSFERED TO BED WITH SLIDE SHEET. PT VERY PAINFUL WITH MOVEMENT THAT RESOLVES WHEN SHE IS AT REST. CURRENTLY SHE IS SITTING IN BED WITH HER CALL LIGHT IN REACH. SHE IS REPOSITIONED ON 2 PILLOWS, DRESSINGS TO COCCYX AND R HEEL CHANGED WITH DR WELLS IN THE ROOM. PT IS AA0X4. USING CALL LIGHT APPROPRIATLY.
--- NOTE | 2021-03-31 17:36 | NUR ---
NO ACUTE CHANGES SINCE ARRIVAL TO UNIT. PT ALLOWS REPOSITIONING BUT STAYS FREQUENTLY ON R SIDE. NEW MEPILEXS APPLIED TO COCCYX AND R HEEL, WILL REPLACE WITH MEDIHONEY ADMINISTRATION. PT REQUESTED TO WAIT UNTIL AFTER DINNER. CURRENTLY PT RESTING IN BED TOLERATING PO FLUIDS WELL, REPORTS PAIN AT 9/10 CONSISTENTLY BUT WILL FALL ASLEEP WHILE TALKING AND RESTS WELL WITH EVEN RESPIRATIONS. PLAN WILL BE TO CONTINUE IV ABX AND AND WOUND TREATMENTS.
--- NOTE | 2021-03-31 18:33 | NUR ---
medihoney and new mepilex applied to coccyx and ankle. new ulcer noticed on r side inferior to rectum. open, new mepilex applied
--- NOTE | 2021-04-01 04:17 | NUR ---
SHIFT SUMMARY ASSUMED CARE OF PT AT 1900. PT IS A/OX4 WITH TIMES OF CONFUSION. FOR EXAMPLE PT WAS VERY LETHARGIC AND WILL ANSWER SOME ORIENTATION QUESTIONS WITH "I DONT KNOW", BUT THEN WILL AWAKE 20 MIN LATER AND ABLE TO ANSWER ALL QQUESTIONS APPROPIATLY. PT WAS VERY LETHARGIC T/O THE SHIFT. HEART SOUNDS REGULAR, LUNG SOUNDS DIMINISHED. PT CATHETER DRAINING ADAN URINE. PT WOUNDS WERE CHANGED PER ORDER. PT COMPLAINS OF 9/10 PAIN CONSTANTLY BUT WILL THEN BE ASLEEP AND DIFFICULT TO AROUSE. CALL LIGHT IN REACH, BED IN LOWEST POSTION.
[2021-04-01 05:43] LABS: BASOPHILS ABSOLUTE AUTO 0.05 K/mm3 (0.00-0.23); BASOPHILS PERCENT AUTO 0 % (0-2); EOSINOPHILS ABSOLUTE AUTO 0.05 K/mm3 (0.00-0.68); EOSINOPHILS PERCENT AUTO 0 % (0-6); Hematocrit 31.4 % (33.0-51.0); Hemoglobin 10.2 g/dL (11.5-16.0); IMMATURE GRAN ABSOLUTE AUTO 0.69 K/mm3 (0.00-0.10); IMMATURE GRAN PERCENT AUTO 6 % (0-1); LYMPHOCYTES ABSOLUTE AUTO 0.98 K/mm3 (0.84-5.20); LYMPHOCYTES PERCENT AUTO 8 % (21-46); MONOCYTES ABSOLUTE AUTO 0.57 K/mm3 (0.16-1.47); MONOCYTES PERCENT AUTO 5 % (4-13); Mean Corpuscular HGB 26.2 pg (26.0-34.0); Mean Corpuscular HGB Conc 32.5 g/dL (31.5-36.5); Mean Corpuscular Volume 81 fL (80-100); Mean Platelet Volume 10.3 fL (9.1-12.4); NEUTROPHILS ABSOLUTE AUTO 9.74 K/mm3 (1.96-9.15); NEUTROPHILS PERCENT AUTO 81 % (41-73); Platelet Count 225 K/mm3 (150-400); RDW Coefficient Variation 15.3 % (11.7-14.2); RDW Standard Deviation 44.9 fL (35.1-46.3); Red Blood Cell Count 3.89 M/mm3 (3.80-5.20); White Blood Cell Count 12.08 K/mm3 (4.00-11.30)
[2021-04-01 06:05] LABS: Anion Gap 9 mmol/L (6-16); Blood Urea Nitrogen 20 mg/dL (8-24); Bun/Creatinine Ratio 35.1 (12.0-20.0); CO2, Blood 18 mmol/L (21-32); Calcium, Blood 7.5 mg/dL (8.5-10.1); Chloride, Blood 103 mmol/L (98-108); Creatinine, Blood 0.57 mg/dL (0.40-1.00); Glomerular Filtration Rate >60 (60-); Glucose, Blood 152 mg/dL (70-99); Potassium, Blood 3.4 mmol/L (3.5-5.5); Sodium, Blood 130 mmol/L (136-145)
--- NOTE | 2021-04-01 14:52 | NUR ---
echocardiogram complete
--- NOTE | 2021-04-01 18:34 | NUR ---
PATIENT WITH HX OF L AKA AND L SIDED WEAKNESS. TURNING Q2 HOURS. DRESSINGS CHANGED TO SACRAL, R BUTTOCKS AND R ANKLE WOUNDS USING MEDIHONEY AND MEPILEX. VSS, ON RA. 20G IV TO L AC WNL AND SL. LUCIO TO GRAVITY WITH ADEQUATE AMOUNT OF ADAN URINE. ACHS BLOOD SUGARS, TOLERATING ADA DIET. MRI OF HEAD AND R FOOT ORDERED TODAY AND SCREENING FORM WAS SENT, BUT MRI NOT COMPLETED YET. PATIENT PLEASANT AND COOPERATIVE WITH CARE, ABLE TO MAKE NEEDS KNOWN.
--- NOTE | 2021-04-02 06:05 | NUR ---
SUMMARY: PT A/OX3 AND BUT IS VERY DROWSY AT TIMES BUT WAKEFUL TO VOICE. SHE WAS MUCH MORE ALERT THIS AM APPROPRIATELY SPECIFIES NEEDS WHEN STAFF IN ROOM. SHE HAS L.AKA W/L.SIDE WEAKNESS AND TURN SCHEDULE MAINTAINED. BACLOFEN RECIEVED FOR C/O SPASMS/PAIN FOR TOLERABLE RELIEF. SHE REPORTS PAIN TO L.HIP FROM RECENT FX. BED ALARM ON THOUGH PT MAKES NO EFFORT TO GET OOB BY SELF. WOUNDS TO R.BUTTOCKS AND R.ANKLE CLEANSED W/SKINTEGRITY THEN MEDIHONEY APPLIED AND DX'S CHANGED. RLE AND LUE ELEVATED ON PILLOWS D/T SWELLING. LUCIO PATENT AND DRAINING. MRI OF HEAD AND R.FOOT IS STILL PENDING, WILL ENSURE DAY STAFF ARE AWARE. VSS/AFEBRILE, NO ACUTE CHANGES. WCTM AND REPORT TO DAY RN.
--- NOTE | 2021-04-02 14:30 | NUR ---
Spiritual care visit conducted. Patient is sitting up in bed and alert. Patient tells me about her accident and her infection and the emotional struggles these medical issues bring. She talks about the concern her mother and brother have for her. We then discuss her thoughts on tenriism and the disappointment she has experienced with the people more then the foundations the religions are based upon. Patient expresses her desire to skip any kind of live-in rehabilitation facility and just get the infection managed and go home with her current wound care nurse setup. I reinforce helpful attitudes and practices, normalize her experience and provide therapeutic listening, spiritual guidance and a calming presence. Patient responds well and shows signs of an elevated mood.
--- NOTE | 2021-04-03 06:03 | NUR ---
SUMMARY: PT A/OX4 AND REMAINS DROWSY BUT IS WAKEFUL TO VOICE AND SPECIFIES NEEDS. SHE'S MUCH MORE ALERT THIS SHIFT AND HAD A PLEASANT SENSE OF HUMOR AND AFFECT TONIGHT. PT HAS L.AKA W/L.SIDE WEAKNESS AND NEAR FLACIDITY OF L.ARM. TURN SCHEDULE MAINTAINED AND EXT'S ELEVATED ON PILLOWS IN BED FOR SWELLING. WOUNDS TO BUTTOCKS AND R.HEEL CLEANSED W/SKINTEGRITY W/MEDIHONEY APPLIED AND MEPILEX DX'S CHANGED. RASH TO GROIN NOTED, POWDER APPLIED. PAIN TO FX'D L.HIP PERSISTS W/DILAUDID IV PRN RECIEVED X1 FOR GOOD EFFECT. IV ABX RECIEVED. LUCIO IS PATENT/DRAINING. NO ACUTE CHANGES, VSS/AFEBRILE. WCTM AND REPORT TO DAY RN.
--- NOTE | 2021-04-03 10:19 | NUR ---
Pt resting in bed upon arrival. Pt reporting 9/10 pain in her stump. Offered therapeutic listening reporting being in agreement with recommendations for SNF. No education given at this time regarding advanced care planning due to Pt's pain. Spoke with Pt's primary RN Amaya, discussed case, and relayed Pt's pain. Amaya will offer pain medication. Pallliative Care will remain available.
--- NOTE | 2021-04-03 18:11 | NUR ---
NO ACUTE CHANGES NOTED THIS SHIFT, WILL CONTINUE TO MONITOR AND REPORT TO ONCOMING RN
--- NOTE | 2021-04-04 04:16 | NUR ---
SHIFT SUMMARY PATIENT HAD NO ACUTE CHANGES OBSERVED. AXOX 3 WITH LEFT SIDE WEAKNESS AND LEFT FLACID ARM. LEFT AKA. LUCIO PATENT AND DRAINING TO GRAVITY. REPORTED LEFT AKA AND RIGHT HEEL PAIN. ALTERNATING PO AND IV DILAUDID PER EMAR. CBG 202. PIV REMAINS INTACT. IV ABX INFUSED. VSS/AFEBRILE. DENIES SOB AND N/V. CALL LIGHT IN REACH. BED IN LOWEST POSITION. WILL CONTINUE TO MONITOR UNTIL DAY SHIFT NURSE ASSUMES CARE.
[2021-04-04 07:35] LABS: Anion Gap 8 mmol/L (6-16); Blood Urea Nitrogen 19 mg/dL (8-24); Bun/Creatinine Ratio 32.9 (12.0-20.0); CO2, Blood 24 mmol/L (21-32); Calcium, Blood 7.6 mg/dL (8.5-10.1); Chloride, Blood 98 mmol/L (98-108); Creatinine, Blood 0.58 mg/dL (0.40-1.00); Glomerular Filtration Rate >60 (60-); Glucose, Blood 376 mg/dL (70-99); Potassium, Blood 3.4 mmol/L (3.5-5.5); Sodium, Blood 130 mmol/L (136-145)
[2021-04-04 10:00] LABS: SARS-Cov-2 (COVID-19) PCR, MMC NEGATIVE (NEGATIVE)
[2021-04-04] MEDS ORDERED: ASPI81CH PO (13:42)
[2021-04-04] MEDS ORDERED: ATOR80 PO (13:43)
[2021-04-04] MEDS ORDERED: CEFAZOLIN2 GM/50 M3 IV (13:45)
[2021-04-04] MEDS ORDERED: HONEY PASTE TOP (13:50)
[2021-04-04] MEDS ORDERED: Nicoderm Cq1 EAC1 TOP (13:51)
[2021-04-04] MEDS ORDERED: HYDMOR4 PO (13:51)
[2021-04-04] MEDS ORDERED: KLOR-CON 1010 ME1 PO (13:52)
[2021-04-04] MEDS ORDERED: NYSTATIN15 GM TOP (13:52)
--- NOTE | 2021-04-04 18:09 | NUR ---
NO ACUTE CHANGES. PT HAS SLEPT MOST OF THE SHIFT. PAIN MEDS GIVEN PER EMAR. PT TO DISCHARGE TODAY BUT INSURANCE ISSUES AROSE. DC PLANNERS AWARE AND WORKING TO REMEDY THE SITUATION. PTS CBG'S HAVE BEEN HIGH , INSULIN GIVEN.
--- NOTE | 2021-04-05 05:26 | NUR ---
SHIFT SUMMARY- PT. A&OX3, C/O PAIN TO L STUMP AND COCCYX. MEDICATED PER EMAR WITH GOOD EFFECT. ASLEEP MOST OF THE NIGHT, NO APPARENT DISTRESS NOTED. REPOSITIONED FOR COMFORT PRN. LUCIO CATHETER PATENT AND DRAINING, VSS. DENIED ANY OTHER NEEDS T/O THE NIGHT. CALL LIGHT WITHIN REACH AND SIDE RAILS UPX2. WILL CONT TO MONITOR.
--- NOTE | 2021-04-05 12:29 | NUR ---
SHIFT SUMMARY [facility] DISCHARGING WITH [facility]. VERBAL CONSENT GIVEN FOR PHOTO DOCUMENTATION, WOUNDS DRESSED WITH MEDIHONEY AND PICS TAKEN AND MEPILEX PLACED. GOT IV AND PO DILAUDID FOR PAIN. PIV REMOVED, POWERGLIDE PLACED THIS SHIFT. LUCIO KEPT IN PLACE PER DR WELLS DUE TO PT'S INCONTINENCE AND SIGNIFICANT SACRAL WOUNDS. REPORT CALLED TO [place] AT [facility].
== END 2021-04-05 12:48 | DRG 871 ==
LOC: ER 18:28 → PCU 21:30 → SURS 21:30 → MEDS 21:30 → SURS 23:38 → PCU 03-29 21:28 → MEDS 03-31 12:15 → ENPENDDIS 04-04 17:58 → MEDS 04-05 12:48
PROVIDERS: Emergency Medicine; Family Medicine; Hospitalist; ADMIT Internal Medicine
DX: A40.8 Other streptococcal sepsis (principal); S72.22XA Displaced subtrochanteric fracture of left femur, initial encounter for closed fracture; I63.233 Cerebral infarction due to unspecified occlusion or stenosis of bilateral carotid arteries; L03.312 Cellulitis of back [any part except buttock and flank]; E87.2 Acidosis; E87.1 Hypo-osmolality and hyponatremia; Z66 Do not resuscitate; Z20.822 Contact with and (suspected) exposure to COVID-19; R65.20 Severe sepsis without septic shock; L89.152 Pressure ulcer of sacral region, stage 2; E11.65 Type 2 diabetes mellitus with hyperglycemia; E86.0 Dehydration; E87.6 Hypokalemia; T87.81 Dehiscence of amputation stump; M79.7 Fibromyalgia; E11.51 Type 2 diabetes mellitus with diabetic peripheral angiopathy without gangrene; I87.2 Venous insufficiency (chronic) (peripheral); I25.10 Atherosclerotic heart disease of native coronary artery without angina pectoris; I10 Essential (primary) hypertension; E78.5 Hyperlipidemia, unspecified; D72.825 Bandemia; F32.9 Major depressive disorder, single episode, unspecified; F41.9 Anxiety disorder, unspecified; E03.9 Hypothyroidism, unspecified; G89.29 Other chronic pain; I25.2 Old myocardial infarction; Z88.0 Allergy status to penicillin; Z88.6 Allergy status to analgesic agent; Z79.4 Long term (current) use of insulin; Z91.14 Patient's other noncompliance with medication regimen; Z79.899 Other long term (current) drug therapy; Z86.73 Personal history of transient ischemic attack (TIA), and cerebral infarction without residual deficits; Z99.3 Dependence on wheelchair; Z79.02 Long term (current) use of antithrombotics/antiplatelets; Z95.5 Presence of coronary angioplasty implant and graft; Z90.710 Acquired absence of both cervix and uterus; Z89.612 Acquired absence of left leg above knee; Z90.89 Acquired absence of other organs; W05.0XXA Fall from non-moving wheelchair, initial encounter
CPT/HCPCS: 36415; 70450; 70496; 70498; 70551; 71045; 72193; 73552; 76705; 80048; 80053; 81001; 82803; 82947; 83605; 85025; 87040; 87086; 87106; 87147; 92610; 93306; 96374; 96375; 97110; 97163; 97166; 97530; 99285-25; A9270; J0690; J0692; J1170; J1650; J2270; J2310; J3010; J3480; J7030; J7040; J7050; Q9967; U0004